=== PATIENT | male | born 1940 | race Caucasian/White ===

== ENCOUNTER 2025-01-16 07:42 | Inpatient (IN) | payer MEDICARE, OTHER, SELFPAY ==
[2025-01-16] VITALS (50 sets, daily range): BP systolic 103–133; BP diastolic 54–88; PULSE 77–114; RESP 16; TEMP 36.4–37.3; O2SAT 88–100; BMI 16.7; BMI 21.4
--- NOTE | 2025-01-16 07:42 | XR_ITS ---
The [address] [address] Patient Name: HOLLY AGUIAR MRN: [id number] date: 1940 Sex: M Assigned Patient Location: ED.MAIN Current Patient Location: ED.MAIN Accession/Order Number: [id number] Exam Date: 01/16/2025 08:04 Report Date: 01/16/2025 08:05 At the request of: ADA RAJPUT MD Procedure: XR chest 1V Single view chest INDICATION: Shortness breath COMPARISON: None FINDINGS: Sternotomy wires. Unremarkable cardiomediastinal silhouette. Prominence of the perihilar vasculature noted. Interstitial thickening involving lungs likely interstitial edema and vascular stent. No large effusion or airspace disease. No pneumothorax. XR/XR chest 1V IMPRESSION: Findings suggestive of edema and CHF. Impression dictated by: Tavo Colon M.D. 01/16/2025 8:05 AM Dictation Location: [place] [address] Electronically authenticated by: [id number] Y Date: 01/16/2025 08:05
--- NOTE | 2025-01-16 07:42 | ECG_ITS ---
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 Measurements Intervals [place] Rate: 106 P: 100 MD: 156 QRS: 78 QRSD: 70 T: 90 QT: 300 QTc: 362 Interpretive Statements 1120 Sinus tachycardia 3433 Septal myocardial infarction, probably old [address] depression 8100 Low QRS voltage 9150 abnormal ECG No previous ECG available for comparison Electronically Signed On 01-16-2025 19:31:15 EDT by DIXON BAHENA M.D.
--- OUTSIDE RECORDS SUMMARY | 2025-01-16 07:48 | XMS_ITS | Encounter Summary ---
Author [facility] tem Address [id number] [address] [place] [address] Care Team Providers Care Garment Liner Name Role Phone Maria Teresa Suresh NON PROFIT FINANCIAL CONTROLLER-[facility] Primary Care Provi tiny Encounter Details Date Type Department Care Team (Late st Contact Info) Description 07/04/2022 [facility] [address] [place] [address] [place] [address] Maria Teresa Suresh, NON PROFIT FINANCIAL CONTROLLER-[facility] [address] [facility] B, [facility] [place] [address] Social History Tobacco Use Types Packs/Day Years Used Date Smoking Tobacco: Former Cigarettes 2 25 Smokeless Tobacco: Never Alcohol Use Standard Drinks/Week Comments No 0 (1 standard drink = 0.6 oz pur e alcohol) PHQ-2 Answer Date Recorded Total Score 0 01/10/2022 Childcare Answer Date Recorded Childcare Unknown 11/12/2018 Employment Answer Date Recorded Employment Unknown 11/12/2018 Purpose - Life Answer Date Recorded Purpose and direction in life Unknown Sex and Gender Information Value Date Recorded Sex Assigned at Not on file Legal Sex Male 1:01 PM EDT Gender Identity Not on file Sexual Orientation Not on file documented as of this encounter Miscellaneous Notes * Telephone Encounter - Sheela Sal - 07/04/2022 11:07 AM EST Patient's spouse called. Patient is applying for assistance for Januvia because previous assistancehas run out. Patient would like provider to send in refill for 90 day to [facility] if possible. Thanks. * Telephone Encounter - JUAN Jarrett - 07/04/2022 11:07 AM EST done documented in this encounter Plan of Treatment Upcoming Encounters Date Type Department Care Team (Late st Contact Info) Description 02/06/2025 4:00 PM EDT Office Visit [facility] [address] [place] [phone] Adal Dhaliwal MD [address] [place] [address] documented as of this encounter Visit Diagnoses Not on filedocumented in this encounter Additional Health Concerns Assessment Noted Time PHQ-9 Depression Total Score: 0 01/11/20 22 1:04 PM EDT documented as of this encounter Care Teams Garment Liner Relationship Specialty Start Date End Date Maria Teresa Suresh APRN-CNP [address] [place] [address] PCP - General Family Medicine 07/28/17 documented as of this encounter
--- OUTSIDE RECORDS SUMMARY | 2025-01-16 07:48 | XMS_ITS | Encounter Summary ---
Author Organization [facility] tem Address [id number] [address] [place] [address] Care Team Providers Care Inspector Motor Vehicles Name Role Phone Maria Teresa Suresh PLASTIC SURGERY ASSISTANT-COMIC WRITER Primary Care Provi tiny Encounter Details Date Type Department Care Team (Late st Contact Info) Description 10/11/2021 Refill [facility] [address] [place] [address] [place] [address] Marcelle Lorenz CMA Social History Tobacco Use Types Packs/Day Years Used Date Smoking Tobacco: Former Cigarettes 2 25 Smokeless Tobacco: Never Alcohol Use Standard Drinks/Week Comments No 0 (1 standard drink = 0.6 oz pur e alcohol) PHQ-2 Answer Date Recorded Total Score 0 07/20/2021 Childcare Answer Date Recorded Childcare Unknown 11/12/2018 [...] encounter Miscellaneous Notes * Telephone Encounter - Marcelle Lorenz CMA - 10/11/2021 12:12 PM EDT ----- Message from Sheela Sal sent at 10/11/2021 12:07 PM EDT ----- Regarding: Prescription Contact: Patient's , Cecilia, contacted [facility] Cilnical Scientist usually orders patient's Rx but has asked the patient to go through PCP for Rosuvastatin 20 mg 1x daily through [facility] mail in. Thanks. documented in this encounter Plan of Treatment Upcoming Encounters Date Type Department Care Team (Late st Contact Info) Description 02/06/2025 4:00 PM EDT Office Visit [facility] [address] [place] [phone] Adal Dhaliwal MD [address] [place], [place] [phone] documented as of this encounter Visit Diagnoses Not on filedocumented in this encounter Additional Health Concerns Assessment Noted Time PHQ-9 Depression Total Score: 0 07/20/19 22 1:08 PM EST documented as of this encounter Care Teams Inspector Motor Vehicles Relationship Specialty Start Date End Date Maria Teresa Suresh, PLASTIC SURGERY ASSISTANT-COMIC WRITER [address], [place] [address] PCP - General Family Medicine 07/28/17 documented as of this encounter
--- OUTSIDE RECORDS SUMMARY | 2025-01-16 07:48 | XMS_ITS | Encounter Summary ---
Author Organization [employer] tem Address [id number] [address] [place] [address] Care Team Providers Care Cargo Service Supervisor Name Role Phone Maria Teresa Suresh HUMAN RELATIONS MANAGER-SUPERVISOR GROUNDS Primary Care Provi tiny Reason for Visit * Reason Comments Med Refill Encounter Details Date Type Department Care Team ([facility] Contact Info) Description 06/15/2022 Refill [facility] [address] [facility] [place] [address] [place] [address] Maria Teresa Suresh, HUMAN RELATIONS MANAGER-SUPERVISOR GROUNDS [address] [facility] B, [facility] [place] [address] Type 2 diabetes mellitus with complication, without long-term current use of insulin ([facility]); Essential hypertension Social History Tobacco Use Types Packs/Day Years [...] on file documented as of this encounter Plan of Treatment Upcoming Encounters Date Type Department Care Team ([facility] Contact Info) Description 02/06/2025 4:00 PM EDT Office Visit [facility] [address] [place] [phone] Adal Dhaliwal MD [address] [place] [address] documented as of this encounter Visit Diagnoses Diagnosis Type 2 diabetes mellitus with complication, without long-term current use of insulin ([facility]) Essential hypertension Unspecified essential hypertension documented in this encounter Additional Health Concerns Assessment Noted Time PHQ-9 Depression Total Score: 0 01/11/20 22 1:04 PM EDT documented as of this encounter Care Teams Cargo Service Supervisor Relationship Specialty Start Date End Date Maria Teresa Suresh, COY-SUPERVISOR GROUNDS [address], [place] [address] PCP - General Family Medicine 07/28/17 documented as of this encounter
--- OUTSIDE RECORDS SUMMARY | 2025-01-16 07:48 | XMS_ITS | Encounter Summary ---
Author Organization [employer] [facility] tem Address [facility][id number] [address] [place] [address] Care Team Providers Care Computer Science Teacher Name Role Phone Maria Teresa Suresh FREIGHT ENGINEER-[facility] Primary Care Provi tiny Reason for Visit * Reason Comments Med Refill Encounter Details Date Type Department Care Team ([facility] Contact Info) Description 02/28/2022 Refill [facility] [address] [place] [phone] Maria Teresa Suresh, FREIGHT ENGINEERBOSTON NURS[facility] FOR BL[facility] [address] [place] [address] B, [place] [phone] Social History Tobacco Use Types Packs/Day Years [...] Upcoming Encounters Date Type Department Care Team ([facility] Contact Info) Description 02/06/2025 4:00 PM EDT Office Visit [facility] [address] [place] [phone] Adal Dhaliwal MD [address] [place], [place] [phone] documented as of this encounter Visit Diagnoses Not on filedocumented in this encounter Additional Health Concerns Assessment Noted Time PHQ-9 Depression Total Score: 0 01/11/20 22 1:04 PM EDT documented as of this encounter Care Teams Computer Science Teacher Relationship Specialty Start Date End Date Maria Teresa Suresh, FREIGHT ENGINEER-GROCERY BAGGER [address], [place] [address] PCP - General Family Medicine 07/28/17 documented as of this encounter
--- OUTSIDE RECORDS SUMMARY | 2025-01-16 07:48 | XMS_ITS | Encounter Summary ---
Author Organization [employer] tem Address [id number] [address] [place] [address] Care Team Providers Care Wall Crane Operator Name Role Phone Maria Teresa Suresh GAS WELDER APPRENTICE-[facility] Primary Care Provi tiny Reason for Visit * Reason Comments Med Refill Encounter Details Date Type Department Care Team (Late Contact Info) Description 10/31/2022 Refill [facility] [address] [place] [phone] Tricia Snider APRN-[facility] [address] [place], [place] [phone] Social History Tobacco Use Types Packs/Day Years [...] Encounters Date Type Department Care Team (Late Contact Info) Description 02/06/2025 4:00 PM EDT Office Visit [facility] [address] [place] [address] Adal Dhaliwal MD [address] [place], [place] [phone] documented as of this encounter Visit Diagnoses Not on filedocumented in this encounter Additional Health Concerns Assessment Noted Time PHQ-9 Depression Total Score: 0 01/11/20 22 1:04 PM EDT documented as of this encounter Care Teams Wall Crane Operator Relationship Specialty Start Date End Date Maria Teresa Suresh, GAS WELDER APPRENTICE-AIR CARRIER OPERATIONS INSPECTOR [address], [place] [address] PCP - General Family Medicine 07/28/17 documented as of this encounter
--- OUTSIDE RECORDS SUMMARY | 2025-01-16 07:48 | XMS_ITS | Encounter Summary ---
Author Organization [employer] tem Address [facility][id number] [address] [place] [address] Care Team Providers Care Manager Outreach Name Role Phone Maria Teresa Suresh PRINCIPAL JAVA DEVELOPER-RESEARCH ANTHROPOLOGIST Primary Care Provi tiny Reason for Visit * Reason Onset Date Comments HomeCare Update 06/06/2024 Encounter Details Date Type Department Care Team (Late Contact Info) Description 06/06/2024 [facility] [address] [place] [address] [place] [address] Anjali Juarez CNA HomeCare Update Social History Tobacco Use Types Packs/Day Years Used Date Smoking Tobacco: Former Cigarettes 2 25 Smokeless Tobacco: Never Alcohol Use Standard Drinks/Week Comments No 0 (1 standard drink = 0.6 oz pur e alcohol) [facility] Utilities Answer Date Recorded In the past 12 months has e [employer], gas, oil, or water company threatened to shut off services in your home? No 04/01/2024 PHQ-2 Answer Date Recorded Total Score 2 02/07/2024 PRAPARE - Transportation Answer Date Re corded In the past 12 months, has l ack of transportation kept you from medical appointments or from getting medications? No 03/06 In the past 12 months, has l ack of transportation kept you from meetings, work, or from getting things needed for daily living? No 04/01/2024 Housing Instability Answer Date Recorde d Are you worried or concerned that in the next two months you may not have stable housing that you own, rent or stay in as a part of a household? No 04/01/2024 Childcare Answer Date Recorded Childcare Unknown 11/12/2018 Employment Answer Date Recorded Employment Unknown 11/12/2018 Hunger Screening Answer Date Recorded Within the past 12 months we worried whether our food would run out before we got money to buy more. Never True 06/07/2024 Within the past 12 months th e food we bought just didn't last and we didn't have money to get more. Never True 06/07/2024 Purpose - Life Answer Date Recorded Purpose and direction in life Unknown Sex and Gender Information Value Date Recorded Sex Assigned at Not on file Legal Sex Male 1:01 PM EDT Gender Identity Not on file Sexual Orientation Not on file documented as of this encounter Miscellaneous Notes * Telephone Encounter - Anjali Juarez CNA - 06/06/2024 12:41 PM EST Radha from [facility] called to inform provider they were able to get Wagner re-certified for another 60 days due to the open wound on his leg. documented in this encounter Plan of Treatment Upcoming Encounters Date Type Department Care Team (Late st Contact Info) Description 02/06/2025 4:00 PM EDT Office Visit [facility] [address] [place] [phone] Adal Dhaliwal MD [address] [place], [place] [phone] documented as of this encounter Goals Goal Patient Goal Type Associated Problems Recent Progress Patient-Stated? Author Home with [facility] General Yes Maya Rasmussen LSW Note: Evaluation of progress towards goal: In progress: Home with [facility] . Updated goal: [place] to home with [facility] son, [facility] OF[facility]IA Boles, 04/05/2024, 12:30 PM documented as of this encounter Visit Diagnoses Not on filedocumented in this encounter Additional Health Concerns Assessment Noted Time PHQ-9 Depression Total Score: 2 02/07/20 24 2:00 PM EDT documented as of this encounter Care Teams Manager Outreach Relationship Specialty Start Date End Date Maria Teresa Suresh, PRINCIPAL JAVA DEVELOPER-RESEARCH ANTHROPOLOGIST [address], [place] [address] PCP - General Family Medicine 07/28/17 documented as of this encounter
--- OUTSIDE RECORDS SUMMARY | 2025-01-16 07:48 | XMS_ITS | Encounter Summary ---
Author Organization [employer] [facility] tem Address [facility][id number] [address] [place] [address] Care Team Providers Care Stretcher Leveler Operator Name Role Phone Maria Teresa Suresh ACCOUNTING RECRUITER-[facility] Primary Care Provi tiny Reason for Visit * Reason Comments Med Refill Encounter Details Date Type Department Care Team (Late Contact Info) Description 08/14/2022 Refill [facility] [address] [place] [phone] Maria Teresa Suresh, ACCOUNTING [facility] [address] [place] [address] B, [place] [phone] Social History Tobacco Use Types Packs/Day Years [...] EDT Office Visit [facility] [address] [place] [phone] Adal Dhaliawl MD [address] [place], [place] [phone] documented as of this encounter Visit Diagnoses Not on filedocumented in this encounter Additional Health Concerns Assessment Noted Time PHQ-9 Depression Total Score: 0 01/11/20 22 1:04 PM EDT documented as of this encounter Care Teams Stretcher Leveler Operator Relationship Specialty Start Date End Date Maria Teresa Suresh, ACCOUNTING RECRUITER-CHEMICAL UNIT OPERATOR [address], [place] [address] PCP - General Family Medicine 07/28/17 documented as of this encounter
--- OUTSIDE RECORDS SUMMARY | 2025-01-16 07:48 | XMS_ITS | Clinical Summary ---
Author Organization [facility] Address [address] [place], [place] [address] Care Team Providers Care Medical Associate Name Role Phone Jacob Jim MD Primary Care Provider [phone] Medications DIOVAN 80MG TABLET Take one(1) tablet daily. 0 12/01/2003 Active GLUCOTROL XL 10MG TABLET SA Take one(1) tablet daily. 0 12/01/2003 Active ASPIRIN 325MG TABLET Take one(1) tablet daily. 0 12/01/2003 Active RA VITAMIN E 400IU TABLET Take one(1) tablet daily. 0 12/01/2003 Active FISH OIL 500MG SOFTGEL Take one(1) tablet daily. 0 12/01/2003 Active RA SAW PALMETTO 80MG CAP Take one(1) tablet daily. 0 12/01/2003 Active LYCOTENE 6MG SOFTGEL Take one(1) tablet daily. 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 Carpal tunnel syndrome 10/08/2003 Social History Tobacco Use Types Packs/Day Years Used Date Smoking Tobacco: Every Day Cigarettes 2 40 Alcohol Use Standard Drinks/Week Comments Yes 0 (1 standard drink = 0.6 oz pur e alcohol) Sex and Gender Information Value Date Recorded Sex Assigned at Not on file Legal Sex Male 10:03 AM EST Gender Identity Not on file Sexual Orientation Not on file Last Filed Vital Signs Vital Sign Reading Time Taken Comments Blood Pressure 140/82 03/30/2004 1:22 PM EDT Pulse 76 03/30/2004 1:22 PM EDT Temperature 36.9 C (98.4 F) 03/30/2004 1:22 PM EDT Respiratory Rate 16 03/30/2004 1:22 PM EDT Oxygen Saturation - - Inhaled Oxygen Concentration - - Weight 104.3 kg (230 lb) 03/30/2004 1:22 PM EDT Height 188 cm (6' 2 ) 03/30/2004 1:22 PM EDT Body Mass Index 29.53 03/30/2004 1:22 PM EDT Plan of Treatment Health Maintenance Due Date Last Done Comments Anxiety Screening 1960 Depression Screening 1958 DTaP,Tdap,Td Vaccine (1 - Tdap) 1961 Pneumococcal Vaccine: 50+ (1 of 1 - PCV) 1992 Shingrix Vaccine (1 of 2) 1992 Diabetes Screening 03/30/2007 03/30/2004, 12/01/2003 RSV Vaccine (1 - 1-dose 75+ series) 2017 Advance Directive Discussion 06/05/2024 Influenza Vaccine (#1) 2025 Procedures Procedure Name Priority Date/Time Associated Diagnosis Comments BASIC METABOLIC PANEL 03/30/2004 1:14 PM EDT from Last 3 Months or Most Recently Relevant to Health Maintenance Results * (ABNORMAL) BASIC METABOLIC PNL (03/30/2004 1:14 PM EDT) Glucose 152(A) 65 - 100 mg/dL [facility] BUN 12 10 - 25 mg/dL [facility] Creatinine 0.9 0.7 - 1.4 mg/dL [facility] Sodium 138 135 - 146 mmol/L [facility] Potassium 4.1 3.5 - 5.0 mmol/L [facility] Chloride 102 98 - 110 mmol/L [facility] CO2 22(A) 24 - 32 mmol/L [facility] Anion Gap 14 0 - 15 mmol/L [facility] Calcium 9.8 8.5 - 10.5 mg/dL [facility] GFR (RENFUN) 91 [facility] 03/30/2004 1:14 PM EDT [facility] Final Result [facility] [address] [place] [address] from Last 3 Months or Most Recently Relevant to Health Maintenance Insurance MEDICARE Member Subscriber Plan / Payer ( fective 2007-Present) Name:Wagner Tran Member ID:[id number] Relation to Subscriber:Self Name:Wagner Tran Subscriber ID:[id number] Payer ID:Not on file Group ID:Not on file Type:Medicare Address: [facility] [place] [id number] [employer] Care Teams Medical Associate Relationship Specialty Start Date End Date Jacob Jim MD [address] [place] [address] PCP - General 10/01/03
--- OUTSIDE RECORDS SUMMARY | 2025-01-16 07:48 | XMS_ITS | Encounter Summary ---
Author Organization [employer] Address [id number] [address] [place] [address] Care Team Providers Care Lead Systems Analyst Name Role Phone Maria Teresa Suresh COMPLAINT CLERK-LANDING SCALER Primary Care Provi tiny Reason for Visit * Reason Comments Med Refill Encounter Details Date Type Department Care Team (Late st Contact Info) Description 12/19/2021 Refill [facility] [address] [place] [address] Maria Teresa Suresh, COMPLAINT CLERK-LANDING SCALER [address] [facility] B, [facility] [address] Type 2 diabetes mellitus with complication, without long-term current use of insulin ([facility]); Essential hypertension Social History Tobacco Use Types Packs/Day Years Used Date Smoking Tobacco: Former Cigarettes 2 25 Smokeless Tobacco: Never Alcohol Use Standard Drinks/Week Comments No 0 (1 standard drink = 0.6 oz pur e alcohol) PHQ-2 Answer Date Recorded Total Score 1 12/22/2021 Childcare Answer Date Recorded Childcare Unknown 11/12/2018 Employment Answer Date Recorded Employment Unknown 11/12/2018 Purpose - Life Answer Date Recorded Purpose and direction in life Unknown Sex and Gender Information Value Date Recorded Sex Assigned at Not on file Legal Sex Male 1:01 PM EDT Gender Identity Not on file Sexual Orientation Not on file COVID-19 Exposure Response Date Recorded In the last month, have you been in contact with someone who was confirmed or suspected to have Coronavirus / COVID-19? No / Unsure 12/22/2021 12:52 PM EDT documented as of this encounter Plan of Treatment Upcoming Encounters Date Type Department Care Team (Late st Contact Info) Description 02/06/2025 4:00 PM EDT Office Visit [facility] [address] [place] [address] Adal Dhaliwal MD [address] [place], [place] [phone] documented as of this encounter Visit Diagnoses Diagnosis Type 2 diabetes mellitus with complication, without long-term current use of insulin ([facility]) Essential hypertension Unspecified essential hypertension documented in this encounter Additional Health Concerns Assessment Noted Time PHQ-9 Depression Total Score: 0 07/20/19 22 1:08 PM EST documented as of this encounter Care Teams Lead Systems Analyst Relationship Specialty Start Date End Date Maria Teresa Suresh, COMPLAINT CLERK-LANDING SCALER [address], [place] [address] PCP - General Family Medicine 07/28/17 documented as of this encounter
--- OUTSIDE RECORDS SUMMARY | 2025-01-16 07:48 | XMS_ITS | Clinical Summary ---
Author Organization [employer] Address [id number] [address] [place] [address] Care Team Providers Care Matlab Developer Name Role Phone Maria Teresa Suresh PROJECT MANAGEMENT SPECIALIST-BEZEL CUTTER Primary Care Provi tiny Allergies No known active allergies Medications aspirin 81 mg Take 1 tablet (81 mg total) by mouth in the morning. Active coenzyme Q10 75 mg capsule Take 1 capsule by mouth daily. Active blood-glucose meter,continuo us (DEXCOM G7 CORPORATE DEVELOPMENT ANALYST) miscIndication s:Type 2 diabetes mellitus with complication, without long-term current use of insulin ([facility]) Use as directed to monitor blood sugar before and after every meal. 1 each 024 Active blood-glucose sensor (DEXCOM G7 SENSOR) deviceIndicati ons:Type 2 diabetes mellitus with complication, without long-term current use of insulin ([facility]) Use as directed to monitor blood sugar before and after every meal. Change every 10 days. 3 each 024 Active multivit,blayne,m n/folic/D3/lyc op (ONE A DAY MEN COMPLETE ORAL) Take 1 capsule by mouth in the morning. Active SITagliptin phosphate (JANUVIA) 100 mg tabletIndicati ons:Type 2 diabetes mellitus with complication, without long-term current use of insulin ([facility]) Take 1 tablet (100 mg total) by mouth in the morning. 90 tablet 2 024 Active metoprolol tartrate (LOPRESSOR) 25 mg tabletIndicati ons:Type 2 diabetes mellitus with complication, without long-term current use of insulin ([facility]),Stag e 3a chronic kidney disease ([facility]),Bila teral leg edema Take 1 tablet (25 mg total) by mouth in the morning and 1 tablet (25 mg total) before bedtime. 180 tablet 1 024 Active rivaroxaban (XARELTO) 2.5 mg tabletIndicati ons:deep vein thrombosis prevention Take 1 tablet (2.5 mg total) by mouth in the morning and 1 tablet (2.5 mg total) before bedtime. Indications: deep vein thrombosis prevention. Active omeprazole (PriLOSEC) 20 mg capsuleIndicat ions:Gastroeso phageal reflux disease without esophagitis Take 1 capsule (20 mg total) by mouth every morning before breakfast. 90 capsule 1 025 Active glipiZIDE (GLUCOTROL XL) 5 mg 24 hr tabletIndicati ons:Stage 3a chronic kidney disease ([facility]),Bila teral leg edema Take 2 tablets (10 mg total) by mouth in the morning. 90 tablet 1 025 Active isosorbide mononitrate (IMDUR) 30 mg 24 hr tablet Take 1 tablet (30 mg total) by mouth daily. 90 tablet 1 025 Active potassium chloride (K-TAB,KLOR-CO N) 10 MEQ CR tabletIndicati ons:Stage 3a chronic kidney disease ([facility]),Bila teral leg edema Take 1 tablet (10 mEq total) by mouth every other day. 90 tablet 025 Active empagliflozin (JARDIANCE) 10 mg tablet tabletIndicati ons:Stage 3a chronic kidney disease ([facility]),Bila teral leg edema Take 1 tablet (10 mg total) by mouth in the morning. 90 tablet 1 025 Active rosuvastatin (CRESTOR) 20 mg tablet Take 1 tablet (20 mg total) by mouth in the morning. 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 60 capsule 3 025 Active ferrous sulfate (FeroSuL) 325 (65 FE) MG tabletIndicati ons:Stage 3a chronic kidney disease ([facility]),Bila teral leg edema Take 1 tablet by mouth once daily with breakfast 90 tablet 2 025 Active LANTUS SOLOSTAR U-100 INSULIN 100 unit/mL (3 mL) insulin penIndications :Type 2 diabetes mellitus with complication, without long-term current use of insulin ([facility]) INJECT 12 UNITS SUBCUTANEOUSLY IN THE MORNING 15 mL 2 025 Active pen needle, diabetic 32 gauge x needle USE 1 ONCE DAILY IN THE MORNING 100 each 1 025 Active magnesium oxide (MAGOX) 400 mg tablet TAKE 2 TABLETS BY MOUTH TWICE DAILY IN THE MORNING AND BEFORE BEDTIME 180 tablet 025 Active bumetanide (BUMEX) 1 mg tabletIndicati ons:Stage 3a chronic kidney disease ([facility]),Bila teral leg edema TAKE 3 TABLETS BY MOUTH EVERY OTHER DAY 90 tablet 025 Active bumetanide (BUMEX) 1 mg tabletIndicati ons:Stage 3a chronic kidney disease ([facility]),Bila teral leg edema TAKE 3 TABLETS BY MOUTH EVERY OTHER DAY 90 tablet 1 025 2024 Discontinued Active Problems Patient Care Coordination No te Formatting of this note migh t be different from the original. 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 05/15/2024 Anemia 05/06/2024 Health care maintenance 04/24/2024 Open wound of left lower extremity, initial enco unter 04/01/2024 ASCVD--CABG x5 2010 [facility] [employer] 06/23/2023 Acute kidney failure, unspecified 06/05/2023 Abnormal EKG 05/08/2023 Stage 3a chronic kidney disease 05/08/2023 Dyspnea on exertion 05/03/2023 Irregular heart beat 01/30/2023 Healthcare maintenance 04/11/2022 Type 2 diabetes mellitus wit h complication, without long-term current use of insulin 08/31/2020 Vitamin B 12 deficiency 07/03/2019 Bilateral leg edema 02/27/2019 Medicare annual wellness visit, subsequent 08/17 Cardiac insufficiency following cardiac surgery 01/12/2011 Acute blood loss anemia 01/11/2011 Pain in limb 12/17/2003 Ulnar nerve abnormality 12/17/2003 Carpal tunnel syndrome 10/08/2003 Hypertension Heart attack Hyperlipidemia Resolved Problems Problem Noted Date Diagnosed Date Resolved Date PVC (premature ventricular contraction) 06/23/2023 02/19/2024 Ankle edema, bilateral 06/23/202302/27 Ankle ulcer, left, limited t o breakdown of skin 07/13/2022 01/30/2023 Abnormal lung sounds 01/10/2022 023 Abrasion of left forearm 12/08/2020 Chronic rhinitis 01/08/2020 05/03/2023 Obesity 07/27/2017 Encounters Date Type Department Care Team Description 12/26/2024 Refill [facility] [address] [place] [address] [place] [phone] Maria Teresa Suresh, PROJECT MANAGEMENT SPECIALIST-BEZEL CUTTER Stage 3a chronic kidney disease ([facility]); Bilateral leg edema 12/03/2024 Refill [facility] [address] [place] [address] Adelina Pritchard, PROJECT MANAGEMENT SPECIALIST-BEZEL CUTTER 11/26/2024 Refill [facility] [address] [place] [address] [place] [phone] Maria Teresa Suresh PROJECT MANAGEMENT SPECIALIST-BEZEL CUTTER 11/24/2024 11:47 AM EDT - 11/25/2024 9:15 AM EDT Emergency [facility] [address] [place] [address] Wesley Ward DO Wound infection (Primary Dx) Discharge Disposition: [facility] 11/24/2024 Travel 11/16/2024 Refill [facility] [address] [place] [address] [place] [address] Maria Teresa Suresh APRN-CNP Type 2 diabetes mellitus with complication, without long-term current use of insulin ([facility]) 11/09/2024 Refill [facility] [address] [place] [phone] Maria Teresa Suresh APRN-CNP Stage 3a chronic kidney disease ([facility]); Bilateral leg edema 10/25/2024 Orders Only [facility] [address] [place] [phone] Maria Teresa Suresh APRN-CNP Non-pressure chronic ulcer of left lower leg with fat layer exposed ([facility]) (Primary Dx) 10/24/2024 Telephone [facility] [address] [place] [phone] Mihaela Gerber CNA medication from Last 3 Months Immunizations Immunization Administration Dates Next Due Covid-19, Mrna, Lnp-s, Pf,valeri-sucrose,30 Mcg/0.3ml Seasonal 04/24/2024 H1N1 Inj Preservative Free 05/18/2009 Influenza (IM) Preservative Free 04/05/2024 Influenza Vaccine, Quadrival ent, Adjuvanted 04/10/2023,04/11/2022 Influenza, High-dose, Quadrivalent 03/22/2021 Influenza, Im Trivalent Preservative 04/22/2014, 04/08/2013 Influenza, Injectable, quadr ivalent (PF) 03/03/2017,05/02/2016,03/09/2015,04/14 Influenza, Trivalent, Adjuvanted 04/01/2020,04/06 Influenza, Unspecified 05/02/2016 Pneumococcal Conjugate 13-Valent 04/16/2015 Pneumococcal Conjugate 20-valent 02/07/2024 Pneumococcal Polysaccharide 02/18/2014 Pneumococcal, Unspecified 04/16/2015,02/18/2014 Tdap 12/26/2018 Family History Medical History Relation Name Comments Diabetes Brother Cancer Father rectal with meggan er mets Dementia Mother Diabetes Mother Angina Paternal Grandfather Relation Name Status Comments Brother Alive Father Mother Paternal Grandfather Social History Tobacco Use Types Packs/Day Years Used Date Smoking Tobacco: Former Cigarettes 2 25 Smokeless Tobacco: Never Tobacco Cessation:Counseling Given: Not Answered Alcohol Use Standard Drinks/Week Comments No 0 (1 standard drink = 0.6 oz pur e alcohol) [facility] Utilities Answer Date Recorded In the past 12 months has th e electric, gas, oil, or water company threatened to shut off services in your home? No 04/01/2024 PHQ-2 Answer Date Recorded Total Score 0 07/29/2024 PRAPARE - Transportation Answer Date Re corded [...] got money to buy more. Never True 11/24/2024 Within the past 12 months th e food we bought just didn't last and we didn't have money to get more. Never True 11/24/2024 Purpose - Life Answer Date Recorded Purpose and direction in life Unknown Sex and Gender Information Value Date Recorded Sex Assigned at Not on file Legal Sex Male 1:01 PM EDT Gender Identity Not on file Sexual Orientation Not on file Last Filed Vital Signs Vital Sign Reading Time Taken Comments Blood Pressure 143/73 11/25/2024 8:45 AM EDT Pulse 82 11/24/2024 3:43 PM EDT Temperature 36.8 C (98.3 F) 11/24/2024 11:56 AM EDT Respiratory Rate 16 11/24/2024 3:43 PM EDT Oxygen Saturation 98% 11/25/2024 1:45 AM EDT Inhaled Oxygen Concentration - - Weight 68 kg (150 lb) 11/24/2024 11:56 AM EDT Height 182.9 cm (6') 11/24/2024 11:56 AM EDT Body Mass Index 20.34 11/24/2024 11:56 AM EDT Plan of Treatment Upcoming Encounters Date Type Department Care Team (Late st Contact Info) Description 02/06/2025 4:00 PM EDT Office Visit [facility] [address] [place] [phone] Adal Dhaliwal MD [address] [place] [address] Health Maintenance Due Date Last Done Comments Zoster (Shingles) Vaccine (1 of 2) 1992 Abdominal Aortic Aneurysm (A AA) Screen 11/08/2007 COVID-19 Vaccine (2023-2 5 season) 2024 04/24/2024, 03/02/2023, 02/10/2022, Additional history exists Influenza Vaccine 02/03/2025 04/05/2024, , 04/11/2022, Additional history exists Fall Risk Screening 02/06/2025 02/07/2024 Medicare Annual Wellness Visit 02/06/2025 0 02/07/2024, 01/04/2023, 12/22/2021, Additional history exists Depression Screening 07/29/2025 07/29/2024 Tobacco Screening 11/24/2025 11/24/2024 DTaP,Tdap and Td Vaccines (2 - Td or Tdap) 12/26/2028 12/26/2018 Goals Goal Patient Goal Type Associated Problems Recent Progress Patient-Stated? Author Home with [facility] General Yes Maya Rasmussen LSW Note: Evaluation of progress towards goal: In progress: Home with [facility] . Updated goal: DC to home with his son, Dakota and [facility]. OFELIA Boles, 04/05/2024, 12:30 PM Medical Devices Implanted Type Area Asset Specialist Device Identifier Shelf Expiration Date Model / Serial / Lot Acrysof Iol +20.5 D Implanted:Qty: 1 on 11/02/2023 by Renetta Bhagat MD at [facility] Other Implant [employer] 12/27/2025 DC60 / [id number] / N/A Procedures Procedure Name Priority Date/Time Associated Diagnosis Comments CBC WITH AUTO DIFFERENTIAL Routine 11/25/2024 5:01 AM EDT COMPREHENSIVE METABOLIC PANEL Routine 11/25/2024 5:01 AM EDT EXTRA TUBES SST TOP Routine 11/25/2024 5 :00 AM EDT EXTRA TUBES BLUE TOP Routine 11/25/2024 5:00 AM EDT EXTRA TUBES Routine 11/25/2024 5:00 AM EDT SUPERFICIAL WOUND CULTURE STAT 11/24/2024 2:49 PM EDT BLOOD CULTURE STAT 11/24/2024 2:12 PM EDT BLOOD CULTURE STAT 11/24/2024 2:05 PM EDT EXTRA TUBES BLUE TOP Routine 11/24/2024 1:21 PM EDT EXTRA TUBES Routine 11/24/2024 1:21 PM EDT LACTATE W/ REFLEX STAT 11/24/2024 1:2 0 PM EDT COMPREHENSIVE METABOLIC PANEL STAT 11/24/2024 1:20 PM EDT CBC WITH AUTO DIFFERENTIAL STAT 11/24/2024 1:20 PM EDT XR TIBIA FIBULA LT MIN 2 VWS STAT 11/24/2024 12:57 PM EDT XR FOOT LT MIN 3 VWS STAT 11/24/2024 12:56 PM EDT from Last 3 Months Results * (ABNORMAL) CBC auto differential (11/25/2024 5:01 AM EDT) Only the most recent of2 resultswithin the time period is included. WBC 23.1(H) 4 - 11 x10E9/L 11/25/2024 6:33 AM EDT [facility] RBC Count 3.63(L) 4.1 - 5.7 X10E12/L 11/25/2024 6:33 AM EDT [facility] Hemoglobin 9.1(L) 13 - 17 g/dL 11/25/2024 6:33 AM EDT [facility] Hematocrit 28.4(L) 39 - 50 % 11/25/2024 6:33 AM EDT [facility] MCV 78(L) 80 - 100 fL 11/25/2024 6:33 AM EDT [facility] MCH 25.0(L) 27 - 34 pg 11/25/2024 6:33 AM EDT [facility] MCHC 31.9(L) 32 - 36 g/dL 11/25/2024 6:33 AM EDT [facility] RDW 16.5(H) 11.5 - 15 % 11/25/2024 6:33 AM EDT [facility] Platelet Count 453(H) 150 - 450 X10E9/L 11/25/2024 6:33 AM EDT [facility] MPV 7.4 7 - 12 fL 11/25/2024 6:33 AM EDT [facility] Bands % 1 % 11/25/2024 6:33 AM EDT [facility] Comment:This is an appended report. These results have been appended to a previously preliminary verified report. Neutrophils % 95 % 11/25/2024 6:33 AM EDT [facility] Comment:This is an appended report. These results have been appended to a previously preliminary verified report. Lymphocytes % 2 % 11/25/2024 6:33 AM EDT [facility] Comment:This is an appended report. These results have been appended to a previously preliminary verified report. Monocytes % 2 % 11/25/2024 6:33 AM EDT [facility] Comment:This is an appended report. These results have been appended to a previously preliminary verified report. Neutrophils Absolute (M) 22.1(H) 1.5 - 6.6 10*3/uL 11/25/2024 6:33 AM EDT [facility] Comment:This is an appended report. These results have been appended to a previously preliminary verified report. Lymphocytes Absolute 0.5(L) 1.0 - 3.5 10*3/uL 11/25/2024 6:33 AM EDT [facility] Comment:This is an appended report. These results have been appended to a previously preliminary verified report. Monocytes Absolute 0.5 0.0 - 0.9 10*3/uL 11/25/2024 6:33 AM EDT [facility] Comment:This is an appended report. These results have been appended to a previously preliminary verified report. RBC Morphology Reviewed 11/25/2024 6:33 AM EDT [facility] Comment:This is an appended report. These results have been appended to a previously preliminary verified report. Differential Type MANUAL DIFFERENTIAL 11/25/2024 6:33 AM EDT [facility] Comment:This is an appended report. These results have been appended to a previously preliminary verified report. Blood Venous blood / Unknown Venipuncture / Unknown 11/25/2024 5:01 AM EDT 11/25/2024 5:05 AM EDT us Vero Whitaker PROJECT MANAGEMENT SPECIALIST-BEZEL CUTTER LAB BLOOD ORDERABLES F inal Result [facility] [address] [place] [address], * (ABNORMAL) Comprehensive metabolic panel (11/25/2024 5:01 AM EDT) Only the most recent of2 resultswithin the time period is included. SODIUM 134 134 - 146 mmol/L 11/25/2024 5:29 AM EDT [facility] POTASSIUM 3.9 3.5 - 5.0 mmol/L 11/25/2024 5:29 AM EDT [facility] CHLORIDE 100 98 - 109 mmol/L 11/25/2024 5:29 AM EDT [facility] CARBON DIOXIDE 24 22 - 32 mmol/L 11/25/2024 5:29 AM EDT [facility] ANION GAP 10 5 - 15 mmol/L 11/25/2024 5:29 AM EDT [facility] BLOOD UREA NITROGEN 19 5 - 27 mg/dL 11/25/2024 5:29 AM EDT [facility] CREATININE 1.38(H) 0.70 - 1.20 mg/dL 11/25/2024 5:29 AM EDT [facility] Comment:METHOD TRACEABLE TO IDMO STANDARD GLUCOSE 251(H) 65 - 99 mg/dL 11/25/2024 5:29 AM EDT [facility] CALCIUM 8.8 8.5 - 10.5 mg/dL 11/25/2024 5:29 AM EDT [facility] TOTAL PROTEIN 5.8(L) 6.0 - 8.0 g/dL 11/25/2024 5:29 AM EDT [facility] ALBUMIN 2.0(L) 3.2 - 5.3 g/dL 11/25/2024 5:29 AM EDT [facility] ALKALINE PHOSPHATASE 283(H) 39 - 130 U/L 11/25/2024 5:29 AM EDT [facility] AST 44(H) <=41 U/L 11/25/2024 5:29 AM EDT [facility] ALT 55(H) <=40 U/L 11/25/2024 5:29 AM EDT [facility] BILIRUBIN,TOTAL 0.5 0.3 - 1.2 mg/dL 11/25/2024 5:29 AM EDT [facility] EGFR Non-Race Dependent 51(L) >=60 ml/min/1.7 3sq.m 11/25/2024 5:29 AM EDT [facility] Comment: eGFR not reported due to non-numeric value for Creatinine. Reported eGFR is based on the CKD-EPI 2020 equation that does not use a race coefficient. Blood Venous blood / Unknown Venipuncture / Unknown 11/25/2024 5:01 AM EDT 11/25/2024 5:05 AM EDT us Vero Whitaker PROJECT MANAGEMENT SPECIALIST-BEZEL CUTTER LAB BLOOD ORDERABLES F inal Result Performing Organization Address City/[facility]/ZIP Co de Phone Number [address] [place] [address], [place] * SST TOP (11/25/2024 5:00 AM EDT) Extra Tube Auto Resulted 11/25/2024 6:03 AM EDT [facility] Blood Venous blood / Unknown 11/25/2024 5:00 AM EDT 11/25/2024 5:06 AM EDT Wesley Ward LAB BLOOD ORDERABLES Final R esult Performing Organization Address [facility] Co de Phone Number [address] [place] [address], [place] * Light Blue Top (11/25/2024 5:00 AM EDT) Only the most recent of2 resultswithin the time period is included. Extra Tube Auto Resulted 11/25/2024 6:03 AM EDT [facility] Blood Venous blood / Unknown 11/25/2024 5:00 AM EDT 11/25/2024 5:06 AM EDT Wesley Ward DO LAB BLOOD ORDERABLES Final R esult Performing Organization Address City/[facility]/ZIP Co de Phone Number [address] [place] [address], [place] * Wound culture (11/24/2024 2:49 PM EDT) CULTURE RESULTS NORMAL SKIN MILTON 11/26/2024 10:23 AM EDT [facility] GRAM STAIN 1 to 9 White Blood Cells/LPF 11/26/2024 10:23 AM EDT [facility] GRAM STAIN 0 Squamous Epithelial Cells/LPF 11/26/2024 10:23 AM EDT [facility] GRAM STAIN No organisms seen 11/26/2024 10:23 AM EDT [facility] Swab Structure of left foot / Unknown 11/24/2024 2:49 PM EDT 11/24/2024 3:43 PM EDT Vero Whitaker PROJECT MANAGEMENT SPECIALIST-BEZEL CUTTER MICROBIOLOGY - GENERAL ORDERABLES Final Result [facility] [address] [place] [address], * Blood culture (11/24/2024 2:12 PM EDT) Only the most recent of2 resultswithin the time period is included. CULTURE RESULTS NO GROWTH 5 DAYS 11/29/2024 10:01 PM EDT [facility] Blood Venous blood / Unknown Venipuncture / Unknown 11/24/2024 2:12 PM EDT 11/24/2024 2:26 PM EDT Vero Whitaker PROJECT MANAGEMENT SPECIALIST-BEZEL CUTTER MICROBIOLOGY - GENERAL ORDERABLES Final Result [facility] [address] [place] [address], * Lactate w/ Reflex (11/24/2024 1:20 PM EDT) LACTATE W/REFLEX 1.2 0.4 - 2.0 mmol/L 11/24/2024 1:45 PM EDT [facility] Blood Venous blood / Unknown Venipuncture / Unknown 11/24/2024 1:20 PM EDT 11/24/2024 1:22 PM EDT Narrative [facility] - 11/24/2024 1:45 PM EDT Result did not trigger repeat Lactate, re-order if needed. Vero Whitaker APRN-BEZEL CUTTER LAB BLOOD ORDERABLES F inal Result [facility] [address] [place] [address], [place] * X-ray tibia fibula left minimum 2 views (11/24/2024 12:57 PM EDT) Anatomical Region Laterality Modality Lower Extremities, MSK, Lower Leg Left Computed Radiography 11/24/2024 1:06 PM EDT Narrative 11/24/2024 1:08 PM EDT Procedure: Left tibia and fibula radiographs performed. Number of views:2 views 5 images History: Pain skin wounds Impression: 1. Seen only on the lateral view is high suspicion for a nondisplaced subtle linear fracture anteriorly at the distal third of the tibia. Please correlate specifically with clinical exam. I am not given a history of trauma. Vascular calcification is present. Finalized by Zach Yusuf MD on 11/24/2024 1:08 PM Procedure Note Zach Yusuf MD - 11/24/2024 Procedure: Left tibia and fibula radiographs performed. Number of views:2 views 5 images History: Pain skin wounds Impression: 1. Seen only on the lateral view is high suspicion for a nondisplacedsubtle linear fracture anteriorly at the distal third of the tibia. Pleasecorrelate specifically with clinical exam. I am not given a history oftrauma. Vascular calcification is present. Finalized by Zach Yusuf MD on 11/24/2024 1:08 PM Vero Whitaker APRN-BEZEL CUTTER IMG DIAGNOSTIC IMAGING ORDERABLES Final Result * X-ray foot left minimum 3 views (11/24/2024 12:56 PM EDT) Anatomical Region Laterality Modality Lower Extremities, MSK, Foot Left Com puted Radiography 11/24/2024 1:09 PM EDT Narrative 11/24/2024 1:10 PM EDT Procedure: Left foot radiographs performed Number of views:3 History:Foot pain wound. Comparison:None Findings: There is no fracture, dislocation, or destructive lesion. There is extensive air in the soft tissues, especially at the top of the foot. There is diffuse soft tissue swelling. Impression: Significant abnormalities in the soft tissues. Please correlate for gas-forming infection as well as cellulitis. Finalized by Zach Yusuf MD on 11/24/2024 1:10 PM Procedure Note Zach Yusuf MD - 11/24/2024 Procedure: Left foot radiographs performed Number of views:3 History:Foot pain wound. Comparison:None Findings: There is no fracture, dislocation, or destructive lesion. Thereis extensive air in the soft tissues, especially at the top of the foot.There is diffuse soft tissue swelling. Impression: Significant abnormalities in the soft tissues. Please correlate forgas-forming infection as well as cellulitis. Finalized by Zach Yusuf MD on 11/24/2024 1:10 PM Vero Whitaker PROJECT MANAGEMENT SPECIALIST-BEZEL CUTTER IMG DIAGNOSTIC IMAGING ORDERABLES Final Result from Last [address] [facility] LIFE INSURANCE MEDICARE [facility] INSURANCE MEDICARE Advance Directives * Full Code (Latest Code Status on File) Date Activated Date Inactivated Comments 11/24/2024 9:45 PM 11/25/2024 11:29 AM * Full Code Date Activated Date Inactivated Comments 04/01/2024 4:40 PM 04/05/2024 6:01 PM Care Teams Matlab Developer Relationship Specialty Start Date End Date Maria Teresa Suresh, COY-LI [address], [place] [address] PCP - General Family Medicine 07/28/17
--- OUTSIDE RECORDS SUMMARY | 2025-01-16 07:48 | XMS_ITS | Clinical Summary ---
Author Organization [facility] Address [address] [place] [address], [address] [place] [address] Care Team Providers Care Sales And Marketing Analyst Name Role Phone Unavailable Primary Care Provider Unavailabl e Social History Tobacco Use Types Packs/Day Years Used Date Smoking Tobacco: Never Assessed Sex and Gender Information Value Date Recorded Sex Assigned at Not on file Legal Sex Male 11:42 AM EST Gender Identity Not on file Sexual Orientation Not on file Plan of Treatment Not on file
--- OUTSIDE RECORDS SUMMARY | 2025-01-16 07:49 | XMS_ITS | Encounter Summary ---
Author Organization [facility] [employer] [facility] tem Address [id number] [address] [place] [address] Care Team Providers Care Prenatal Teacher Name Role Phone Maria Teresa Suresh INDUSTRIAL X RAY OPERATOR-LOGISTICIAN Primary Care Provi tiny Encounter Details Date Type Department Care Team (Late Contact Info) Description 08/27/2020 Orders Only [facility] [address] [place] [phone] Alberto Sorenson CMA Type 2 diabetes mellitus with other specified complication, with long-term current use of insulin ([facility] Hyperlipidemia, unspecified hyperlipidemia type; Bilateral leg edema; Essential hypertension Social History Tobacco Use Types Packs/Day Years Used Date Smoking Tobacco: Former Cigarettes 2 25 Smokeless Tobacco: Never Alcohol Use Standard Drinks/Week Comments No 0 (1 standard drink = 0.6 oz pur e alcohol) PHQ-2 Answer Date Recorded Total Score 0 11/12/2019 Childcare Answer Date Recorded Childcare Unknown 11/12/2018 [...] EDT Office Visit [facility] [address] [place] [address] Adal Dhaliwal MD [address] [place] [address] documented as of this encounter Procedures Procedure Name Priority Date/Time Associated Diagnosis Comments THYROID PROFILE INCLUDES TSH FT4 Routine 08/26/2020 Type 2 diabetes mellitus with other specified complication, with long-term current use of insulin ([facility]) Hyperlipidemia, unspecified hyperlipidemia type Bilateral leg edema Essential hypertension CBC WITH AUTO DIFFERENTIAL Routine 08/26/2020 Type 2 diabetes mellitus with other specified complication, with long-term current use of insulin ([facility]) Hyperlipidemia, unspecified hyperlipidemia type Bilateral leg edema Essential hypertension HEMOGLOBIN A1C Routine 08/26/2020 Type 2 diabetes mellitus with other specified complication, with long-term current use of insulin ([facility]) Hyperlipidemia, unspecified hyperlipidemia type Bilateral leg edema Essential hypertension LIPID PROFILE Routine 08/26/2020 Type 2 diabetes mellitus with other specified complication, with long-term current use of insulin ([facility]) Hyperlipidemia, unspecified hyperlipidemia type Bilateral leg edema Essential hypertension COMPREHENSIVE METABOLIC PANEL Routine 08/26/2020 Type 2 diabetes mellitus with other specified complication, with long-term current use of insulin ([facility]) Hyperlipidemia, unspecified hyperlipidemia type Bilateral leg edema Essential hypertension documented in this encounter Results * Hemoglobin A1c (08/26/2020) External Hemoglobin A1C 7.9 % SUNQUEST 08/26/2020 Maria Teresa Suresh INDUSTRIAL X RAY OPERATOR-LOGISTICIAN LAB BLOOD ORDERABLE S Edited Result - Final SUNQUEST * Thyroid profile includes TSH FT4 (08/26/2020) TSH 0.90 0.49 - 4.67 uIU/mL SUNQUEST 08/26/2020 Maria Teresa Suresh [facility] LAB BLOOD ORDERABLE S Edited Result - Final Performing Organization Address [facility] de Phone Number BECCA * CBC auto differential (08/26/2020) External Wbc Count 8.6 4.0 - 11.0 X10E9/L SUNQUEST External Rbc Count 4.17 4.10 - 5.70 X10E12/L SUNQUEST External Hemoglobin 13.1 13.0 - 17.0 g/dL SUNQUEST External Hematocrit Hct 38.4 39 - 49 % SUNQUEST External Mcv 92 80 - 100 fL SUNQUEST External MCH 31.3 27 - 34 pg SUNQUEST External Mchc 34.0 32 - 36 g/dL SUNQUEST External Rdw 13.7 11.5 - 15.0 % SUNQUEST External Platelet Count 144 150 - 450 X10E9/L SUNQUEST External Mpv 9.7 7 - 12 fL SUNQUEST External Absolute Lymphocyte 1.6 1.0 - 3.5 X10E9/L SUNQUEST External Absolute Neutrophils 6.0 1.5 - 6.6 X10E9/L SUNQUEST External Absolute Monocytes 0.6 0 - 0.9 X10E9/L SUNQUEST External Absolute Basophil 0.1 0.0 - 0.2 X10E9/L SUNQUEST 08/26/2020 Maria Teresa Suresh [facility] S Final Result Performing Organization Address [facility] de Phone Number ANGELQUEST * Comprehensive metabolic panel (08/26/2020) External Albumin 4.3 3.2 - 5.3 g/dL SUNQUEST External Alt Sgpt 15 0 - 40 U/L SUNQUEST External Anion Gap 10 5 - 15 mmol/L SUNQUEST External Ast 18 0 - 41 U/L SUNQUEST External Blood Urea Nitrogen Bun 16 5 - 27 mg/dL SUNQUEST External Calcium Ca 9.5 8.5 - 10.5 mg/dL SUNQUEST External Chloride 106 98 - 109 mmol/L SUNQUEST External Co2 / Carbon Dioxide 27 22 - 32 mmol/L SUNQUEST External Creatinine 1.46 0.60 - 1.30 mg/dL SUNQUEST External Gfr Amer 57 >59 ml/min/1.7 3sq.m SUNQUEST External Gfr Non Amer 47 >59 ml/min/1.7 3sq.m SUNQUEST External Alkaline Phosphatase 55 39 - 130 U/L SUNQUEST External Glucose Fasting Or Random (Fbs) 117 65 - 99 mg/dL SUNQUEST External Potassium K 4.3 3.5 - 5.0 mmol/L SUNQUEST External Sodium Na 143 134 - 146 mmol/L SUNQUEST Total Bilirubin 0.8 0.3 - 1.2 mg/dL SUNQUEST External Total Protein 6.6 6.0 - 8.0 g/dL SUNQUEST 08/26/2020 Maria Teresa Suresh INDUSTRIAL X RAY OPERATORMOVL LAB BLOOD ORDERABLE S Final Result SUNQUEST * Lipid profile (08/26/2020) External Cholesterol 104 150 - 200 mg/dL SUNQUEST External Cholesterol:Hdl 2.3 1.0 - 5.0 SUNQUEST External Hdl Cholesterol 45 >39 mg/dL SUNQUEST External Ldl (Calc) 24 <130 mg/dL SUNQUEST External Triglycerides 176 27 - 150 mg/dL SUNQUEST External Very Low Lipoprotein 35 0 - 30 mg/dL SUNQUEST 08/26/2020 Maria Teresa Suresh INDUSTRIAL X RAY OPERATORMOVL LAB BLOOD ORDERABLE S Final Result SUNQUEST documented in this encounter Visit Diagnoses Diagnosis Type 2 diabetes mellitus with other specified complication, with long-term current use of insulin ([facility]) Hyperlipidemia, unspecified hyperlipidemia type Bilateral leg edema Edema Essential hypertension Unspecified essential hypertension documented in this encounter Additional Health Concerns Assessment Noted Time PHQ-9 Depression Total Score: 0 11/12/19 20 11:00 AM EDT documented as of this encounter Care Teams Prenatal Teacher Relationship Specialty Start Date End Date Maria Teresa Suresh, INDUSTRIAL X RAY OPERATOR-LOGISTICIAN [address], [place] [address] PCP - General Family Medicine 07/28/17 documented as of this encounter
--- OUTSIDE RECORDS SUMMARY | 2025-01-16 07:49 | XMS_ITS | Encounter Summary ---
Author Organization [employer] [facility] tem Address [id number] [address] [place] [address] Care Team Providers Care Element Burner Name Role Phone Maria Teresa Suresh Primary Care Provi tiny Encounter Details Date Type Department Care Team (Late st Contact Info) Description 08/27/2020 [facility]phone [facility] [address] [place] [address] [place] [address] Alberto Sorenson CMA Social History Tobacco Use Types Packs/Day [...] encounter Miscellaneous Notes * Telephone Encounter - Alberto Heath CMA - 08/27/2020 3:08 PM EDT ----- Message from JUAN Castanon sent at 08/27/2020 2:16 PM EDT ----- All labs are WNL Can discuss at next appointment. * Telephone Encounter - Alberto ROBERTO Heath - 08/27/2020 3:08 PM EDT I called [facility] and spoke to his , Cecilia, and informed her his labs were with in normal limits. She verbalized understanding. Alberto Heath CMA 08/27/20 1509 documented in this encounter Plan of Treatment Upcoming Encounters Date Type Department Care Team (Late st Contact Info) Description 02/06/2025 4:00 PM EDT Office Visit [facility] [address] [place] [phone] Adal Dhaliwal MD [address] [place], [place] [phone] documented as of this encounter Visit Diagnoses Not on filedocumented in this encounter Additional Health Concerns Assessment Noted Time PHQ-9 Depression Total Score: 0 11/12/19 20 11:00 AM EDT documented as of this encounter Care Teams Element Burner Relationship Specialty Start Date End Date Maria Teresa Suresh, SLUBBER TENDER-DELIVERY MANAGER [address], [place] [address] PCP - General Family Medicine 07/28/17 documented as of this encounter
--- OUTSIDE RECORDS SUMMARY | 2025-01-16 07:49 | XMS_ITS | Encounter Summary ---
Author Organization [employer] tem Address [id number] [address] [place] [address] Care Team Providers Care Distribution Estimator Name Role Phone Maria Teresa Suresh ECONOMIC CONSULTANT-CENTRAL LAB TECHNICIAN Primary Care Provi tiny Reason for Visit * Reason Comments Med Refill Encounter Details Date Type Department Care Team (Late Contact Info) Description 08/17/2020 Refill [facility] [address] [facility] [place] [address] [place] [address] Maria Teresa Suresh, ECONOMIC CONSULTANT-CENTRAL LAB TECHNICIAN [address] [facility] [address], [facility] [place] [address] Type 2 diabetes mellitus with complication, without long-term current use of insulin ([facility]) Social History Tobacco Use Types Packs/Day Years [...] EDT Office Visit [facility] [address] [place] [phone] Adal Dhaliwal MD [address] [place], [place] [phone] documented as of this encounter Visit Diagnoses Diagnosis Type 2 diabetes mellitus with complication, without long-term current use of insulin ([facility]) documented in this encounter Additional Health Concerns Assessment Noted Time PHQ-9 Depression Total Score: 0 11/12/19 20 11:00 AM EDT documented as of this encounter Care Teams Distribution Estimator Relationship Specialty Start Date End Date Maria Teresa Suresh, ECONOMIC CONSULTANT-CENTRAL LAB TECHNICIAN [address] [facility] [place] [address] PCP - General Family Medicine 07/28/17 documented as of this encounter
--- OUTSIDE RECORDS SUMMARY | 2025-01-16 07:49 | XMS_ITS | Encounter Summary ---
Author Organization [facility] tem Address [id number] [address] [place] [address] Care Team Providers Care Business English Instructor Name Role Phone Maria Teresa Suresh LEATHER STRETCHER-HEMMER CHAINSTITCH Primary Care Provi tiny Encounter Details Date Type Department Care Team (Late st Contact Info) Description 09/17/2020 Orders Only [facility] [address] [place] [phone] Alberto Sorenson CMA Social History Tobacco [...] have Coronavirus / COVID-19? No / Unsure 08/31/2020 10:32 AM EDT documented as of this encounter Plan of Treatment Upcoming Encounters Date Type Department Care Team (Late Contact Info) Description 02/06/2025 4:00 PM EDT Office Visit [facility] [address] [place] [address] Adal Dhaliwal MD [address] [place], [place] [phone] documented as of this encounter Visit Diagnoses Not on filedocumented in this encounter Additional Health Concerns Assessment Noted Time PHQ-9 Depression Total Score: 0 11/12/19 20 11:00 AM EDT documented as of this encounter Care Teams Business English Instructor Relationship Specialty Start Date End Date Maria Teresa Suresh, LEATHER STRETCHER-HEMMER CHAINSTITCH [address], [place] [address] PCP - General Family Medicine 07/28/17 documented as of this encounter
--- OUTSIDE RECORDS SUMMARY | 2025-01-16 07:49 | XMS_ITS | Encounter Summary ---
Author Organization [employer] tem Address [id number] [address] [place] [address] Care Team Providers Care Director Operating Name Role Phone Maria Teresa Suresh AIRPORT OPERATIONS SPECIALIST-BALL POINTS INSPECTOR Primary Care Provi tiny Reason for Visit * Reason Comments Med Refill Encounter Details Date Type Department Care Team (Late Contact Info) Description 06/13/2017 Refill [facility] [address] [place] [phone] Barbara Cameron DO [address] [facility] [place] [address] Type 2 diabetes mellitus without complication, without long-term current use of insulin ([facility]) Social History Tobacco Use Types Packs/Day Years Used Date Smoking Tobacco: Former Smokeless Tobacco: Never Alcohol Use Standard Drinks/Week Comments No 0 (1 standard drink = 0.6 oz pur e alcohol) Sex and Gender Information Value Date Recorded Sex Assigned at Not on file Legal Sex Male 1:01 PM EDT Gender Identity Not on file Sexual Orientation Not on file documented as of this encounter Miscellaneous Notes * Telephone Encounter - Barbara Cameron DO - 06/13/2017 6:51 PM EST Let patient know that he will have to make an appointment with the new provider at [facility]. Since [facility] had not seen the patient a yet I did go ahead and order his diabetic medicine until he can make his 1st appointment documented in this encounter Plan of Treatment Upcoming Encounters Date Type Department Care Team (Late st Contact Info) Description 02/06/2025 4:00 PM EDT Office Visit [facility] [address] [place] [address] Adal Dhaliwal MD [address] [place], [place] [phone] documented as of this encounter Visit Diagnoses Diagnosis Type 2 diabetes mellitus without complication, without long-term current use of insulin ([facility]) documented in this encounter Additional Health Concerns Assessment Noted Time PHQ-9 Depression Total Score: 0 01/28/20 17 3:00 PM EDT documented as of this encounter Care Teams Director Operating Relationship Specialty Start Date End Date Maria Teresa Suresh, AIRPORT OPERATIONS SPECIALIST-BALL POINTS INSPECTOR [address], [address] [place], [place] [phone] PCP - General Family Medicine 07/28/17 documented as of this encounter
--- OUTSIDE RECORDS SUMMARY | 2025-01-16 07:49 | XMS_ITS | Encounter Summary ---
Author Organization [employer] tem Address [facility]-[id number] [address] [place] [address] Care Team Providers Care Distillery Miller Name Role Phone Maria Teresa Suresh ASBESTOS ABATEMENT TECHNICIAN-SALES AUDIT CLERK Primary Care Provi tiny Reason for Visit * Reason Comments Med Refill Encounter Details Date Type Department Care Team ([facility] Contact Info) Description 12/05/2022 Refill [facility] [address] [facility] [place] [address] [place] [address] Maria Teresa Suresh, ASBESTOS ABATEMENT TECHNICIAN-SALES AUDIT CLERK [address] [facility] [address], [facility] [place] [address] Type 2 diabetes mellitus with complication, without long-term current use of insulin ([facility]); Essential hypertension Social History Tobacco Use Types [...] Upcoming Encounters Date Type Department Care Team ([facility] Contact Info) Description 02/06/2025 4:00 PM EDT Office Visit [facility] [address] [place] [phone] Adal Dhaliwal MD [address] [place] [address] documented as of this encounter Visit Diagnoses Diagnosis Type 2 diabetes mellitus with complication, without long-term current use of insulin ([facility]) Essential hypertension Unspecified essential hypertension documented in this encounter Additional Health Concerns Assessment Noted Time PHQ-9 Depression Total Score: 0 01/11/20 22 1:04 PM EDT documented as of this encounter Care Teams Distillery Miller Relationship Specialty Start Date End Date Maria Teresa Suresh, COY-SALES AUDIT CLERK [address], [place] [address] PCP - General Family Medicine 07/28/17 documented as of this encounter
--- OUTSIDE RECORDS SUMMARY | 2025-01-16 07:49 | XMS_ITS | Encounter Summary ---
Author Organization [employer] Address [facility]-[id number] [address] [place] [address] Care Team Providers Care Care Technician Name Role Phone Maria Teresa Suresh BIOLOGY LABORATORY ASSISTANT-MILKING MACHINE TECHNICIAN Primary Care Provi tiny Reason for Visit * Reason Comments Med Refill Encounter Details Date Type Department Care Team (Late st Contact Info) Description 08/20/2024 Refill [facility] [address] [place] [phone] Maria Teresa Suresh, BIOLOGY LABORATORY ASSISTANT-MILKING MACHINE TECHNICIAN [address], [place] [address] Chronic bilateral low back pain without sciatica; Thoracic spine pain Social History Tobacco Use Types Packs/Day Years Used Date Smoking Tobacco: Former Cigarettes 2 25 Smokeless Tobacco: Never Alcohol Use Standard Drinks/Week Comments No 0 (1 standard drink = 0.6 oz pur e alcohol) [facility] Utilities Answer Date Recorded In the past 12 months has [employer], gas, oil, or water [employer] threatened to shut off services in your [...] got money to buy more. Never True 07/29/2024 Within the past 12 months th e food we bought just didn't last and we didn't have money to get more. Never True 07/29/2024 Purpose - Life Answer Date Recorded Purpose and direction in life Unknown Sex and Gender Information Value Date Recorded Sex Assigned at Not on file Legal Sex Male 1:01 PM EDT Gender Identity Not on file Sexual Orientation Not on file documented as of this encounter Miscellaneous Notes * Telephone Encounter - Dayana Cunningham CMA - 08/20/2024 1:38 PM EDT Called and informed patient, Wagner stated that he wanted to discuss things over with his son beforemaking any decisions. Will call office back. documented in this encounter Plan of Treatment Upcoming Encounters Date Type Department Care Team (Late st Contact Info) Description 02/06/2025 4:00 PM EDT Office Visit [facility] [address] [place] [phone] Adal Dhaliwal MD [facility] [place] [address] documented as of this encounter Goals Goal Patient Goal Type Associated Problems Recent Progress Patient-Stated? Author Home with home health General Yes Maya Rasmussen LSW Note: Evaluation of progress towards goal: In progress: Home with [facility] . Updated goal: DC to home with his son, Dakota [facility] OFELIA Boles, 04/05/2024, 12:30 PM documented as of this encounter Visit Diagnoses Diagnosis Chronic bilateral low back pain without sciatica Thoracic spine pain Pain in thoracic spine documented in this encounter Additional Health Concerns Assessment Noted Time PHQ-9 Depression Total Score: 0 07/29/19 25 10:59 AM EST documented as of this encounter Care Teams Care Technician Relationship Specialty Start Date End Date Maria Teresa Suresh, COY-MILKING MACHINE TECHNICIAN [address], [place] [address] PCP - General Family Medicine 07/28/17 documented as of this encounter
--- OUTSIDE RECORDS SUMMARY | 2025-01-16 07:49 | XMS_ITS | Encounter Summary ---
Author Organization [facility] tem Address [facility]-[id number] [address] [place] [address] Care Team Providers Care Tube Puller Name Role Phone Maria Teresa Suresh FORESTRY CREW CHIEF-MANAGER PMO Primary Care Provi tiny Encounter Details Date Type Department Care Team (Late st Contact Info) Description 05/08/2023 Telephone [facility] [address] [place] [address] [place] [address] Doreen Ibarra CMA Social History Tobacco Use Types Packs/Day Years Used Date Smoking Tobacco: Former Cigarettes 2 25 Smokeless Tobacco: Never Alcohol Use Standard Drinks/Week Comments No 0 (1 standard drink = 0.6 oz pur e alcohol) PHQ-2 Answer Date Recorded Total Score 0 01/30/2023 Childcare Answer Date Recorded Childcare Unknown 11/12/2018 Employment Answer Date Recorded Employment Unknown 11/12/2018 Hunger Screening Answer Date Recorded Within the past 12 months we worried whether our food would run out before we got money to buy more. Never True 05/03/2023 Within the past 12 months th e food we bought just didn't last and we didn't have money to get more. Never True 05/03/2023 Purpose - Life Answer Date Recorded Purpose and direction in life Unknown Sex and Gender Information Value Date Recorded Sex Assigned at Not on file Legal Sex Male 1:01 PM EDT Gender Identity Not on file Sexual Orientation Not on file documented as of this encounter Miscellaneous Notes * Telephone Encounter - Doreen Ibarra CMA - 05/08/2023 9:28 AM EST ----- Message from JUAN Jarrett sent at 05/05/2023 6:09 PM EST ----- Chest x-ray showing emphysema. If shortness of breath worsens would like to go to ed ----- Message ----- From: Interface - Rad Results/Orders In 1 Sent: 05/05/2023 3:01 PM EST To: JUAN Jarrett * Telephone Encounter - Doreen Ibarra CMA - 05/08/2023 9:28 AM EST ----- Message from JUAN Jarrett sent at 05/06/2023 7:20 PM EST ----- EKG abnormal suggest he see cardiology. Also kidney function is decreasing, would recommend he see nephrology Will place referral only if he is in agreement ----- Message ----- From: Interface ??? Ecg Results Sent: 05/05/2023 6:29 PM EST To: JUAN Jarrett * Telephone Encounter - Doreen Ibarra CMA - 05/08/2023 9:28 AM EST Called and spoke to patients . She stated they are okay with referrals being placed and would like to move forward. She also stated understanding with directions if he experience increase of SOB. documented in this encounter Plan of Treatment Upcoming Encounters Date Type Department Care Team (Late st Contact Info) Description 02/06/2025 4:00 PM EDT Office Visit [facility] [address] [place] [phone] Adal Dhaliwal MD [address] [place] [address] documented as of this encounter Visit Diagnoses Not on filedocumented in this encounter Additional Health Concerns Assessment Noted Time PHQ-9 Depression Total Score: 0 01/31/20 10:04 AM EDT documented as of this encounter Care Teams Tube Puller Relationship Specialty Start Date End Date Maria Teresa Suresh, COY-MANAGER PMO [address], [place] [address] PCP - General Family Medicine 07/28/17 documented as of this encounter
--- OUTSIDE RECORDS SUMMARY | 2025-01-16 07:49 | XMS_ITS | Encounter Summary ---
Author Organization [facility] tem Address [facility] [place]-[id number] [address] [place] [address] Care Team Providers Care Highway Maintainer Name Role Phone Christopher Suresh LINUX NETWORK ENGINEER-CUTTER HOT KNIFE Primary Care Provi tiny Reason for Visit * Reason Onset Date Comments Transition Of Care 04/08/2024 Encounter Details Date Type Department Care Team (Late st Contact Info) Description 04/08/2024 [facility] [address] [place] [address] [place] [address] Julia Massey, suction roller Of Care Social History Tobacco Use Types Packs/Day Years Used Date Smoking Tobacco: Former Cigarettes 2 25 Smokeless Tobacco: Never Alcohol Use Standard Drinks/Week Comments No 0 (1 standard drink = 0.6 oz pur e alcohol) [facility] Utilities Answer Date Recorded In the past 12 months has e electric, gas, oil, or water company [...] got money to buy more. Never True 04/10/2024 Within the past 12 months th e food we bought just didn't last and we didn't have money to get more. Never True 04/10/2024 Purpose - Life Answer Date Recorded Purpose and direction in life Unknown Sex and Gender Information Value Date Recorded Sex Assigned at Not on file Legal Sex Male 1:01 PM EDT Gender Identity Not on file Sexual Orientation Not on file documented as of this encounter Miscellaneous Notes * Telephone Encounter - Julia Massey RN - 04/08/2024 9:06 AM EST Images from the original note were not included. Transition of Care Additional Questions/Concerns Requiring PCP Follow-Up: -Sample Worker was unable to contact the patient. -Patient does not have a hospital follow up appointment scheduled with his PCP at this time. This documentation is being used for Transition of Care purposes: Yes Goal: Patient will demonstrate a safe transition from hospital to home. Diagnosis on Discharge: Open wound of left lower extremity Discharge Specialty: Infectious Disease Name of Discharging Facility: [facility] Date of Facility Discharge: 04.01.24-04.05.24 Date of Interactive Contact and Name of Awning Hanger Supervisor: 04.08.24 0906 No answer. 04.08.24 1530 No answer. Medication Review Completed: No Follow Up Appointments with Providers: Primary: CHRISTOPHER SURESH APRN-LI TBCait Specialty: Wound Care 04.10.24 920 am Specialty: Nephrology 04.17.24 11 am Review of Pending Lab/Diagnostic Tests and Plan for Completion: -BMP is expected to be completed every Monday and Monday for 2 weeks. Assessment and Support of Treatment Regimen Adherence and Medication Management: Education Provided by [facility] to Support Self-Management, Independent Living and ADLs: Communication with Home Health Agencies and Other Services Utilized/Needed by the Patient: -SN, PT, OT and OFFICE MANAGER EXECUTIVE ASSISTANT services are to be provided by [facility]. Sample Worker spoke with Karolina bhatia [facility] who reports that a start of care was on 04.07.24. documented in this encounter Plan of Treatment Upcoming Encounters Date Type Department Care Team (Late st Contact Info) Description 02/06/2025 4:00 PM EDT Office Visit [facility] [address] [place] [phone] Adal Dhaliwal MD [address] [place], [place] [phone] documented as of this encounter Goals Goal Patient Goal Type Associated Problems Recent Progress Patient-Stated? Author Home with home health General Yes Maya Rasmussen LSW Note: Evaluation of progress towards goal: In progress: Home with [facility] . Updated goal: DC to home with his son, Dakota and [facility]. OFELIA Boles, 04/05/2024, 12:30 PM documented as of this encounter Visit Diagnoses Not on filedocumented in this encounter Additional Health Concerns Assessment Noted Time PHQ-9 Depression Total Score: 2 02/07/20 24 2:00 PM EDT documented as of this encounter Care Teams Highway Maintainer Relationship Specialty Start Date End Date Christopher Suresh, COY-CUTTER HOT KNIFE [address], [place] [address] PCP - General Family Medicine 07/28/17 documented as of this encounter
--- OUTSIDE RECORDS SUMMARY | 2025-01-16 07:49 | XMS_ITS | Encounter Summary ---
Author Organization [facility] tem Address [id number] [address] [place] [address] Care Team Providers Care Shank Pinner Name Role Phone Maria Teresa Suresh SAS ETL DEVELOPER-SPIRAL SPRING WINDER Primary Care Provi tiny Encounter Details Date Type Department Care Team (Late st Contact Info) Description 05/04/2023 Orders Only [facility] [address] [place] [address] [place] [address] Kaylynn Howell CMA Type 2 diabetes mellitus with complication, without long-term current use of insulin ([facility]); Primary hypertension; Hyperlipidemia, unspecified hyperlipidemia type; Screening PSA (prostate specific antigen); Vitamin B 12 deficiency Social History Tobacco Use Types Packs/Day Years [...] Office Visit [facility] [address] [place] [address] Adal Dhaliwal MD [address] [place] [address] documented as of this encounter Procedures Procedure Name Priority Date/Time Associated Diagnosis Comments THYROID PROFILE INCLUDES TSH FT4 Routine 04/26/2023 Type 2 diabetes mellitus with complication, without long-term current use of insulin ([facility]) Primary hypertension CBC WITH AUTO DIFFERENTIAL Routine 04/26/2023 Type 2 diabetes mellitus with complication, without long-term current use of insulin ([facility]) Primary hypertension PROSTATIC SPECIFIC ANTIGEN SCREEN Routine 04/26/2023 Type 2 diabetes mellitus with complication, without long-term current use of insulin ([facility]) Primary hypertension Screening PSA (prostate specific antigen) VITAMIN B12 Routine 04/26/2023 Type 2 diabetes mellitus with complication, without long-term current use of insulin ([facility]) Primary hypertension Vitamin B 12 deficiency LIPID PROFILE Routine 04/26/2023 Type 2 diabetes mellitus with complication, without long-term current use of insulin ([facility]) Primary hypertension Hyperlipidemia, unspecified hyperlipidemia type COMPREHENSIVE METABOLIC PANEL Routine 04/26/2023 Type 2 diabetes mellitus with complication, without long-term current use of insulin ([facility]) Primary hypertension documented in this encounter Results * Vitamin B12 (04/26/2023) Vitamin B-12 800 [facility] Blood 04/26/2023 Maria Teresa Suresh SAS ETL [facility] LAB BLOOD ORDERABLE S Final Result Performing Organization Address [facility] de Phone Number SUNQUEST * Thyroid profile includes TSH FT4 (04/26/2023) TSH 1.320 [facility] T4, free 1.49 [facility] Blood 04/26/2023 Maria Teresa Garcialer [facility] LAB BLOOD ORDERABLE S Final Result Performing Organization Address [facility] de Phone Number SUNQUEST * Prostatic specific antigen screen (04/26/2023) Psa 1.92 [facility] Blood 04/26/2023 Maria Teresa Garcialer [facility] LAB BLOOD ORDERABLE S Final Result Performing Organization Address [facility] de Phone Number SUNQUEST * CBC auto differential (04/26/2023) External Wbc Count 9.3 [facility] External Rbc Count 4.19 [facility] External Hemoglobin 12.7 [facility] External Hematocrit Hct 38.5 [facility] External Mcv 91.9 [facility] External MCH 30.3 [facility] External Mchc 33 [facility]QUEST External Rdw 12.7 [facility] External Platelet Count 157 [facility] External Mpv 12.7 [facility] External Seg Neutrophil 67 [facility] External Lymphocyte, Atypical 22.1 [facility] External Absolute Lymphocyte 2.06 [facility] External Monocytes 7.7 [facility] External % Basophils 1.19 [facility] External Absolute Neutrophils 6.23 [facility] External Absolute Lymphocyte 2.06 [facility] External Absolute Monocytes 0.72 [facility] External Absolute Basophil 0.09 [facility] 04/26/2023 Maria Teresa Garcialer [facility] LAB BLOOD ORDERABLE S Final Result Performing Organization Address [facility] de Phone Number SUNQUEST * Lipid profile (04/26/2023) External Cholesterol 115 [facility] External Cholesterol:Hdl 2.2 [facility] External Hdl Cholesterol 52 [facility] External Ldl (Calc) 32 [facility] External Triglycerides 155 [facility] Blood 04/26/2023 Maria Tersea Suresh [facility] LAB BLOOD ORDERABLE S Final Result Performing Organization Address [facility] de Phone Number SUNQUEST * Comprehensive metabolic panel (04/26/2023) External Albumin 4.9 [facility] External Alt Sgpt 9 [facility] External Anion Gap 11 [facility] External Ast 20 [facility] External Blood Urea Nitrogen Bun 18 [facility] External Calcium Ca 9.6 [facility] External Chloride 103 [facility] External Co2 / Carbon Dioxide 27 [facility] External Creatinine 1.29 [facility] External Gfr Non Amer 47 [facility] External Alkaline Phosphatase 63 [facility] External Glucose Fasting Or Random (Fbs) 179 [facility] External Potassium K 4.6 [facility] External Sodium Na 141 [facility] Total Bilirubin 0.7 [facility] External Total Protein 6.5 [facility] Blood 04/26/2023 Maria Teresa Suresh SAS ETL DEVELOPERP[facility] LAB BLOOD ORDERABLE S Final Result Performing Organization Address [facility] de Phone Number SUNQUEST documented in this encounter Visit Diagnoses Diagnosis Type 2 diabetes mellitus with complication, without long-term current use of insulin ([facility]) Primary hypertension Unspecified essential hypertension Hyperlipidemia, unspecified hyperlipidemia type Screening PSA (prostate specific antigen) Special screening for malignant neoplasm of prostate Vitamin B 12 deficiency Other B-complex deficiencies documented in this encounter Additional Health Concerns Assessment Noted Time PHQ-9 Depression Total Score: 0 01/31/20 23 10:04 AM EDT documented as of this encounter Care Teams Shank Pinner Relationship Specialty Start Date End Date Maria Teresa Suresh APRN-CNP [address], [place] [address] PCP - General Family Medicine 07/28/17 documented as of this encounter
--- OUTSIDE RECORDS SUMMARY | 2025-01-16 07:49 | XMS_ITS | Encounter Summary ---
Author Organization [employer] tem Address [id number] [address] [place] [address] Care Team Providers Care Development Mechanic Name Role Phone Maria Teresa Suresh GRADES 1 THROUGH 5 TEACHER-CUFF SETTER OVERLOCK Primary Care Provi tiny Reason for Visit * Reason Onset Date Comments Med Refill 09/22/2020 Encounter Details Date Type Department Care Team (Late Contact Info) Description 09/22/2020 Refill [facility] [address] [place] [address] [place] [address] Alberto Sorenson CMA Social History [...] EDT Office Visit [facility] [address] [place] [phone] Adal Dhaliwal MD [address] [place], [place] [phone] documented as of this encounter Visit Diagnoses Not on filedocumented in this encounter Additional Health Concerns Assessment Noted Time PHQ-9 Depression Total Score: 0 11/12/19 20 11:00 AM EDT documented as of this encounter Care Teams Development Mechanic Relationship Specialty Start Date End Date Maria Teresa Suresh, GRADES 1 THROUGH 5 TEACHER-CUFF SETTER OVERLOCK [address], [place] [address] PCP - General Family Medicine 07/28/17 documented as of this encounter
--- OUTSIDE RECORDS SUMMARY | 2025-01-16 07:49 | XMS_ITS | Encounter Summary ---
Author Organization [employer] tem Address [facility]-[id number] [address] [place] [address] Care Team Providers Care Lens Finisher Name Role Phone Maria Teresa Suresh CRITICAL CARE UNIT MANAGER-REAL ESTATE CLERK Primary Care Provi tiny Reason for Visit * Reason Comments Med Refill Encounter Details Date Type Department Care Team ([facility] Contact Info) Description 06/10/2021 Refill [facility] [address] [place] [address] Maria Tersea Suresh, CRITICAL CARE UNIT MANAGER-REAL ESTATE CLERK [address] [facility] [address], [facility] [place] [address] Type 2 diabetes mellitus with complication, without long-term current use of insulin ([facility]); Essential hypertension Social History Tobacco Use Types Packs/Day Years Used Date Smoking Tobacco: Former Cigarettes 2 25 Smokeless Tobacco: Never Alcohol Use Standard Drinks/Week Comments No 0 (1 standard drink = 0.6 oz pur e alcohol) PHQ-2 Answer Date Recorded Total Score 0 03/22/2021 Childcare Answer Date Recorded Childcare Unknown 11/12/2018 [...] Upcoming Encounters Date Type Department Care Team ([facility] Contact Info) Description 02/06/2025 4:00 PM EDT Office Visit [facility] [address] [place] [address] Adal Dhaliwal MD [address] [place] [address] documented as of this encounter Visit Diagnoses Diagnosis Type 2 diabetes mellitus with complication, without long-term current use of insulin ([facility]) Essential hypertension Unspecified essential hypertension documented in this encounter Additional Health Concerns Assessment Noted Time PHQ-9 Depression Total Score: 0 03/22/20 21 1:03 PM EDT documented as of this encounter Care Teams Lens Finisher Relationship Specialty Start Date End Date Maria Teresa Suresh, COY-REAL ESTATE CLERK [address], [place] [address] PCP - General Family Medicine 07/28/17 documented as of this encounter
--- OUTSIDE RECORDS SUMMARY | 2025-01-16 07:49 | XMS_ITS | Encounter Summary ---
Author Organization [employer] tem Address [facility]-[id number] [address] [place] [address] Care Team Providers Care Md Physician Dermatologist Name Role Phone Maria Teresa Suresh TAMPING MACHINE OPERATOR ROAD FORMS-BUTTON TUFTER Primary Care Provi tiny Encounter Details Date Type Department Care Team (Late st Contact Info) Description 05/09/2023 Telephone [facility] [address] [place] [phone] Neftali Arias MD [address] [place] [address] Social History Tobacco Use Types Packs/Day Years [...] encounter Miscellaneous Notes * Telephone Encounter - Monica Jani - 05/09/2023 7:58 AM EST This is notification that we have received a referral for the patient. Please reach out to schedulenew patient appointment in your office. Please check the referral tab in appt desk for details and to make sure to assign referral or schedule off of it. Thank you. * Telephone Encounter - Areli Potter MA - 05/09/2023 7:58 AM EST Pt has appt scheduled 06/23/2023 in [facility] w/[facility]. JLW documented in this encounter Plan of Treatment Upcoming Encounters Date Type Department Care Team (Late st Contact Info) Description 02/06/2025 4:00 PM EDT Office Visit [facility] [address] [place] [address] Adal Dhaliwal MD [address] [place], [place] [phone] documented as of this encounter Visit Diagnoses Not on filedocumented in this encounter Additional Health Concerns Assessment Noted Time PHQ-9 Depression Total Score: 0 01/31/20 10:04 AM EDT documented as of this encounter Care Teams Md Physician Dermatologist Relationship Specialty Start Date End Date Maria Teresa Suresh, TAMPING MACHINE OPERATOR ROAD FORMS-BUTTON TUFTER [address], [place] [address] PCP - General Family Medicine 07/28/17 documented as of this encounter
--- OUTSIDE RECORDS SUMMARY | 2025-01-16 07:49 | XMS_ITS | Encounter Summary ---
Author Organization [employer] Address [id number] [address] [place] [address] Care Team Providers Care Slab Inspector Name Role Phone Maria Teresa Suresh BARREL FILLER HEAD-PUBLIC WORKS DIRECTOR Primary Care Provi tiny Encounter Details Date Type Department Care Team (Late st Contact Info) Description 06/11/2024 [facility] [address] [place] [address] [address] Doreen Ibarra CMA Social History Tobacco Use Types Packs/Day Years Used Date Smoking Tobacco: Former Cigarettes 2 25 Smokeless Tobacco: Never Alcohol Use Standard Drinks/Week Comments No 0 (1 standard drink = 0.6 oz pur e alcohol) [facility] Utilities Answer Date Recorded In the [...] Telephone Encounter - Doreen Ibarra CMA - 06/11/2024 2:26 PM EST Patients son called stating he spoke to compound pharmacy today and after them explaining patient can not put cream in or on the wound patients son told them to hold off on it til he spoke to PCP because he doesn't feel the cream will help his father if it can't go on the wound and that is where patients pain is coming from. States patient still does not elevate leg as much as he should be Please advise? * Telephone Encounter - JUAN Jarrett - 06/11/2024 2:26 PM EST Son had called in for his fathers back pain, which is why we decided to go to compound pharmacy. There is a note in encounters that they spoke with you and Dayana. Please let son know the compounding medicine was for the back * Telephone Encounter - Doreen Ibarra CMA - 06/11/2024 2:26 PM EST Okay I will call and inform son. Patient needs something for pain due to wound. Please advise? * Telephone Encounter - JUAN Jarrett - 06/11/2024 2:26 PM EST I will send something in for pain, he is to use sparingly as needed * Telephone Encounter - Doreen Ibarra CMA - 06/11/2024 2:26 PM EST Called patients son but did not answer so I left a voicemail. documented in this encounter Plan of Treatment Upcoming Encounters Date Type Department Care Team (Late st Contact Info) Description 02/06/2025 4:00 PM EDT Office Visit [facility] [address] [place] [phone] Adal Dhaliwal MD [address] [place], [place] [phone] documented as of this encounter Goals Goal Patient Goal Type Associated Problems Recent Progress Patient-Stated? Author Home with home health General Yes Maya Rasmussen LSW Note: Evaluation of progress towards goal: In progress: Home with [facility] . Updated goal: DC to home with his son, Dakota and [facility]. OFELIA Boles, 04/05/2024, 12:30 PM documented as of this encounter Visit Diagnoses Not on filedocumented in this encounter Additional Health Concerns Assessment Noted Time PHQ-9 Depression Total Score: 2 02/07/20 24 2:00 PM EDT documented as of this encounter Care Teams Slab Inspector Relationship Specialty Start Date End Date Maria Teresa Suresh APRN-CNP [address], [place] [address] PCP - General Family Medicine 07/28/17 documented as of this encounter
--- OUTSIDE RECORDS SUMMARY | 2025-01-16 07:49 | XMS_ITS | Encounter Summary ---
Author Organization [employer] Address [id number] [address] [place] [address] Care Team Providers Care Choir Member Name Role Phone Maria Teresa Suresh OCCUPATIONAL PHYSICIAN-AUTOMATIC DRY STARCH OPERATOR Primary Care Provi tiny Encounter Details Date Type Department Care Team (Late st Contact Info) Description [facility] [address] [place] [address] [address] [place] [address] Doreen Ibarra CMA Social History Tobacco Use Types Packs/Day Years Used Date Smoking Tobacco: Former Cigarettes 2 25 Smokeless Tobacco: Never Alcohol Use Standard Drinks/Week Comments No 0 (1 standard drink = 0.6 oz pur e alcohol) [facility] Utilities Answer Date Recorded In the [...] got money to buy more. Never True 05/06/2024 Within the past 12 months th e food we bought just didn't last and we didn't have money to get more. Never True 05/06/2024 Purpose - Life Answer Date Recorded Purpose and direction in life Unknown Sex and Gender Information Value Date Recorded Sex Assigned at Not on file Legal Sex Male 1:01 PM EDT Gender Identity Not on file Sexual Orientation Not on file documented as of this encounter Miscellaneous Notes * Telephone Encounter - Doreen Ibarra CMA - 05/20/2024 11:43 AM EST Patients son called stating he would like to know if PCP can send in rx for some lidocain jell for father. Please advise? * Telephone Encounter - JUAN Jarrett - 05/20/2024 11:43 AM EST I believe I sent a response to Dayana regarding this, can you ask her to check * Telephone Encounter - Dayana Cunningham CMA - 05/20/2024 11:43 AM EST [place], patient's son would like to try a cream from the compound pharmacy. Please advise? documented in this encounter Plan of Treatment Upcoming Encounters Date Type Department Care Team (Late st Contact Info) Description 02/06/2025 4:00 PM EDT Office Visit [facility] [address] [place] [address] Adal Dhaliwal MD [address] [place] [address] documented as of this encounter Goals Goal Patient Goal Type Associated Problems Recent Progress Patient-Stated? Author Home with home health General Yes Maya Rasmussen, OFELIA Note: Evaluation of progress towards goal: In progress: Home with [facility] . Updated goal: DC to home with his son, Dakota and [facility]. OFELIA Boles, 04/05/2024, 12:30 PM documented as of this encounter Visit Diagnoses Not on filedocumented in this encounter Additional Health Concerns Assessment Noted Time PHQ-9 Depression Total Score: 2 02/07/20 24 2:00 PM EDT documented as of this encounter Care Teams Choir Member Relationship Specialty Start Date End Date Maria Teresa Suresh, OCCUPATIONAL PHYSICIAN-AUTOMATIC DRY STARCH OPERATOR [address], [place] [address] PCP - General Family Medicine 07/28/17 documented as of this encounter
--- OUTSIDE RECORDS SUMMARY | 2025-01-16 07:49 | XMS_ITS | Encounter Summary ---
Author Organization [employer] [facility] [employer] Address [facility] [id number] [address] [place] [address] Care Team Providers Care Linseed Cake Trimmer Name Role Phone Maria Teresa Suresh ENVELOPE FOLDER-ALTERNATIVE FINANCING SPECIALIST Primary Care Provi tiny Reason for Visit * Reason Comments Med Refill Encounter Details Date Type Department Care Team (Late st Contact Info) Description 07/01/2024 Refill [facility] [address] [place] [address] [place] [address] Maria Teresa Suresh, ENVELOPE FOLDER-ALTERNATIVE FINANCING SPECIALIST [address] [facility], [facility] [place] [address] 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 Never True 06/21/2024 Within the past 12 months th e food we bought just didn't last and we didn't have money to get more. Never True 06/21/2024 Purpose - Life Answer Date Recorded Purpose [...] EDT Office Visit [facility] [address] [place] [address] Adal Dhaliwal MD [address] [place] [address] documented as of this encounter Goals Goal Patient Goal Type Associated Problems Recent Progress Patient-Stated? Author Home with [facility] General Yes Maya Rasmussen LSW Note: Evaluation of progress towards goal: In progress: [facility] with [facility] . Updated goal: DC to home with his son, Dakota and [facility]. 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
--- OUTSIDE RECORDS SUMMARY | 2025-01-16 07:49 | XMS_ITS | Clinical Summary ---
Author Organization [facility] Address [address] [place] [address] Care Team Providers Care Commercial Real Estate Appraiser Name Role Phone Maria Teresa Suresh MD Unavailable [phone] Medications aspirin 81 MG EC tablet 1 tablet DAILY (route: oral) 04/07/2024 Active bumetanide (Bumex) 1 MG tablet 3 tablet EVERY OTHER DAY (route: oral) 04/07/2024 Active coenzyme Q-10 75 MG capsule 1 capsule DAILY (route: oral) 04/07/2024 Active Ferrous Fumarate 324 (106 Fe) MG tablet 1 tablet DAILY (route: oral) 04/07/2024 Active glipiZIDE (Glucotrol) 5 MG tablet 1 tablet DAILY (route: oral) 04/07/2024 Active SITagliptin (Januvia) 100 MG tablet 1 tablet DAILY (route: oral) 04/07/2024 Active empagliflozin (Jardiance) 10 MG 1 tablet DAILY (route: oral) 04/07/2024 Active Insulin Glargine (LANTUS SOLOSTAR SC) 10 unit DAILY (route: subcutaneous ) 04/07/2024 Active metoprolol tartrate (Lopressor) 12.5 mg split tablet 1 tablet 2 TIMES DAILY (route: oral) 04/07/2024 Active Multiple Vitamins-Minera ls (ONE A DAY MEN 50 PLUS PO) Take 1 capsule by mouth in the morning. Active Omeprazole 20 MG tablet delayed-release 1 capsule DAILY (route: oral) 04/07/2024 Active potassium chloride CR (Klor-Con) 10 MEQ ER tablet 1 tablet EVERY OTHER DAY (route: oral) 04/07/2024 Active rosuvastatin (Crestor) 20 MG tablet 1 tablet DAILY (route: oral) 04/07/2024 Active Social History Tobacco Use Types Packs/Day Years Used Date Smoking Tobacco: Former Cigarettes Tobacco Cessation:Counseling Given: Not Answered Alcohol Use Standard Drinks/Week Comments Not Currently 0 (1 standard drink = 0.6 oz pur e alcohol) Sex and Gender Information Value Date Recorded Sex Assigned at Not on file Legal Sex Male 12:31 PM EST Gender Identity Not on file Sexual Orientation Not on file Last Filed Vital Signs Vital Sign Reading Time Taken Comments Blood Pressure - - Pulse - - Temperature - - Respiratory Rate - - Oxygen Saturation - - Inhaled Oxygen Concentration - - Weight 72.1 kg (159 lb) 06/03/2024 2:44 PM EST Height 182.9 cm (6') 06/03/2024 2:44 PM EST Body Mass Index 21.56 06/03/2024 2:44 PM EST Plan of Treatment Health Maintenance Due Date Last Done Comments Influenza Vaccine (#1) 2025 , 04/10/2023, 04/11/2022, Additional history exists Pneumococcal Vaccine: 65+ Years Completed 02/07/2024, 04/16/2015, 04/16/2015, Additional history exists Insurance [employer] Care Teams Commercial Real Estate Appraiser Relationship Specialty Start Date End Date Maria Teresa Suresh MD [address] [place] [id number] Referring Physician Nurse Practitioner 04/15/24
--- OUTSIDE RECORDS SUMMARY | 2025-01-16 07:49 | XMS_ITS | Encounter Summary ---
Author Organization [employer] Address [facility] [id number] [address] [place] [address] Care Team Providers Care Dining Car Conductor Name Role Phone Maria Teresa Suresh CANINE DEPUTY-VACCINE SPECIALIST Primary Care Provi tiny Reason for Visit * Reason Comments Med Refill Encounter Details Date Type Department Care Team (Late st Contact Info) Description 07/30/2024 Refill [facility] [address] [place] [address] [place] [phone] Maria Teresa Suresh, CANINE DEPUTY-VACCINE SPECIALIST [address] [facility] [place] [address] Stage 3a chronic kidney disease (CMS-HCC); Bilateral leg edema Social History Tobacco Use Types Packs/Day Years Used Date Smoking Tobacco: Former Cigarettes 2 25 Smokeless Tobacco: Never Alcohol Use Standard Drinks/Week Comments No 0 (1 standard drink = 0.6 oz pur e alcohol) [facility] Utilities Answer Date Recorded In the past 12 months has [employer], gas, oil, or water [employer] threatened to shut off services in your [...] encounter Miscellaneous Notes * Telephone Encounter - JUAN Jarrett - 07/30/2024 9:36 AM EST Please done, ordered yesterday documented in this encounter Plan of Treatment Upcoming Encounters Date Type Department Care Team (Late st Contact Info) Description 02/06/2025 4:00 PM EDT Office Visit [facility] [address] [phone] Adal Dhaliwal MD [address] [place] [address] documented as of this encounter Goals Goal Patient Goal Type Associated Problems Recent Progress Patient-Stated? Author Home with [facility] General Yes Maya Rasmussen LSW Note: Evaluation of progress towards goal: In progress: Home with [facility] . Updated goal: DC to home with his son, Dakota and [facility]. OFELIA Boles, 04/05/2024, 12:30 PM documented as of this encounter Visit Diagnoses Diagnosis Stage 3a chronic kidney disease (CMS-HCC) Bilateral leg edema Edema documented in this encounter Additional Health Concerns Assessment Noted Time PHQ-9 Depression Total Score: 0 07/29/19 25 10:59 AM EST documented as of this encounter Care Teams Dining Car Conductor Relationship Specialty Start Date End Date Maria Teresa Suresh APRN-VACCINE SPECIALIST [address], [place] [address] PCP - General Family Medicine 07/28/17 documented as of this encounter
--- OUTSIDE RECORDS SUMMARY | 2025-01-16 07:49 | XMS_ITS | Encounter Summary ---
Author Organization [employer] Address [facility] [id number] [address] [place] [address] Care Team Providers Care Pre Sales Network Engineer Name Role Phone Maria Teresa Suresh Nino CONSUMER LENDER-OBSTETRICS NURSE PRACTITIONER Primary Care Provi tiny Reason for Visit * Reason Comments Med Refill Encounter Details Date Type Department Care Team ([facility] Contact Info) Description 10/27/2016 Refill [facility] [address] [place] [address] Gayle Gordon MD [facility] [place] [address] Social History Tobacco Use Types Packs/Day Years Used Date Smoking Tobacco: Former Sex and Gender Information Value Date Recorded Sex Assigned at Not on file Legal Sex Male 1:01 PM EDT Gender Identity Not on file Sexual Orientation Not on file documented as of this encounter Miscellaneous Notes * Telephone Encounter - Gayle Gordon MD - 11/18/2016 4:53 PM EDT Phoned in. documented in this encounter Plan of Treatment Upcoming Encounters Date Type Department Care Team ([facility] Contact Info) Description 02/06/2025 4:00 PM EDT Office Visit [facility] [address] [place] [phone] Adal Dhaliwal MD [address] [place] [address] documented as of this encounter Visit Diagnoses Not on filedocumented in this encounter Care Teams Pre Sales Network Engineer Relationship Specialty Start Date End Date Maria Teresa Suresh APRN-OBSTETRICS NURSE PRACTITIONER [address], [place] [address] PCP - General Family Medicine 07/28/17 documented as of this encounter
--- OUTSIDE RECORDS SUMMARY | 2025-01-16 07:49 | XMS_ITS | Encounter Summary ---
Author Organization [facility] Address [facility] [id number] [address] [place] [address] Care Team Providers Care Tool Technician Name Role Phone Maria Teresa Suresh YARD SPOTTER-SHIP JOINER Primary Care Provi tiny Encounter Details Date Type Department Care Team (Late st Contact Info) Description 09/10/2020 [facility] [address] [place] [address] [place] [address] Alberto Sorenson CMA Social History [...] AM EDT documented as of this encounter Miscellaneous Notes * Telephone Encounter - Alberto Heath CMA - 09/10/2020 3:28 PM EDT Cecilia called and wanted to know why [facility] prescriptions are not for 90 days and 30. She said they don't want to make the extra trip into town and they don't want to pay the extra money each time to pick them up. * Telephone Encounter - JUAN Jarrett - 09/10/2020 3:28 PM EDT They can ask pharmacy to change them and it wont be an issue * Telephone Encounter - Alberto Heath CMA - 09/10/2020 3:28 PM EDT I called Cecilia back and got a busy signal. documented in this encounter Plan of Treatment Upcoming Encounters Date Type Department Care Team (Late st Contact Info) Description 02/06/2025 4:00 PM EDT Office Visit [facility] [address] [place] [phone] Adal Dhaliwal MD [address] [place] [address] documented as of this encounter Visit Diagnoses Not on filedocumented in this encounter Additional Health Concerns Assessment Noted Time PHQ-9 Depression Total Score: 0 11/12/19 20 11:00 AM EDT documented as of this encounter Care Teams Tool Technician Relationship Specialty Start Date End Date Maria Teresa Suresh APRN-CNP [address], [place] [address] PCP - General Family Medicine 07/28/17 documented as of this encounter
[2025-01-16] MEDS: METHYLPREDNISOLONE SOD SUCC PF 125 MG/2 ML VIAL IVP (07:57)
[2025-01-16] MEDS: ALBUTEROL SULFATE 2.5 MG/3 ML VIAL NEB IH (08:00)
[2025-01-16 08:12] LABS: Hematocrit 27.3 % (42.0-54.0); Hemoglobin 7.8 g/dL (14.0-18.0); Mean Corpuscular HGB Conc 28.6 g/dL (29.9-35.2); Mean Corpuscular Hemoglobin 24.4 pg (25.9-34.0); Mean Corpuscular Volume 85.3 fL (80.0-94.0); Platelet Count 158 10^3/uL (150-450); Red Blood Count 3.20 10^6/uL (4.70-6.10); White Blood Count 10.5 10^3/uL (4.0-11.0)
[2025-01-16 08:13] LABS: Allen Test POSITIVE (POSITIVE); HCO3 ABG 29.5 mmol/L (22.0-26.0); Oxygen Saturation ABG 99.5 %; PO2 ABG 150.0 mmHg (80.0-100.0)
[2025-01-16 08:14] LABS: BIPAP Pressure 18/8; O2 Mode BIPAP; Puncture Site R RAD; Rate 16
[2025-01-16 08:15] LABS: ABG PCO2 69.4 mmHg (35.0-45.0)
[2025-01-16 08:35] LABS: Anion Gap 9.2; Band Neutrophils Absolute 0.2 10^3/uL (0.0-0.3); Basophils Abs Manual 0.00 10^3/uL (0.00-0.10); Basophils Percent Manual 0.0 % (0.2-2.0); Blood Urea Nitrogen 33.0 mg/dL (7.0-18.0); Calcium 8.8 mg/dL (8.5-10.1); Carbon Dioxide 32.9 mmol/L (21.0-32.0); Chloride 107 mmol/L (98-107); Eosinophils Absolute Manual 0.00 10^3/uL (0.00-0.70); Eosinophils Percent Manual 0.0 % (0.9-7.0); Estimated GFR (African America >60 (>=60 mL/min/1.73m^2); Estimated GFR (Non-African Ame 52 (>=60 mL/min/1.73m^2); Glucose 247 mg/dL (74-106); Lactate/Lactic Acid 0.9 mmol/L (0.4-2.0); Lymphocytes Absolute Manual 0.73 10^3/uL (1.20-3.80); Lymphocytes Percent Manual 7.0 % (20.5-60.0); Metamyelocytes Absolute Manual 0.10; Monocytes Absolute Manual 0.31 10^3/uL (0.30-0.80); Monocytes Percent Manual 3.0 % (1.7-12.0); Potassium 4.1 mmol/L (3.5-5.1); Segmented Neut Absolute Manual 9.13 10^3/uL (1.4-6.5); Segmented Neutrophils % Manual 87.0 (43.0-75.0); Sodium 145 mmol/L (136-145)
[2025-01-16 08:37] LABS: Anisocytosis 1+
[2025-01-16 08:42] LABS: SARS-CoV-2 Ag NEGATIVE (NEGATIVE)
[2025-01-16] MEDS: FUROSEMIDE 40 MG/4 ML VIAL IVP ×3 (08:52→22:59)
[2025-01-16 09:24] LABS: HCO3 ABG 28.4 mmol/L (22.0-26.0); PO2 ABG 79.1 mmHg (80.0-100.0)
[2025-01-16 09:25] LABS: Allen Test POSITIVE (POSITIVE); BIPAP Pressure 18/8; O2 Mode BIPAP; Oxygen Saturation ABG 95.0 %; Puncture Site RR; Rate 16
[2025-01-16 09:26] LABS: ABG PCO2 62.8 mmHg (35.0-45.0)
--- NOTE | 2025-01-16 10:55 | CT_ITS ---
The [address] [address] Patient Name: HOLLY AGUIAR MRN: [id number] date: 1940 Sex: M Assigned Patient Location: ED.MAIN Current Patient Location: Accession/Order Number: [id number] Exam Date: 01/16/2025 12:15 Report Date: 01/16/2025 12:23 At the request of: ADA RAJPUT MD Procedure: CT angio chest CT for pulmonary embolism CLINICAL HISTORY: Shortness of breath, rule out PE COMPARISON: None TECHNIQUE: CT chest to evaluate for pulmonary embolism. 3-D reconstructions were created.. This CT exam was performed using one or more following dose reduction techniques: Automated exposure control, adjustment of the mA and/or kV according to patient size, or use of iterative reconstruction technique. FINDINGS: Suboptimal contrast bolus timing. No large saddle embolism. Cardiomegaly. Postsurgical changes identified from prior thoracotomy. No suspicious mediastinal or hilar adenopathy. Moderate aortic plaque. Aorta/aneurysm. Retroesophageal course right subclavian artery. Moderate right-sided and small left-sided effusions. Bibasilar atelectasis. Pleural-parenchymal opacity right lower lobe may represent areas of airspace disease. No pneumothorax. Multilevel changes of the thoracic spine. CT/CT angio chest IMPRESSION: Suboptimal contrast bolus. No large saddle embolism. Consider repeat examination or consider VQ scan as warranted. Moderate right-sided and small left-sided effusion. Bibasilar airspace disease/atelectasis. Impression dictated by: Tavo Colon M.D. 01/16/2025 12:23 PM Dictation Location: [facility] Electronically authenticated by: [id number] Y Date: 01/16/2025 12:23
--- NOTE | 2025-01-16 10:55 | ED.GENADUL1 ---
HPI HPI - General Adult General Chief complaint: Shortness of Breath/Dyspnea Stated complaint: SOB Time Seen by Provider: 01/16/25 07:42 Source: patient Mode of arrival: ambulance Limitations: no limitations History of Present Illness HPI narrative: 84-year-old male presented from [facility] for difficulty breathing. This apparently started today. The patient is unable to provide any history. History is obtained from paramedics and from staff at the [facility]. Later family also came and reports that he had left leg amputation about 2 months ago in [place], at [facility]. He went to rehab facility and has been there since then. They report that he has low quality of life. He had an appointment in [place] and was able to ride in the car there yesterday. He is not able to walk and gets around everywhere with the wheelchair and cannot self transfer. Paramedics did not report any load O2 saturations but noted that he had work of breathing increased. No further history is obtainable. Related Data Home Medications ?Medication ?Instructions ?Recorded ?Confirmed arginine 7 gram-glutam 7 1 packet PO BID 01/16/25 01/16/25 gram-CaHMB 1.5 [id number]-[id number]-min oral pwd pkt (Galen (with collagen)) docusate sodium 100 mg capsule 100 mg PO BID 01/16/25 01/16/25 (Colace) enoxaparin 40 mg/0.4 mL 40 mg subcut DAILY 01/16/25 01/16/25 subcutaneous syringe (Lovenox) furosemide 20 mg tablet (Lasix) 20 mg PO DAILY 01/16/25 01/16/25 insulin glargine 100 unit/mL (3 20 unit subcut DAILY 01/16/25 01/16/25 mL) subcutaneous pen (Lantus Solostar U-100 Insulin) ipratropium 0.5 mg-albuterol 3 mg 3 ml inhalation TID 01/16/25 01/16/25 (2.5 mg base)/3 mL nebulization soln linagliptin 5 mg tablet (Tradjenta) 5 mg PO DAILY 01/16/25 01/16/25 metformin 1,000 mg tablet 1,000 mg PO BID 01/16/25 01/16/25 methocarbamol 500 mg tablet 500 mg PO TID PRN muscle spasm 01/16/25 01/16/25 metoprolol tartrate 25 mg tablet 25 mg PO BID 01/16/25 01/16/25 pantoprazole 20 mg tablet,delayed 20 mg PO DAILY 01/16/25 01/16/25 release prednisone 20 mg tablet 60 mg PO DAILY 01/16/25 01/16/25 tamsulosin 0.4 mg capsule (Flomax) 0.4 mg PO DAILY 01/16/25 01/16/25 tetrahydrozoline 0.05 % eye drops 1 drp ophthalmic (eye) TID 01/16/25 01/16/25 (Visine) trazodone 50 mg tablet 50 mg PO HS 01/16/25 01/16/25 Allergies Allergy/AdvReac Type Severity Reaction Status Date / Time No Known Drug Allergies Allergy Verified 01/16/25 07:41 Review of Systems ROS Narrative Not obtainable, patient acuity [facility] Medical History (Updated 01/16/25 @ 11:22 by Gareth Olea MD) Hyperlipidemia ?E78.5 - Hyperlipidemia, unspecified (ICD-10) Myocardial infarct ?I21.9 - Acute myocardial infarction, unspecified (ICD-10) NSTEMI (non-ST elevated myocardial infarction) ?I21.4 - Non-ST elevation (NSTEMI) myocardial infarction (ICD-10) Elevated white blood cell count ?D72.829 - Elevated white blood cell count, unspecified (ICD-10) Pressure ulcer ?L89.90 - Pressure ulcer of unspecified site, unspecified stage (ICD-10) Dysphagia ?R13.10 - Dysphagia, unspecified (ICD-10) CHF (congestive heart failure) ?I50.9 - Heart failure, unspecified (ICD-10) Type 2 diabetes mellitus ?E11.9 - Type 2 diabetes mellitus without complications (ICD-10) Chronic kidney disease ?N18.9 - Chronic kidney disease, unspecified (ICD-10) COPD (chronic obstructive pulmonary disease) ?J44.9 - Chronic obstructive pulmonary disease, unspecified (ICD-10) Peripheral vascular disease ?I73.9 - Peripheral vascular disease, unspecified (ICD-10) Atherosclerosis ?I70.90 - Unspecified atherosclerosis (ICD-10) Gangrene ?I96 - Gangrene, not elsewhere classified (ICD-10) Surgical History (Updated 01/16/25 @ 10:23 by Joselyn Palacio RN) Amputated left leg ?S88.912A - Complete traumatic amputation of left lower leg, level unspecified, initial encounter (ICD-10) Exam Narrative Exam Narrative: Nurses note and vital signs reviewed and patient is not hypoxic. General: The patient appears dyspneic and is on oxygen upon arrival. Skin: Warm, dry, no pallor noted. There is no rash noted. Head: Normocephalic, atraumatic Eye: Normal conjunctiva, no drainage Ears, Nose, Mouth, and Throat: oral mucosa is somewhat dry. Nares patent. Cardiovascular: Regular Rate and Rhythm, tachycardic Respiratory: The patient appears dyspneic. Breath sounds are equal and he has bilateral rhonchi. He is tachypneic. 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 He has what appears to be an alcohol wipe on a wound on the anterior surface of his left knee. There is a tiny open area at the left leg stump but there is no purulent drainage. Neurological: He appears drowsy. He is able to tell me where he is and his name. He will open his eyes when spoken to. Psychiatric: Cooperative Constitutional Vital Signs, click to edit/add: Last Vital Signs Temp 97.6 F 01/16/25 09:18 Pulse 97 H 01/16/25 10:29 Resp 16 01/16/25 10:29 BP 123/75 01/16/25 10:29 Pulse Ox 98 01/16/25 10:29 O2 Del Method BIPAP 01/16/25 09:18 O2 Flow Rate 2 01/16/25 07:42 FiO2 40 01/16/25 08:18 Course Vital Signs Vital signs: Vital Signs Pulse Oximetry 94 L 01/16/25 07:40 Oxygen Delivery Method Nasal Cannula 01/16/25 07:40 Oxygen Delivery Flow Rate 2 01/16/25 07:40 Temperature 97.6 F 01/16/25 09:18 Pulse Rate 97 H 01/16/25 10:29 Respiratory Rate 16 01/16/25 10:29 Blood Pressure 123/75 01/16/25 10:29 Pulse Oximetry 98 01/16/25 10:29 Oxygen Delivery Method BIPAP 01/16/25 09:18 Oxygen Delivery Flow Rate 2 01/16/25 07:42 Fraction of Inspired Oxygen 40 01/16/25 08:18 Medical Decision Making MDM Narrative Medical decision making narrative: The patient presents in respiratory distress and was placed on BiPAP just after arrival. He was given aerosol treatment. It was determined that he is in heart failure and was given IV Lasix. Initial ABG showed a PCO2 of 69 and the repeat was 62, improved. Carroll catheter was inserted. I had numerous discussions with multiple family members including a daughter and a son and that son's . They have full understanding of the serious nature of the patient's condition. I had talked to the patient about intubation and the patient stated that he did not want to be intubated and the family supports this decision. Family is asking about hospice and I have open the discussion of DNR status. Family states they will wait to speak to their other sibling when he arrives. Initial consideration was given to transferring the patient to [facility] but then the family requested that he be admitted here since there is no service that they would provide here that we cannot here. The patient will be intubated and will not end up having a heart catheterization even though his troponin went up, which is likely due to heart strain. Family agrees that he would not have a heart catheterization. I have spoken to Dr. Morel who is seeing the patient here in the emergency department. CTA chest is pending at the time of this dictation. Differential Diagnosis Differential Diagnosis: Heart failure, OK, pneumonia, respiratory failure Lab Data Lab results reviewed: Yes I reviewed the patient's lab results Labs: Lab Results 01/16/25 01/16/25 01/16/25 Range/Units 08:03 08:05 08:20 WBC 10.5 (4.0-11.0) 10^3/uL RBC 3.20 L (4.70-6.10) 10^6/uL Hgb 7.8 L (14.0-18.0) g/dL Hct 27.3 L (42.0-54.0) % MCV 85.3 (80.0-94.0) fL MCH 24.4 L (25.9-34.0) pg MCHC 28.6 L (29.9-35.2) g/dL RDW 17.4 H (11.0-15.0) % Plt Count 158 (150-450) 10^3/uL MPV 10.3 (9.5-13.5) fL Seg Neuts % (Manual) 87.0 H (43.0-75.0) Band Neutrophils % 2.0 (0-5) % Lymphocytes % (Manual) 7.0 L (20.5-60.0) % Monocytes % (Manual) 3.0 (1.7-12.0) % Eosinophils % (Manual) 0.0 L (0.9-7.0) % Basophils % (Manual) 0.0 L (0.2-2.0) % Metamyelocytes % 1.0 Neutrophils # (Manual) 9.13 H (1.4-6.5) 10^3/uL Band Neutrophils # 0.2 (0.0-0.3) 10^3/uL Lymphocytes # (Manual) 0.73 L (1.20-3.80) 10^3/uL Monocytes # (Manual) 0.31 (0.30-0.80) 10^3/uL Eosinophils # (Manual) 0.00 (0.00-0.70) 10^3/uL Basophils # (Manual) 0.00 (0.00-0.10) 10^3/uL Metamyelocytes # 0.10 Nucleated RBCs 2 Anisocytosis 1+ Puncture Site R rad ABG pH 7.236 L* (7.350-7.450) ABG pCO2 69.4 H* (35.0-45.0) mmHg ABG pO2 150.0 H (80.0-100.0) mmHg ABG HCO3 29.5 H (22.0-26.0) mmol/L ABG O2 Saturation 99.5 % ABG Base Excess 2.0 (-2.0-2.0) mmol/L Adal Test Positive (POSITIVE) FiO2 40 % BiPAP 18/8 Sodium 145 (136-145) mmol/L Potassium 4.1 (3.5-5.1) mmol/L Chloride 107 (98-107) mmol/L Carbon Dioxide 32.9 H (21.0-32.0) mmol/L Anion Gap 9.2 BUN 33.0 H (7.0-18.0) mg/dL Creatinine 1.31 H (0.70-1.30) mg/dL Est GFR ( Amer) >60 (>=60 mL/min/1.73m^2) Est GFR (Non-Af Amer) 52 L (>=60 mL/min/1.73m^2) BUN/Creatinine Ratio 25.2 Glucose 247 H (74-106) mg/dL Lactate 0.9 (0.4-2.0) mmol/L Calcium 8.8 (8.5-10.1) mg/dL Troponin I High Sens 256.1 H* (4.0-76.1) pg/mL SARS-CoV-2 Ag (CV2AG) Negative (NEGATIVE) 01/16/25 01/16/25 Range/Units 09:20 10:33 WBC (4.0-11.0) 10^3/uL RBC (4.70-6.10) 10^6/uL Hgb (14.0-18.0) g/dL Hct (42.0-54.0) % MCV (80.0-94.0) fL MCH (25.9-34.0) pg MCHC (29.9-35.2) g/dL RDW (11.0-15.0) % Plt Count (150-450) 10^3/uL MPV (9.5-13.5) fL Seg Neuts % (Manual) (43.0-75.0) Band Neutrophils % (0-5) % Lymphocytes % (Manual) (20.5-60.0) % Monocytes % (Manual) (1.7-12.0) % Eosinophils % (Manual) (0.9-7.0) % Basophils % (Manual) (0.2-2.0) % Metamyelocytes % Neutrophils # (Manual) (1.4-6.5) 10^3/uL Band Neutrophils # (0.0-0.3) 10^3/uL Lymphocytes # (Manual) (1.20-3.80) 10^3/uL Monocytes # (Manual) (0.30-0.80) 10^3/uL Eosinophils # (Manual) (0.00-0.70) 10^3/uL Basophils # (Manual) (0.00-0.10) 10^3/uL Metamyelocytes # Nucleated RBCs Anisocytosis Puncture Site Rr ABG pH 7.263 L* (7.350-7.450) ABG pCO2 62.8 H* (35.0-45.0) mmHg ABG pO2 79.1 L (80.0-100.0) mmHg ABG HCO3 28.4 H (22.0-26.0) mmol/L ABG O2 Saturation 95.0 % ABG Base Excess 1.4 (-2.0-2.0) mmol/L Adal Test Positive (POSITIVE) FiO2 30 % BiPAP 18/8 Sodium (136-145) mmol/L Potassium (3.5-5.1) mmol/L Chloride (98-107) mmol/L Carbon Dioxide (21.0-32.0) mmol/L Anion Gap BUN (7.0-18.0) mg/dL Creatinine (0.70-1.30) mg/dL Est GFR ( Amer) (>=60 mL/min/1.73m^2) Est GFR (Non-Af Amer) (>=60 mL/min/1.73m^2) BUN/Creatinine Ratio Glucose (74-106) mg/dL Lactate (0.4-2.0) mmol/L Calcium (8.5-10.1) mg/dL Troponin I High Sens 559.0 H* (4.0-76.1) pg/mL SARS-CoV-2 Ag (CV2AG) (NEGATIVE) Imaging Data Chest x-ray: Radiologist's impression: ITS Impressions Chest X-Ray 01/16/25 07:42 IMPRESSION: Findings suggestive of edema and CHF. Impression dictated by: Tavo Colon M.D. 01/16/2025 8:05 AM Dictation Location: [place] [address] Electronically authenticated by: [id number] Y Date: 01/16/2025 08:05 ECG Data Attestation: I personally reviewed and interpreted this ECG as follows: (EKG on my interpretation shows sinus rhythm with a rate of 106) Critical Care Time Critical Care Time Critical Care Time: Yes Total Critical Care Time: 110 Attestation: Due to the high probability of sudden and clinically significant deterioration in the patient's condition he/she required the highest level of my preparedness to intervene urgently I provided critical care time including documentation time, medication orders and management, reevaluation, vital sign assessment, ordering and reviewing of lab tests, ordering and reviewing of x-ray studies, and admission orders. Aggregate critical care time is 110 minutes including only time during which I was engaged in work directly related to his/her care and did not include time spent treating other patients simultaneously. Discharge Plan Discharge Chief Complaint: Shortness of Breath/Dyspnea Clinical Impression: Congestive heart failure, Respiratory failure Patient Disposition: Admitted As Inpatient Time of Disposition Decision: 11:22 Condition: Critical
--- NOTE | 2025-01-16 11:31 | CT_ITS ---
The [address] [address] Patient Name: HOLLY AGUIAR MRN: [id number] date: 1940 Sex: M Assigned Patient Location: ER Current Patient Location: ER Accession/Order Number: [id number] Exam Date: 01/16/2025 12:14 Report Date: 01/16/2025 12:15 At the request of: NICANOR HUNTER MD Procedure: CT head/brain wo con CT BRAIN WITHOUT CONTRAST: CLINICAL HISTORY: Altered mental status COMPARISON: None TECHNIQUE: Contiguous axial unenhanced images were obtained through the brain. This CT exam was performed using one or more following dose reduction techniques: Automated exposure control, adjustment of the mA and/or kV according to patient size, or use of iterative reconstruction technique. FINDINGS: There is no evidence of midline shift, intra or extra-axial fluid collection, hemorrhage or CT evidence of of acute large vascular distribution stroke. Central involutional changes and minor chronic small vessel ischemic disease. Intracranial vascular calcification identified. Cataract surgery. Mild ethmoid sinus mucosal thickening. The surrounding soft tissues are normal. CT/CT head/brain wo con IMPRESSION: NO ACUTE INTRACRANIAL ABNORMALITY. 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 Impression dictated by: Tavo Colon M.D. 01/16/2025 12:15 PM Dictation Location: [place] [address] Electronically authenticated by: [id number] Y Date: 01/16/2025 12:15
--- NOTE | 2025-01-16 11:34 | CA_ITS ---
Patient Name: HOLLY AGUIAR MR#: [id number] : 1940 Exam Date: 01/16/2025 Ordering Doctor: NICANOR HUNTER ECHOCARDIOGRAM REPORT PROCEDURE: CA ECHO DOPPLER COMPLETE INDICATIONS: CHF COMPARISON: None. DESCRIPTION: COMPLETE ECHOCARDIOGRAM Real-time transthoracic echocardiography with 2D, M-mode, spectral and color flow Doppler performed. QUALITY: Technical quality was good. LEFT VENTRICLE: Normal chamber size. Mild concentric left ventricular hypertrophy. There is hypokinesis of the apex and apical segments. Global left ventricular systolic function is at the lower limits of normal. LV EF: Estimated left ventricular ejection fraction is 50%. DIASTOLIC: Grade II diastolic dysfunction. ATRIAL SEPTUM: LEFT ATRIUM: Severe dilatation. RIGHT ATRIUM: Mild dilatation. RIGHT VENTRICLE: Normal chamber size. Normal right ventricular systolic function. TRICUSPID VALVE: Normal mobility and thickness. No stenosis with mild regurgitation. Mild pulmonary hypertension. RVSP 39 mmHg. MITRAL VALVE: Mildly thickened with normal mobility. No evidence of mitral valve stenosis. Mild mitral annular calcification. Mild mitral regurgitation. AORTIC VALVE: Normal trileaflet appearance. Mildly calcified aortic valve. Mildly diminished mobility. Doppler velocity suggest mild aortic valve stenosis. DVI 0.57, LORNE 1.69 cm2, Vmax 1.8 m/s, mean gradient 6 mmHg. Mild aortic regurgitation. AORTIC ROOT: Normal diameter and appearance. PULMONIC VALVE: Thickened valve with normal mobility. No stenosis. Mild regurgitation. PERICARDIUM: No evidence of pericardial effusion. IVC: Normal size with no collapse. PLEURA: CONCLUSION: 1. Mild concentric left ventricular hypertrophy with hypokinesis of the apex and apical segments. Global systolic function is at the lower limits of normal. Estimated LVEF is 50%. 2. Normal right ventricular size and systolic function. 3. Grade 2 diastolic dysfunction. 4. Mild mitral and tricuspid regurgitation. 5. Mild aortic valve stenosis and regurgitation. 6. Mildly elevated right-sided pressures. Adult Echocardiography Procedure Report Left Ventricle LVEDD (3.7 - 5.6 cm): 4.55 cm LVESD (2.2 - 4.0 cm): 3.15 cm LVIVS thickness (0.6 - 1.2 cm): 1.29 cm LVPW thickness (0.5 - 1.0 cm): 1.26 cm e': 0.06 m/s E - e': 17.10 LVOT Max Gradient: 4.20 mm[Hg] LVOT Area (cm2): 1.02 m/s Peak Velocity (LVOT): 1.02 m/s Mean Velocity (LVOT): 0.63 m/s LVOT Diameter 1.87 cm Left Ventricular Ejection Fraction: 50 % Left Atrium LA Volume Index (2D A2C): 55.71 ml/m2 Left Atrium Systolic Dimension: 4.81 cm Mitral Valve MV E to A Ratio: 1.12 Mitral Valve A-Wave Peak Velocity: 0.98 m/s Mitral Valve E-Wave Peak Velocity: 1.10 m/s Right Ventricle RV Internal Diastolic Dimension: 3.31 cm Aorta AO Root Diam: 3.36 cm Aortic Valve AoV Area (Peak Neil): 1.59 cm2, 1.59 cm2 AoV Area (VTI): 1.56 cm2, 1.56 cm2 Deceleration [place]: 3.36 m/s2 Pressure Half-Time: 300.79 ms Peak Velocity(Antegrade Flow): 1.77 m/s Peak Gradient(Antegrade Flow): 12.60 mm[Hg] Mean Velocity(Antegrade Flow): 1.18 m/s Mean Gradient(Antegrade Flow): 6.48 mm[Hg] Velocity Time Integral: 42.57 cm Tricuspid Valve Peak Velocity (Regurgitant Flow): 2.87 m/s, 2.87 m/s, 2.98 m/s, 2.89 m/s Pulmonic Valve Peak Velocity: 0.87 m/s Peak Gradient: 3.02 mm[Hg] Right Atrium Right Atrium Systolic Pressure: 29.26 ml, 29.26 ml Dictated by: Manjit Ramos M.D. on 01/16/2025 at 22:25 Approved by: Manjit Ramos M.D. on 01/16/2025 at 22:31
--- NOTE | 2025-01-16 11:36 | PM.HP ---
HPI H&P: HPI History of Present Illness Chief complaint: SOB Narrative: Mr. Tran is an 84-year-old gentleman who was sent to the emergency room from a snf with a complaint of shortness of breath and altered mental status. He was found to have respiratory failure. pH was 7.26 and [id number]. Patient was placed on BiPAP. Chest x-ray showed interstitial pulmonary edema. Hemoglobin is 7.8. No reported hematemesis or melena. Patient was evaluated in the emergency room department and I was asked to evaluate patient and decide if is appropriate to be admitted here at [facility] or transfer to tertiary care center Patient is currently unresponsive on BiPAP. Respiratory rate is about 22. His family is at the bedside including 2 daughters and 1 son. Family does not want him to be intubated or placed on life support. Family does not want aggressive medical care. Family is waiting for his second son to arrive and discuss this further but for now, family is leaning toward comfort care approach. Patient is known to have coronary artery disease. He had coronary artery bypass graft in the past. He is known to have COPD. He smoked for many years in the past. 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 in November followed by admission to the rehab unit for physical therapy and rehabilitation. [facility] Medical History (Updated 01/16/25 @ 11:41 by Elias Morel MD) Hyperlipidemia ?E78.5 - Hyperlipidemia, unspecified (ICD-10) Myocardial infarct ?I21.9 - Acute myocardial infarction, unspecified (ICD-10) NSTEMI (non-ST elevated myocardial infarction) ?I21.4 - Non-ST elevation (NSTEMI) myocardial infarction (ICD-10) Elevated white blood cell count ?D72.829 - Elevated white blood cell count, unspecified (ICD-10) Pressure ulcer ?L89.90 - Pressure ulcer of unspecified site, unspecified stage (ICD-10) Dysphagia ?R13.10 - Dysphagia, unspecified (ICD-10) CHF (congestive heart failure) ?I50.9 - Heart failure, unspecified (ICD-10) Type 2 diabetes mellitus ?E11.9 - Type 2 diabetes mellitus without complications (ICD-10) Chronic kidney disease ?N18.9 - Chronic kidney disease, unspecified (ICD-10) COPD (chronic obstructive pulmonary disease) ?J44.9 - Chronic obstructive pulmonary disease, unspecified (ICD-10) Peripheral vascular disease ?I73.9 - Peripheral vascular disease, unspecified (ICD-10) Atherosclerosis ?I70.90 - Unspecified atherosclerosis (ICD-10) Gangrene ?I96 - Gangrene, not elsewhere classified (ICD-10) Surgical History (Updated 01/16/25 @ 10:23 by Joselyn Palacio RN) Amputated left leg ?S88.912A - Complete traumatic amputation of left lower leg, level unspecified, initial encounter (ICD-10) Meds Home Medications and Allergies Home Medications ?Medication ?Instructions ?Recorded ?Confirmed ?Type arginine 7 gram-glutam 7 1 packet PO BID 01/16/25 01/16/25 History gram-CaHMB 1.5 njhh-atcxi-of-min oral pwd pkt ([place] (with collagen)) docusate sodium 100 mg capsule 100 mg PO BID 01/16/25 01/16/25 History (Colace) enoxaparin 40 mg/0.4 mL 40 mg subcut DAILY 01/16/25 01/16/25 History subcutaneous syringe (Lovenox) furosemide 20 mg tablet (Lasix) 20 mg PO DAILY 01/16/25 01/16/25 History insulin glargine 100 unit/mL (3 20 unit subcut DAILY 01/16/25 01/16/25 History mL) subcutaneous pen (Lantus Solostar U-100 Insulin) ipratropium 0.5 mg-albuterol 3 mg 3 ml inhalation TID 01/16/25 01/16/25 History (2.5 mg base)/3 mL nebulization soln linagliptin 5 mg tablet (Tradjenta) 5 mg PO DAILY 01/16/25 01/16/25 History metformin 1,000 mg tablet 1,000 mg PO BID 01/16/25 01/16/25 History methocarbamol 500 mg tablet 500 mg PO TID PRN muscle spasm 01/16/25 01/16/25 History metoprolol tartrate 25 mg tablet 25 mg PO BID 01/16/25 01/16/25 History pantoprazole 20 mg tablet,delayed 20 mg PO DAILY 01/16/25 01/16/25 History release prednisone 20 mg tablet 60 mg PO DAILY 01/16/25 01/16/25 History tamsulosin 0.4 mg capsule (Flomax) 0.4 mg PO DAILY 01/16/25 01/16/25 History tetrahydrozoline 0.05 % eye drops 1 drp ophthalmic (eye) TID 01/16/25 01/16/25 History (Visine) trazodone 50 mg tablet 50 mg PO HS 01/16/25 01/16/25 History Allergies Allergy/AdvReac Type Severity Reaction Status Date / Time No Known Drug Allergies Allergy Verified 01/16/25 07:41 Exam Narrative Exam Narrative: Patient is lying in bed. Moderate respiratory distress. He is on BiPAP. He is unresponsive. I called his name but he did not open his eyes. Pale skin buccal mucosa. Cachectic and frail in appearance. Bitemporal muscle wasting. Upper and lower extremities muscle wasting and atrophy. Heart is a regular, slightly tachycardic. Chest exam revealed bilateral crackles. Abdomen soft. Could not assess for tenderness due to diminished responsiveness. Lower extremity showed muscle wasting and atrophy. Loss of subcutaneous fat. Right below-knee amputation. Constitutional Vital Signs, click to edit/add: Last Vital Signs Temp 97.6 F 01/16/25 09:18 Pulse 97 H 01/16/25 10:29 Resp 16 01/16/25 10:29 BP 123/75 01/16/25 10:29 Pulse Ox 98 01/16/25 10:29 O2 Del Method BIPAP 01/16/25 09:18 O2 Flow Rate 2 01/16/25 07:42 FiO2 40 01/16/25 08:18 Results Labs Labs: Short CBC 01/16/25 Range/Units 08:03 WBC 10.5 (4.0-11.0) 10^3/uL Hgb 7.8 L (14.0-18.0) g/dL Hct 27.3 L (42.0-54.0) % Plt Count 158 (150-450) 10^3/uL BMP 01/16/25 08:03 Sodium 145 Potassium 4.1 Chloride 107 Carbon Dioxide 32.9 H BUN 33.0 H Creatinine 1.31 H Glucose 247 H Calcium 8.8 ABG ABG results: 01/16/25 01/16/25 08:05 09:20 ABG pH 7.236 L* 7.263 L* ABG pCO2 69.4 H* 62.8 H* ABG pO2 150.0 H 79.1 L ABG HCO3 29.5 H 28.4 H ABG O2 Saturation 99.5 95.0 ABG Base Excess 2.0 1.4 Assessment and Plan Assessment and Plan (1) Acute respiratory failure with hypoxia and hypercapnia: (2) Acute heart failure: (3) Renal failure: (4) Anemia: (5) Encephalopathy: (6) CAD (coronary artery disease): Plan Patient has multisystem failure as reported above. If patient is a full code, he would require ICU care, transferring to tertiary care center, intubation, mechanical ventilation support, CAD evaluation including cardiac cath, anemia evaluation which may include but not limited to EGD and colonoscopy, monitoring for his encephalopathy and proceed with additional diagnostic investigation and therapeutic intervention such as MRI, neuro consultation and EEG. Family requested not to proceed with intubation or placement on mechanical ventilation. The ER physician as well as myself spent quite a bit of time discussing goals of care with his 2 daughters and 1 son Wagner who just arrived Family thus far is leaning toward comfort care approach. Family stated that patient has a poor quality living and do not want to extend that kind of living. Family stated that the patient is ready to pass and be with his who recently . 2 sisters and 1 son are waiting for his second son to discuss this further and make a final decision. For now, patient will be going for CT head to rule out acute intracranial bleed. Assuming that family will change his CODE STATUS to DNR CC after the arrival of his second son, I would plan to admit him to [facility] stepdown unit. Continue BiPAP support. Change setting up to 22/10. Try to wean him off of BiPAP over the next 48 to 96 hours N.p.o. status. Diuretics. Echocardiogram Trend his troponin. Initiate beta-augustine, CATHERINE inhibitor and nitrate if blood pressure allows. Initiate antiplatelets and anticoagulation if his hemoglobin is stable and CT head is negative for acute bleed. Check stool Hemoccult. Basic anemia workup for now including checking his ferritin, iron study, TIBC and stool Hemoccult. Start patient on PPI for GI bleed prophylaxis Start patient on intravenous antibiotics suspecting that he may have aspiration pneumonia. Carroll catheter and UA. I will try my best to revive him and by him sometime with the limitation of DNR CC approach. Under DNRCC status, there is a likelihood that patient will continue to decline and will pass. We will seek hospice enrollment if and when time is appropriate. Patient's status is dynamic and evolutionary therefore the aforementioned assessment and plan may or may not be complete or conclusive. The patient will likely require to have additional workup, investigation and therapeutic invention that would be determined based on the clinical progress, follow-up test result and family's desire to proceed accordingly. Spent about 1 hour in the critical care evaluation, assessment and treatment of this patient thus far. Patient is in a critical state of condition with multisystem failure. Prognosis is guarded. Urinary Catheter Management Urinary Catheter Management Urethral: Cath placed during this visit: yes Urethral indwelling: No Insertion date: 01/16/25 Insertion time: :
[2025-01-16 11:52] LABS: Alanine Aminotransferase 35 U/L (16-63); Albumin Globulin Ratio 0.7; Albumin Level 2.7 g/dL (3.4-5.0); Alkaline Phosphatase 117 U/L (46-116); Aspartate Amino Transferase 35 U/L (15-37); Globulin 3.9 g/dL; Total Protein 6.6 g/dL (6.4-8.2)
[2025-01-16 12:03] LABS: NT Pro B Type Natriuretic Pept 8337.0 pg/mL (<=1800.0)
[2025-01-16 12:05] LABS: Glucose Urine UA NEGATIVE (NEGATIVE)
[2025-01-16 12:10] LABS: Cast Seen? SEEN #/LPF (NONE SEEN); Crystals Seen? None Seen #/HPF (None Seen); Urine Culture Indicated NO
--- NOTE | 2025-01-16 13:05 | PHOTOS ---
left knee cap
[2025-01-16 13:18] LABS: Iron 10.0 ug/dL (65.0-175.0); Percent Iron Saturation 3.0 %; Total Iron Binding Capacity 331.0 ug/dL (250.0-450.0)
[2025-01-16 13:31] LABS: Ferritin 19.0 ng/mL (26.0-388.0)
[2025-01-16] MEDS: VANCOMYCIN HCL 1,000 MG in 0.9 % SODIUM CHLORIDE 250 ML 250 MG IV (14:30)
[2025-01-16] MEDS: ASPIRIN 300 MG SUPP.RECT PR (14:30)
--- NOTE | 2025-01-16 14:32 | SWNOTE1 ---
SW spoke to nurse. Family is going to change pt to DNRCCA. They would like to see if pt improves, if not then likely will need hospice care. MILLA spoke to pt's son, Wagner. He voiced his brother and sister went over to [facility] to pay and hold bed. He voiced pt was there skilled. He stated his mother a year ago with [facility] at in unit. Pt had amputation on leg 2 months ago, was at [facility] for acute rehab for 3 weeks and now been at [facility] for a few weeks. SW did talk with son about hospice, if pt does needing it. SW let him know that care home care at [facility] with hospice, would not be covered by Medicare, it would be out of pocket expense. He voiced some familiarity with hospice from dealing with [facility] with his mother. At this time he had no further questions. MILLA advised that once his brother and sister return and if they have any further questions, the nurse can reach out to SW and SW can come back. He voice understanding.
[2025-01-16] MEDS: PANTOPRAZOLE SODIUM 40 MG VIAL IV (16:30)
[2025-01-16] MEDS: DEXAMETHASONE SOD PHOS 4 MG/ML VIAL IV ×2 (16:30→22:08)
[2025-01-16] MEDS: PIPERACILLIN SODIUM/TAZOBACTAM 3.375 GM in 0.9 % SODIUM CHLORIDE 50 ML IV ×2 (16:30→23:39)
[2025-01-16] MEDS: ALBUMIN HUMAN 25 GM/100 ML PREMIX IV (16:30)
[2025-01-16 19:02] LABS: Mean Corpuscular HGB Conc 29.3 g/dL (29.9-35.2); Mean Corpuscular Hemoglobin 24.3 pg (25.9-34.0); Mean Corpuscular Volume 83.0 fL (80.0-94.0); Platelet Count 160 10^3/uL (150-450); Red Blood Count 2.59 10^6/uL (4.70-6.10); White Blood Count 6.2 10^3/uL (4.0-11.0)
[2025-01-16 19:04] LABS: Hematocrit 21.5 % (42.0-54.0); Hemoglobin 6.3 g/dL (14.0-18.0)
[2025-01-16 20:04] LABS: Mean Corpuscular HGB Conc 29.2 g/dL (29.9-35.2); Mean Corpuscular Hemoglobin 24.3 pg (25.9-34.0); Mean Corpuscular Volume 83.2 fL (80.0-94.0); Platelet Count 157 10^3/uL (150-450); Red Blood Count 2.80 10^6/uL (4.70-6.10); White Blood Count 5.8 10^3/uL (4.0-11.0)
[2025-01-16 20:05] LABS: Hematocrit 23.3 % (42.0-54.0); Hemoglobin 6.8 g/dL (14.0-18.0)
[2025-01-16] MEDS: IPRATROPIUM/ALBUTEROL SULFATE 3 ML AMPUL.NEB IH (20:17)
--- NOTE | 2025-01-16 20:50 | RESP.RT ---
Pt complaining of BIPAP hurting nose. Duoderm was applied but pt still complaining. Pt becoming very agitated and once BIPAP mask off. Mask was removed and pt was placed on 2L nasal cannula.
[2025-01-16] MEDS: 0.9 % SODIUM CHLORIDE 250 ML 10 ML IV (21:15)
[2025-01-16] MEDS: DIAZEPAM 10 MG/2 ML SYRINGE 2 MG IV (22:09)
[2025-01-17] VITALS (43 sets, daily range): BP systolic 111–144; BP diastolic 53–77; PULSE 71–100; RESP 16; TEMP 36.2–36.9; O2SAT 78–99; BMI 21.3
[2025-01-17] MEDS: IPRATROPIUM/ALBUTEROL SULFATE 3 ML AMPUL.NEB IH ×3 (04:15→21:34)
[2025-01-17 05:35] LABS: Hematocrit 28.8 % (42.0-54.0); Hemoglobin 8.9 g/dL (14.0-18.0); Mean Corpuscular HGB Conc 30.9 g/dL (29.9-35.2); Mean Corpuscular Hemoglobin 25.3 pg (25.9-34.0); Mean Corpuscular Volume 81.8 fL (80.0-94.0); Platelet Count 153 10^3/uL (150-450); Red Blood Count 3.52 10^6/uL (4.70-6.10); White Blood Count 7.1 10^3/uL (4.0-11.0)
[2025-01-17 05:53] LABS: Alanine Aminotransferase 28 U/L (16-63); Albumin Globulin Ratio 0.8; Albumin Level 2.8 g/dL (3.4-5.0); Alkaline Phosphatase 107 U/L (46-116); Anion Gap 9.1; Aspartate Amino Transferase 19 U/L (15-37); Blood Urea Nitrogen 37.0 mg/dL (7.0-18.0); Calcium 8.9 mg/dL (8.5-10.1); Carbon Dioxide 33.0 mmol/L (21.0-32.0); Chloride 105 mmol/L (98-107); Estimated GFR (African America 55 (>=60 mL/min/1.73m^2); Estimated GFR (Non-African Ame 45 (>=60 mL/min/1.73m^2); Globulin 3.4 g/dL; Glucose 393 mg/dL (74-106); Magnesium 1.2 mg/dL (1.8-2.4); Potassium 4.1 mmol/L (3.5-5.1); Sodium 143 mmol/L (136-145); Total Protein 6.2 g/dL (6.4-8.2)
--- NOTE | 2025-01-17 08:13 | ECG_ITS ---
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 Measurements Intervals [place] Rate: 84 P: 80 AR: 158 QRS: 73 QRSD: 78 T: 76 QT: 346 QTc: 386 Interpretive Statements 1100 Sinus rhythm 3433 Septal myocardial infarction, probably old 8100 Low QRS voltage 9150 abnormal ECG Compared to ECG 01/16/2025 07:44:44 Sinus tachycardia no longer present ST (T wave) deviation no longer present Myocardial infarct finding still present Electronically Signed On 01-17-2025 20:50:50 EDT by DIXON BAHENA M.D.
[2025-01-17] MEDS: DEXAMETHASONE SOD PHOS 4 MG/ML VIAL IV ×2 (08:22→15:34)
[2025-01-17] MEDS: PIPERACILLIN SODIUM/TAZOBACTAM 3.375 GM in 0.9 % SODIUM CHLORIDE 50 ML IV ×2 (08:22→15:34)
[2025-01-17] MEDS: MAGNESIUM SULFATE IN WATER 2 GM/50 ML PREMIX IV (08:28)
[2025-01-17] MEDS: ASPIRIN 300 MG SUPP.RECT PR (08:31)
--- NOTE | 2025-01-17 09:21 | P.PN_ITS ---
Progress Note: Subjective Subjective Interval history: Patient is doing much better than yesterday. He is awake. Able to answer questions. Able to follow commands. Somewhat restless. Confused and disoriented. Hungry and asking for food. He denies any pain or discomfort. He is off BiPAP.. He is on nasal cannula. Exam Narrative Exam Narrative: Patient is lying in bed. Awake. Somewhat restless. Asking for food. Unable to focus. Able to answer simple questions. Able to follow simple command. Cachectic and frail in appearance. Neck is supple. Chest exam revealed bilateral crackles. Heart is regular, slightly tachycardic. Abdomen is soft, nontender. Lower extremities no edema. Left below-knee amputation. Constitutional Vital Signs, click to edit/add: Last Vital Signs Temp 98.3 F 01/17/25 08:00 Pulse 82 01/17/25 07:53 Resp 25 H 01/17/25 07:39 BP 138/75 01/17/25 07:39 Pulse Ox 97 01/17/25 07:53 O2 Del Method Nasal Cannula 01/17/25 08:00 O2 Flow Rate 2 01/17/25 08:00 FiO2 30 01/17/25 04:15 Progress Note: Objective Labs Labs: Short CBC 01/16/25 01/16/25 01/17/25 Range/Units 18:35 19:35 05:06 WBC 6.2 5.8 7.1 (4.0-11.0) 10^3/uL Hgb 6.3 L* 6.8 L* 8.9 L (14.0-18.0) g/dL Hct 21.5 L* 23.3 L* 28.8 L (42.0-54.0) % Plt Count 160 157 153 (150-450) 10^3/uL BMP 01/17/25 05:06 Sodium 143 Potassium 4.1 Chloride 105 Carbon Dioxide 33.0 H BUN 37.0 H Creatinine 1.49 H Glucose 393 H Calcium 8.9 Liver Function 01/16/25 01/17/25 Range/Units 10:25 05:06 Total Bilirubin 0.3 0.7 (0.2-1.0) mg/dL Direct Bilirubin 0.1 (0.0-0.2) mg/dL AST 35 19 (15-37) U/L ALT 35 28 (16-63) U/L Alkaline Phosphatase 117 H 107 (46-116) U/L Albumin 2.7 L 2.8 L (3.4-5.0) g/dL Urine 01/16/25 Range/Units 08:20 Urine Color Lt. yellow (YELLOW) Urine Clarity Clear (CLEAR) Urine pH 5.5 (5.0-9.0) Ur Specific [place] 1.020 (1.005-1.025) Urine Protein 30 A (NEG/TRACE) mg/dL Urine Glucose (UA) Negative (NEGATIVE) mg/dL Progress Note: A&P Assessment and Plan (1) Acute respiratory failure with hypoxia and hypercapnia: (2) Acute heart failure: (3) Renal failure: (4) Anemia: (5) Encephalopathy: (6) CAD (coronary artery disease): Plan Acute hypoxic respiratory failure Acute hypercapnic respiratory failure Multifactorial secondary to acute diastolic heart failure, bilateral pleural effusion, underlying COPD, probable aspiration versus healthcare associated pneumonia Echocardiogram does not show any cardiomyopathy Patient is doing much better. He is off BiPAP He is 1 L negative balance. Continue intravenous vancomycin and Zosyn pending culture report. Continue oxygen supplementation, Decadron and DuoNeb NSTEMI. EKGs showed minimal ST depression. No ST elevation. Likely secondary to high demand related to severe hypoxemia, hypercapnia, anemia. Low clinical suspicion for ACS however patient likely has underlying CAD. History of CABG in the past Patient is NPO. He is getting aspirin rectally. I added heparin subcu injection daily. Was monitoring of his hemoglobin Avoid heavy antiplatelets due to hemoglobin drop suspecting slow GI bleed. I started patient on nitrate transdermal I started patient on Lopressor intravenously Echocardiogram does not show significant cardiomyopathy or valvular disease Family yesterday opted not to proceed with urgent cardiac cath therefore patient was not to transfer to [facility], [place] or any other tertiary care center. Family requested no intubation, no aggressive measure but fell short of complete comfort care on hospice. Continue to honor family's wishes not to put him through aggressive medical care unless they change direction Bilateral pleural effusion Likely secondary to transudative process caused by low albumin as well as diastolic heart failure I could not exclude other possible etiologies such as exudative process and/or malignancy. This will need to be followed up with the imaging. No strong clinical justification for urgent diagnostic or therapeutic thoracentesis. May need both in the future. Anemia, no evidence of acute blood loss. Stool Hemoccult is pending. Hemoglobin at [facility] 2 weeks ago was 7.7. Iron studies consistent with iron deficiency. Patient has also an element of CKD that could be contributing to his anemia I started patient on PPI for gastric bleed prevention I started the patient on iron infusion daily. Avoid aggressive antiplatelets or anticoagulation for CAD suspecting that patient may have active slow GI bleed Patient will likely require to have anemia workup to be done in the outpatient setting to be handled by PCP in collaboration with other needed outpatient providers. This may include but not limited to EGD, colonoscopy, referral to see hematology and other needed age-appropriate cancer screening. Hypomagnesemia Magnesium supplementation. Check phosphorus level Knee wound, stump wound Continue IV antibiotic. Wound nurse consultation. Functional cognitive impairment, disability Patient was at the nursing facility for rehabilitation. Requested PT OT eval and treatment. Dysphagia Keep patient n.p.o. pending swallow team evaluation. Diabetes with hyperglycemia I started patient on Accu-Chek with a sliding scale coverage. Check A1c. Acute on chronic kidney failure. Try to keep patient in a euvolemic state. Adjust medications and diuretics accordingly. UA is bland. Patient continues to be in a critical state of condition. His prognosis continues to be poor but improved since yesterday. CODE STATUS currently is a DNR CCA. Family requested no intubation or life support. Family requested no aggressive or heroic measures. Family requested not to transfer him yesterday back to [facility] or any other institution. Family requested admission here to [facility] understanding potential limitation. Spent about 1 hour in the critical care evaluation, assessment and treatment of this patient was 40 Urinary Catheter Management Urinary Catheter Management Urethral: Cath placed during this visit: yes Urethral indwelling: No Insertion date: 01/16/25 Insertion time: 08:26
--- NOTE | 2025-01-17 09:45 | SWNOTE1 ---
MILLA spoke to Abdifatah at [facility] and requested wound care orders. MILLA did ask Abdifatah if pt does have confusion at baseline. She voiced that he does have a little confusion, but does go down to dining area to eat and says hi and usually knows where his room is. Abdifatah sent over wound care orders that they have from previous hospital. Case management has wound care orders as well.
--- NOTE | 2025-01-17 09:48 | CM.NOTE ---
Called Abdifatah for wound care orders from [facility]. Updated Dr. Morel of wound care order, consult entered for wound care.
[2025-01-17] MEDS: MORPHINE SULFATE 2 MG/ML SYRINGE 1 MG IV ×2 (09:55→15:48)
[2025-01-17] MEDS: METOPROLOL TARTRATE 5 MG/5 ML VIAL 2.5 MG IVP (10:02)
--- NOTE | 2025-01-17 10:18 | SWNOTE1 ---
MILLA faxed updates to [facility]. Updates included face sheet, physician notes, labs, vitals, diagnostic imaging, nursing notes, and Speech eval.
[2025-01-17] MEDS: IRON SUCROSE COMPLEX 200 MG in 0.9 % SODIUM CHLORIDE 100 ML 220 MG IV (11:34)
[2025-01-17] MEDS: INSULIN ASPART 300 UNIT/3 ML PEN SUBQ ×3 (11:34→21:48)
[2025-01-17] MEDS: QUETIAPINE FUMARATE 25 MG TABLET PO ×2 (11:53→21:37)
[2025-01-17] MEDS: METOPROLOL TARTRATE 25 MG TABLET PO ×2 (11:53→21:34)
[2025-01-17] MEDS: INSULIN GLARGINE 300 UNIT/3 ML INSULN.PEN 20 UNIT SQ (11:53)
[2025-01-17] MEDS: CLOPIDOGREL BISULFATE 75 MG TABLET PO (11:53)
--- NOTE | 2025-01-17 13:38 | SWNOTE1 ---
Important Message from Medicare reviewed and discussed with patient's youngest son. He verbalized understanding and signed the form. Original given to patient's youngest son and copy placed in patient?s chart.
[2025-01-17] MEDS: HEPARIN SODIUM (PORCINE) 5,000 UNIT/ML VIAL 5000 UNIT SUBQ ×2 (13:40→21:39)
[2025-01-17] MEDS: NITROGLYCERIN 2% 1 GRAM PACKET 0.5 GM TD (13:41)
[2025-01-17] MEDS: VANCOMYCIN HCL 1,000 MG in 0.9 % SODIUM CHLORIDE 250 ML 250 MG IV (13:41)
[2025-01-17] MEDS: ARTIFICIAL TEARS 300 DROP/15 ML BOTTLE OP ×2 (13:52→21:40)
--- NOTE | 2025-01-17 16:32 | PC.NURSE ---
family members at bedside. RT informed this nurse that family is attempting to give pt sips of thickened liquids while wearing bipap. family member stated we can't understand him when he's wearing that mask this nurse attempted to educate family members on the risks of aspiration while giving him drinks while wearing bipap. also encouraged pts family to allow pt to rest on bipap for periods of time. pt medicated per order for comfort, c/o generalized pain. call light within reach, chair alarm on.
--- NOTE | 2025-01-17 17:22 | P.EN_ITS ---
Event Note Event Note: I updated his dtr in law at the bed side this morning about his condition, status and tx plan. Family is very appreciative of care that he head recieved here at [facility] and the dramtic improvement over night. She confirmed that family made a villalobos decison yesterday not to transfer him to [facility] for any needed care or intervention. She asked for my my private cell number so pt's son in law Dr Hermelindo Ng can call me, get an update and discuss case and tx plan. Dr Ng is the family spokesperson from the medical stand point. Dr Ng called me. I updated him on condition, diagnoses and tx plan as listed on my note. I infomed him about anemia and the possible need for additional investigation and endoscopies. I informed about Trop rise and the likely smith that pt has progressive CAD. I informed him that pt may require a cardiac cath if pt and / or family are willing to proceed. Pt is not having any chest pain and no ST elevation. Dr Ng confirmed that pt and family's wishes are to focus on basic medical care and avoid all interventions as much as possible. Family does not want any heroic or aggressive measures just basic medical mgt. Family hopes that pt will be able to return back to SNF in few days. Dr Ng is very appreciative of excellent care provided at [facility].
[2025-01-17 19:57] LABS: Hematocrit 29.5 % (42.0-54.0); Hemoglobin 9.3 g/dL (14.0-18.0)
[2025-01-17 20:40] LABS: Magnesium 1.6 mg/dL (1.8-2.4)
[2025-01-17] MEDS: TAMSULOSIN HCL 0.4 MG CAPSULE PO (21:36)
[2025-01-17] MEDS: ATORVASTATIN CALCIUM 40 MG TABLET 80 MG PO (21:37)
[2025-01-18] VITALS (40 sets, daily range): BP systolic 129–143; BP diastolic 63–73; PULSE 62–103; TEMP 36.3–36.8; O2SAT 88–98
[2025-01-18] MEDS: DEXAMETHASONE SOD PHOS 4 MG/ML VIAL IV ×4 (00:24→22:04)
[2025-01-18] MEDS: PIPERACILLIN SODIUM/TAZOBACTAM 3.375 GM in 0.9 % SODIUM CHLORIDE 50 ML IV ×3 (00:24→15:42)
[2025-01-18 06:11] LABS: Hematocrit 29.0 % (42.0-54.0); Hemoglobin 9.0 g/dL (14.0-18.0); Mean Corpuscular HGB Conc 31.0 g/dL (29.9-35.2); Mean Corpuscular Hemoglobin 25.8 pg (25.9-34.0); Mean Corpuscular Volume 83.1 fL (80.0-94.0); Platelet Count 154 10^3/uL (150-450); Red Blood Count 3.49 10^6/uL (4.70-6.10); White Blood Count 12.5 10^3/uL (4.0-11.0)
[2025-01-18] MEDS: PANTOPRAZOLE SODIUM 40 MG TABLET.DR PO (06:14)
[2025-01-18] MEDS: HEPARIN SODIUM (PORCINE) 5,000 UNIT/ML VIAL 5000 UNIT SUBQ (06:14)
[2025-01-18] MEDS: ARTIFICIAL TEARS 300 DROP/15 ML BOTTLE OP ×3 (06:15→22:05)
[2025-01-18 06:29] LABS: Alanine Aminotransferase 24 U/L (16-63); Albumin Globulin Ratio 0.8; Albumin Level 2.7 g/dL (3.4-5.0); Alkaline Phosphatase 88 U/L (46-116); Anion Gap 8.2; Aspartate Amino Transferase 18 U/L (15-37); Blood Urea Nitrogen 44.0 mg/dL (7.0-18.0); Calcium 8.7 mg/dL (8.5-10.1); Carbon Dioxide 35.1 mmol/L (21.0-32.0); Chloride 105 mmol/L (98-107); Estimated GFR (African America 54 (>=60 mL/min/1.73m^2); Estimated GFR (Non-African Ame 45 (>=60 mL/min/1.73m^2); Globulin 3.5 g/dL; Glucose 117 mg/dL (74-106); Magnesium 1.7 mg/dL (1.8-2.4); Potassium 4.3 mmol/L (3.5-5.1); Sodium 144 mmol/L (136-145); Total Protein 6.2 g/dL (6.4-8.2)
[2025-01-18] MEDS: NITROGLYCERIN 2% 1 GRAM PACKET 0.5 GM TD ×2 (07:21→13:01)
[2025-01-18] MEDS: METOPROLOL TARTRATE 25 MG TABLET PO (08:48)
[2025-01-18] MEDS: INSULIN GLARGINE 300 UNIT/3 ML INSULN.PEN 20 UNIT SQ (08:48)
[2025-01-18] MEDS: IRON SUCROSE COMPLEX 200 MG in 0.9 % SODIUM CHLORIDE 100 ML 220 MG IV (08:48)
[2025-01-18] MEDS: MAGNESIUM OXIDE 400 MG TABLET PO ×3 (08:48→21:55)
[2025-01-18] MEDS: ASPIRIN 81 MG TABLET.DR PO (08:48)
--- NOTE | 2025-01-18 08:56 | PT.DAILY ---
Physical Therapy Daily Note PT Daily Note/Assess Start: 01/18/25 08:39 Freq: Status: Active Protocol: Document 01/18/25 08:40 [id number] (Rec: 01/18/25 08:55 [id number]) Physical Therapy Daily Note/Assessment Time In/Time Out Time In 08:06 Time Out 08:35 Pain In Pain N/A Pain Out Pain N/A Subjective Subjective Patient received supine in bed. Patient confused to day and time. Unable to provide pain rating other than to say his L knee hurts. Patient agreeable to participate with PT after considerable encouragement. Therapeutic Exercise Time Therapeutic Exercise 12 Minutes (minutes) Therapeutic Exercise 1 Units Therapeutic Exercise Treatment Therapeutic Exercise Patient performed GERBER LE ther ex for strengthening. R Treatment LE: ankle pumps, quad sets, SLR, hip ABD and heel slides for 15 reps. L LE: quad set, SLR, SAQ, hip ABD and heel slides for 15 reps. GERBER triceps extension and bicep curls with lite MRE for 10 reps. Patient requires verbal and tactile cues for elbow ther ex. Therapeutic Activity Time Therapeutic Activity 17 Minutes (minutes) Therapeutic Activity 1 Units Therapeutic Activity Treatment Bed Mobility Ability Minimum Assist Chair Transfer Moderate Assist,2 Person Assist Ability Therapeutic Activity Bed mobility: supine to R sit EOB with use of bed rail Comments is MIN A +1. Verbal cues to use hand rail for assist. Patient sate EOB ~6 minutes with GERBER UE support on bed . Encouraged patient to sit without UE support, does not follow command and becomes agitated. Pivot transfer: sit to stand with R pivot to chair is MOD A + 2. Patient LE elevated on foot rest w/ pillow to float R heel and support L residual stump. All patient needs met, CBWR. Nursing notified of patient placement and acknowledged information. Total Physical Therapy Time Total Therapy 29 Minutes Total Physical 2 Therapy Units Summary Daily Note Summary Patient confused and agitated multiple times throughout treatment. Also, C/O difficulty breathing. Verbal cues of encouragement to sit tall and breath deep. Patient is able to sit EOB 4 minutes long then first PT treatment. Patient requires constant verbal cues of encouragement to participate and ensure that he is able to help to stand to pivot to the chair. Patient would benefit from skilled care to address functional deficit to allow return to prior level of function.
[2025-01-18] MEDS: IPRATROPIUM/ALBUTEROL SULFATE 3 ML AMPUL.NEB IH ×3 (09:09→20:59)
[2025-01-18] MEDS: MAGNESIUM SULFATE/D5W 1 GM/100 ML PREMIX IV (09:14)
[2025-01-18] MEDS: ENOXAPARIN SODIUM 30 MG/0.3 ML SYRINGE SUBQ (09:15)
--- NOTE | 2025-01-18 09:21 | P.PN_ITS ---
Progress Note: Subjective Subjective Interval history: Uneventful night. Patient continues to cough. Patient continues to have mild to moderate tachypnea. Patient is off from BiPAP. Is on 2 L nasal cannula. Exam Narrative Exam Narrative: Patient is lying in bed. Awake. Somewhat restless. Asking for food. Unable to focus. Able to answer simple questions. Able to follow simple command. Cachectic and frail in appearance. Neck is supple. Chest exam revealed bilateral crackles. Bilateral wheezing as well. Heart is regular, slightly tachycardic. Abdomen is soft, nontender. Lower extremities no edema. Left below-knee amputation. Constitutional Vital Signs, click to edit/add: Last Vital Signs Temp 98.2 F 01/18/25 07:33 Pulse 71 01/18/25 08:00 Resp 20 01/18/25 08:10 BP 129/65 01/18/25 07:27 Pulse Ox 95 01/18/25 07:30 O2 Del Method Nasal Cannula 01/18/25 08:10 O2 Flow Rate 2 01/18/25 08:10 FiO2 30 01/17/25 21:45 Progress Note: Objective Labs Labs: Short CBC 01/17/25 01/18/25 Range/Units 17:48 06:02 WBC 12.5 H (4.0-11.0) 10^3/uL Hgb 9.3 L 9.0 L (14.0-18.0) g/dL Hct 29.5 L 29.0 L (42.0-54.0) % Plt Count 154 (150-450) 10^3/uL BMP 01/18/25 06:02 Sodium 144 Potassium 4.3 Chloride 105 Carbon Dioxide 35.1 H BUN 44.0 H Creatinine 1.50 H Glucose 117 H Calcium 8.7 Liver Function 01/18/25 Range/Units 06:02 Total Bilirubin 0.3 (0.2-1.0) mg/dL AST 18 (15-37) U/L ALT 24 (16-63) U/L Alkaline Phosphatase 88 (46-116) U/L Albumin 2.7 L (3.4-5.0) g/dL Progress Note: A&P Assessment and Plan (1) Acute respiratory failure with hypoxia and hypercapnia: (2) Acute heart failure: (3) Renal failure: (4) Anemia: (5) Encephalopathy: (6) CAD (coronary artery disease): Plan Acute hypoxic respiratory failure Acute hypercapnic respiratory failure Acute COPD exacerbation Pleural effusion Multifactorial secondary to acute diastolic heart failure, bilateral pleural effusion, underlying COPD, probable aspiration versus healthcare associated pneumonia Echocardiogram does not show any cardiomyopathy Patient is doing much better. He is off BiPAP He is 1 L negative balance. Continue intravenous vancomycin and Zosyn pending culture report. Continue oxygen supplementation, Decadron and DuoNeb Continue Decadron NSTEMI. EKGs showed minimal ST depression. No ST elevation. Likely secondary to high demand related to severe hypoxemia, hypercapnia, anemia. Low clinical suspicion for ACS however patient likely has underlying CAD. History of CABG in the past Patient is able to take p.o. aspirin Started patient on oral beta-augustine I added heparin subcu injection daily. Was monitoring of his hemoglobin Avoid heavy antiplatelets due to hemoglobin drop suspecting slow GI bleed. Echocardiogram does not show significant cardiomyopathy or valvular disease Family yesterday opted not to proceed with urgent cardiac cath therefore patient was not to transfer to [facility] or any other tertiary care center. Family requested no intubation, no aggressive measure but fell short of complete comfort care on hospice. Continue to honor family's wishes not to put him through aggressive medical care unless they change direction Bilateral pleural effusion Likely secondary to transudative process caused by low albumin as well as diastolic heart failure I could not exclude other possible etiologies such as exudative process and/or malignancy. This will need to be followed up with the imaging. Continue diuretics No strong clinical justification for urgent diagnostic or therapeutic thoracentesis. May need both in the future. Anemia, no evidence of acute blood loss. Status post units of RBC transfusion. Stool Hemoccult is pending. Hemoglobin at [facility] 2 weeks ago was 7.7. Iron studies consistent with iron deficiency. Patient has also an element of CKD that could be contributing to his anemia I started patient on PPI for gastric bleed prevention I started the patient on iron infusion daily. Avoid aggressive antiplatelets or anticoagulation for CAD suspecting that patient may have active slow GI bleed Patient will likely require to have anemia workup to be done in the outpatient setting to be handled by PCP in collaboration with other needed outpatient providers. This may include but not limited to EGD, colonoscopy, referral to see hematology and other needed age-appropriate cancer screening. PO/CKD. Could be related to cardiorenal disease and hemodynamic compromise on pre sentation. Continue gentle diuresis. Acceptable rise of her creatinine for the sake of keeping patient in a euvolemic state. Hypomagnesemia Magnesium supplementation. Check phosphorus level Knee wound, stump wound Continue IV antibiotic. Wound nurse consultation. Functional cognitive impairment, disability Patient was at the nursing facility for rehabilitation. Requested PT OT eval and treatment. Dysphagia Keep patient n.p.o. pending swallow team evaluation. Diabetes with hyperglycemia I started patient on Accu-Chek with a sliding scale coverage. Check A1c. Severe cachexia, frailty, failure to thrive. Moderate to severe protein calorie malnutrition Start patient on oral protein supplementation. Family is not interested in pursuing aggressive diagnostic investigation rule out underlying malignancy His prognosis continues to be poor but improved since admission CODE STATUS currently is a DNR CCA. Family requested no intubation or life support. Family requested no aggressive or heroic measures. Family requested no intervention such as endoscopy and cardiac cath.. Family requested not to transfer him yesterday back to [facility] or any other institution. Family requested admission here to [place] understanding potential limitation. Urinary Catheter Management Urinary Catheter Management Urethral: Cath placed during this visit: yes Urethral indwelling: No Insertion date: 01/16/25 Insertion time: :
[2025-01-18] MEDS: ENSURE HP 237 ML LIQUID PO ×2 (09:34→21:54)
[2025-01-18] MEDS: FUROSEMIDE 40 MG/4 ML VIAL IVP ×2 (09:34→21:54)
[2025-01-18 09:52] LABS: NT Pro B Type Natriuretic Pept 9235.0 pg/mL (<=1800.0)
[2025-01-18] MEDS: DOXYCYCLINE MONOHYDRATE 100 MG CAPSULE PO ×2 (11:34→21:54)
[2025-01-18] MEDS: INSULIN ASPART 300 UNIT/3 ML PEN SUBQ ×3 (11:35→22:08)
[2025-01-18] MEDS: ATORVASTATIN CALCIUM 40 MG TABLET 80 MG PO (21:54)
[2025-01-18] MEDS: TAMSULOSIN HCL 0.4 MG CAPSULE PO (21:54)
[2025-01-18] MEDS: QUETIAPINE FUMARATE 25 MG TABLET PO (21:54)
[2025-01-18] MEDS: METOPROLOL TARTRATE 25 MG TABLET 12.5 MG PO (21:55)
[2025-01-19] VITALS (30 sets, daily range): BP systolic 129–149; BP diastolic 61–68; PULSE 63–95; RESP 12; TEMP 36.4–36.9; O2SAT 93–100
[2025-01-19 06:38] LABS: Hematocrit 29.5 % (42.0-54.0); Hemoglobin 9.2 g/dL (14.0-18.0); Mean Corpuscular HGB Conc 31.2 g/dL (29.9-35.2); Mean Corpuscular Hemoglobin 25.9 pg (25.9-34.0); Mean Corpuscular Volume 83.1 fL (80.0-94.0); Platelet Count 136 10^3/uL (150-450); Red Blood Count 3.55 10^6/uL (4.70-6.10); White Blood Count 13.8 10^3/uL (4.0-11.0)
[2025-01-19 06:39] LABS: Anion Gap 7.0; Blood Urea Nitrogen 46.0 mg/dL (7.0-18.0); Calcium 8.6 mg/dL (8.5-10.1); Carbon Dioxide 36.1 mmol/L (21.0-32.0); Chloride 101 mmol/L (98-107); Estimated GFR (African America 48 (>=60 mL/min/1.73m^2); Estimated GFR (Non-African Ame 40 (>=60 mL/min/1.73m^2); Glucose 311 mg/dL (74-106); Potassium 4.1 mmol/L (3.5-5.1); Sodium 140 mmol/L (136-145)
[2025-01-19 06:41] LABS: Magnesium 1.7 mg/dL (1.8-2.4)
[2025-01-19] MEDS: DEXAMETHASONE SOD PHOS 4 MG/ML VIAL IV (07:38)
[2025-01-19] MEDS: INSULIN ASPART 300 UNIT/3 ML PEN SUBQ ×3 (07:43→22:39)
[2025-01-19] MEDS: PIPERACILLIN SODIUM/TAZOBACTAM 3.375 GM in 0.9 % SODIUM CHLORIDE 50 ML IV ×4 (07:45→23:47)
[2025-01-19] MEDS: NITROGLYCERIN 2% 1 GRAM PACKET 0.5 GM TD ×2 (07:51→13:28)
[2025-01-19] MEDS: IPRATROPIUM/ALBUTEROL SULFATE 3 ML AMPUL.NEB IH ×3 (08:17→20:00)
[2025-01-19] MEDS: INSULIN GLARGINE 300 UNIT/3 ML INSULN.PEN 20 UNIT SQ (09:34)
[2025-01-19] MEDS: FUROSEMIDE 40 MG/4 ML VIAL IVP (09:34)
[2025-01-19] MEDS: ENOXAPARIN SODIUM 30 MG/0.3 ML SYRINGE SUBQ (09:34)
[2025-01-19 09:43] LABS: Allen Test POSITIVE (POSITIVE); HCO3 ABG 34.9 mmol/L (22.0-26.0); Liters per Minute 3; O2 Mode N/C; Oxygen Saturation ABG 96.9 %; PO2 ABG 86.8 mmHg (80.0-100.0); Puncture Site L RAD
[2025-01-19 09:45] LABS: ABG PCO2 64.5 mmHg (35.0-45.0)
[2025-01-19] MEDS: IRON SUCROSE COMPLEX 200 MG in 0.9 % SODIUM CHLORIDE 100 ML 220 MG IV (11:46)
--- NOTE | 2025-01-19 12:09 | PM.PN ---
Progress Note: Subjective Subjective Interval history: Patient did not sleep well last night according to the nurse. He stayed up all night longer. Increased agitation and restlessness. This morning the patient is lethargic and groggy. Arousable for 10 seconds but then he falls back to sleep. Exam Narrative Exam Narrative: Patient is a groggy this morning. Arousable for 10 seconds when he falls back to sleep. Able to answer yes or no questions without consistency or accuracy. Chest exam improvement of rhonchi and wheezing noted the previously. Heart is regular. Abdomen is soft. Constitutional Vital Signs, click to edit/add: Last Vital Signs Temp 97.6 F 01/19/25 11:34 Pulse 73 01/19/25 12:07 Resp 16 01/19/25 11:34 BP 149/66 H 01/19/25 11:34 Pulse Ox 97 01/19/25 11:34 O2 Del Method BIPAP 01/19/25 11:34 O2 Flow Rate 3 01/19/25 09:30 FiO2 30 01/19/25 11:34 Progress Note: Objective Labs Labs: Short CBC 01/19/25 Range/Units 06:13 WBC 13.8 H (4.0-11.0) 10^3/uL Hgb 9.2 L (14.0-18.0) g/dL Hct 29.5 L (42.0-54.0) % Plt Count 136 L (150-450) 10^3/uL BMP 01/19/25 06:13 Sodium 140 Potassium 4.1 Chloride 101 Carbon Dioxide 36.1 H BUN 46.0 H Creatinine 1.66 H Glucose 311 H Calcium 8.6 Progress Note: A&P Assessment and Plan (1) Acute respiratory failure with hypoxia and hypercapnia: (2) Acute heart failure: (3) Renal failure: (4) Anemia: (5) Encephalopathy: (6) CAD (coronary artery disease): Plan Patient did not sleep well last night. This morning the patient is a groggy. This could be acute delirium secondary to underlying cognitive loss This could be related to metabolic encephalopathy Discontinued Decadron as may be contributing to his encephalopathy. Furthermore I did repeat the blood gas and showed that his PCO2 is climbing up and the pH is drifting down. I placed patient back on BiPAP Keep n.p.o. while on BiPAP Acute hypoxic respiratory failure Acute hypercapnic respiratory failure Acute COPD exacerbation Pleural effusion Multifactorial secondary to acute diastolic heart failure, bilateral pleural effusion, underlying COPD, probable aspiration versus healthcare associated pneumonia Echocardiogram does not show any cardiomyopathy Patient is doing much better. He is off BiPAP He is 1 L negative balance. Continue intravenous vancomycin and Zosyn pending culture report. Continue oxygen supplementation, Decadron and DuoNeb Continue Decadron NSTEMI. EKGs showed minimal ST depression. No ST elevation. Likely secondary to high demand related to severe hypoxemia, hypercapnia, anemia. Low clinical suspicion for ACS however patient likely has underlying CAD. History of CABG in the past Patient is able to take p.o. aspirin Started patient on oral beta-augustine I added heparin subcu injection daily. Was monitoring of his hemoglobin Avoid heavy antiplatelets due to hemoglobin drop suspecting slow GI bleed. Echocardiogram does not show significant cardiomyopathy or valvular disease Family yesterday opted not to proceed with urgent cardiac cath therefore patient was not to transfer to [facility] or any other tertiary care center. Family requested no intubation, no aggressive measure but fell short of complete comfort care on hospice. Continue to honor family's wishes not to put him through aggressive medical care unless they change direction Bilateral pleural effusion Likely secondary to transudative process caused by low albumin as well as diastolic heart failure I could not exclude other possible etiologies such as exudative process and/or malignancy. This will need to be followed up with the imaging. Continue diuretics No strong clinical justification for urgent diagnostic or therapeutic thoracentesis. May need both in the future. Anemia, no evidence of acute blood loss. Status post units of RBC transfusion. Stool Hemoccult is pending. Hemoglobin at [facility] 2 weeks ago was 7.7. Iron studies consistent with iron deficiency. Patient has also an element of CKD that could be contributing to his anemia I started patient on PPI for gastric bleed prevention I started the patient on iron infusion daily. Avoid aggressive antiplatelets or anticoagulation for CAD suspecting that patient may have active slow GI bleed Patient will likely require to have anemia workup to be done in the outpatient setting to be handled by PCP in collaboration with other needed outpatient providers. This may include but not limited to EGD, colonoscopy, referral to see hematology and other needed age-appropriate cancer screening. PO/CKD. Could be related to cardiorenal disease and hemodynamic compromise on presentation. His PO also could be caused by contrast nephropathy secondary to CAT scan of the chest completed in the emergency room department prior to my involvement Hold diuretics for now Hypomagnesemia Magnesium supplementation. Phosphorus level is normal. Knee wound, stump wound Continue IV antibiotic. Wound nurse consultation. Functional cognitive impairment, disability Patient was at the nursing facility for rehabilitation. Requested PT OT eval and treatment. Dysphagia Keep patient n.p.o. pending swallow team evaluation. Diabetes with hyperglycemia I started patient on Accu-Chek with a sliding scale coverage. Check A1c. Severe cachexia, frailty, failure to thrive. Moderate to severe protein calorie malnutrition Start patient on oral protein supplementation. Family is not interested in pursuing aggressive diagnostic investigation rule out underlying malignancy His prognosis continues to be poor but improved since admission CODE STATUS currently is a DNR CCA. Family requested no intubation or life support. Family requested no aggressive or heroic measures. Family requested no intervention such as endoscopy and cardiac cath.. Family requested not to transfer him yesterday back to [facility] or any other institution. Family requested admission here to [place] understanding potential limitation. I called his son-in-law Dr. Ng (family spokesperson from the medical standpoint ) to give him update on condition, status and treatment plan. He did not answer the phone. I left a message for him Urinary Catheter Management Urinary Catheter Management Urethral: Cath placed during this visit: yes, but has since been removed by the nurse Urethral indwelling: No Insertion date: 01/16/25 Insertion time: : Removal date: 01/18/25 Removal time: 17:00
--- NOTE | 2025-01-19 12:26 | PC.NURSE ---
large incontinent void, pale yellow in color
[2025-01-19] MEDS: DEXTROSE 5%-0.9% NACL 1,000 ML 1,000 ML 65 ML IV (12:39)
[2025-01-19] MEDS: ARTIFICIAL TEARS 300 DROP/15 ML BOTTLE OP ×2 (13:29→22:38)
[2025-01-19] MEDS: ATORVASTATIN CALCIUM 40 MG TABLET 80 MG PO (20:01)
[2025-01-20] VITALS (13 sets, daily range): BP systolic 123–156; BP diastolic 58–77; PULSE 60–95; RESP 12; TEMP 36.6–36.7; O2SAT 92–99
[2025-01-20] MEDS: DEXTROSE 5%-0.9% NACL 1,000 ML 1,000 ML 65 ML IV (03:31)
[2025-01-20 07:10] LABS: Hematocrit 36.2 % (42.0-54.0); Hemoglobin 11.2 g/dL (14.0-18.0); Mean Corpuscular HGB Conc 30.9 g/dL (29.9-35.2); Mean Corpuscular Hemoglobin 26.0 pg (25.9-34.0); Mean Corpuscular Volume 84.0 fL (80.0-94.0); Platelet Count 157 10^3/uL (150-450); Red Blood Count 4.31 10^6/uL (4.70-6.10); White Blood Count 14.0 10^3/uL (4.0-11.0)
[2025-01-20 07:37] LABS: Alanine Aminotransferase 30 U/L (16-63); Albumin Globulin Ratio 0.7; Albumin Level 2.6 g/dL (3.4-5.0); Alkaline Phosphatase 87 U/L (46-116); Anion Gap 8.8; Aspartate Amino Transferase 27 U/L (15-37); Blood Urea Nitrogen 38.0 mg/dL (7.0-18.0); Calcium 9.1 mg/dL (8.5-10.1); Carbon Dioxide 35.7 mmol/L (21.0-32.0); Chloride 105 mmol/L (98-107); Estimated GFR (African America 57 (>=60 mL/min/1.73m^2); Estimated GFR (Non-African Ame 47 (>=60 mL/min/1.73m^2); Globulin 3.7 g/dL; Glucose 138 mg/dL (74-106); Potassium 3.5 mmol/L (3.5-5.1); Sodium 146 mmol/L (136-145); Total Protein 6.3 g/dL (6.4-8.2)
--- NOTE | 2025-01-20 07:52 | RESP.RT ---
Patient taken off BIPAP AT 0800 FOR NURSING TO DO ORAL CARE , Patient maintaining pox of 97% on 2 liters NC RR 16 HR 85
[2025-01-20] MEDS: IPRATROPIUM/ALBUTEROL SULFATE 3 ML AMPUL.NEB IH (08:00)
[2025-01-20 08:01] LABS: NT Pro B Type Natriuretic Pept 12668.0 pg/mL (<=1800.0)
[2025-01-20] MEDS: DOXYCYCLINE MONOHYDRATE 100 MG CAPSULE PO (08:33)
[2025-01-20] MEDS: ASPIRIN 81 MG TABLET.DR PO (08:33)
[2025-01-20] MEDS: NITROGLYCERIN 2% 1 GRAM PACKET 0.5 GM TD (08:33)
[2025-01-20] MEDS: METOPROLOL TARTRATE 25 MG TABLET 12.5 MG PO (08:33)
[2025-01-20] MEDS: ENOXAPARIN SODIUM 30 MG/0.3 ML SYRINGE SUBQ (08:34)
[2025-01-20] MEDS: INSULIN GLARGINE 300 UNIT/3 ML INSULN.PEN 20 UNIT SQ (08:34)
[2025-01-20] MEDS: ENSURE HP 237 ML LIQUID PO (08:34)
[2025-01-20] MEDS: PIPERACILLIN SODIUM/TAZOBACTAM 3.375 GM in 0.9 % SODIUM CHLORIDE 50 ML IV (08:35)
--- NOTE | 2025-01-20 08:48 | W.PM.WC_ITS ---
Wound Consult Note Assessment and Plan (1) Acute respiratory failure with hypoxia and hypercapnia: (2) Acute heart failure: (3) Renal failure: (4) Anemia: (5) Encephalopathy: (6) CAD (coronary artery disease): Plan Consult: left stump ulcers Patient seen for left stump ulcers. Patient has one area on his knee and one area on his medial left BKA incision line from dehiscence. Patient arouses easily. States his name and birthday. Knows he is in the hospital. Patient has orders printed at bedside of his current treatment regimen at his SNF from his vascular doctor that performed the surgery. Being patient is currently under this physician's treatment, I will not change the orders. Patient is currently having open dehiscence packed lightly with packing strips and rubbing alcohol is being used on scabbed area on his knee. Photos taken. Patient does have a halo of erythema to both ulcers. This is most likely inflammatory response. No acute infection noted today. Patient is currently on IV antibiotics and no photos were taken on admission for comparison. Ulcer treatment completed as ordered and covered with mepilex border foam dressings. Recommendations: Continue treatment plan as per vascular See wound documentation for more details. Abdifatah Hawthorne RN, CWON Wound Assessment Patient Status Premedicated Prior to Dressing Change: No (Patient did not have any complaints of pain prior to change) Wound Left Knee: Wound Type: scabbed area Is This a Chronic Wound: No Length: 3.9 Width: 1.5 Depth: 0 Wound Bed Appearance: Yellow (dry, flaky) and Slough Percentage Slough: 100 Wound Margins Description: Well Defined Surrounding Tissue Appearance: [place] (halo of pink erythema, most likely inflammatory response) Surrounding Tissue Temperature: warm (WNL) Drainage Amount: None Primary Dressing: Absorbant Pad (covered with mepilex border dressing) Dressing Change Date: 01/20/25 left medial BKA stump: Wound Type: Incision (dehiscence) Is This a Chronic Wound: No Length: 2.5 Width: 1 Depth: 1 Wound Bed Appearance: [place], Yellow and White Percentage Granulated: 0 Percentage Slough: 100 Wound Margins Description: Well Defined Surrounding Tissue Appearance: [place] (halo of pink erythema, most likely inflammatory process) Surrounding Tissue Temperature: warm (WNL) Drainage Description: Serosanguineous Drainage Amount: Scant Drainage Odor: No Odor Dressing Status: Dry & Intact Wound Topical Solution/Irrigant: Saline Irrigant Packing Type: Gauze Packing Strips Primary Dressing: Absorbant Pad (mepilex border dressing) Were photos of the wound(s) taken and uploaded to the chart?: Yes Dressing Change Date: 01/20/25 Dressing Change Patient Tolerance: Tolerated Well
--- NOTE | 2025-01-20 09:43 | CM.NOTE ---
Rounds made with Dr. Morel, discussed with pt discharge planning. Pt will discharge to [place] today.
--- NOTE | 2025-01-20 10:00 | CM.NOTE ---
CRF completed for pt's discharge to [facility]. SS will fax to [facility] and set up transfer for pt.
--- NOTE | 2025-01-20 10:02 | SWNOTE1 ---
Pt is ready for discharge today. SW reached out to [facility] and they do have availability today to transport pt back over skilled. SW to notify nurse and family. [facility] will be here around 1:30 to get patient.
--- NOTE | 2025-01-20 10:26 | SWNOTE1 ---
MILLA called family, Makenzie, and let her know of discharge today. She voiced she will meet him back at [place]. MILLA let her know time. She voiced to make sure that his digital picture frame, another picture frame, and his hat is sent back to [place] with him. She is alright with pt returning in the hospital gown and she will bring clothes to [place]. Makenzie also stated she will notify the rest of the family. MILLA updated pt's nurse, Catie.
--- NOTE | 2025-01-20 10:30 | PT.DAILY ---
Physical Therapy Daily Note PT Daily Note/Assess Start: 01/18/25 08:39 Freq: Status: Active Protocol: Document 01/20/25 10:20 DEVONTE (Rec: 01/20/25 10:30 DEVONTE [id number]) Physical Therapy Daily Note/Assessment Time In/Time Out Time In 09:05 Time Out 10:00 Pain In Pain N/A Pain Out Pain N/A Subjective Subjective Pt supine upon arrival. Agrees to PT with motivation. Therapeutic Exercise Time Therapeutic Exercise 8 Minutes (minutes) Therapeutic Exercise 1 Units Therapeutic Exercise Treatment Therapeutic Exercise Supine R AP and heel slides, bilat QS, GS, SLR, and Treatment abduction slides 10x ea. Seated EOB R LAQ, marches, and AP 10x ea. Therapeutic Activity Time Therapeutic Activity 15 Minutes (minutes) Therapeutic Activity 1 Units Therapeutic Activity Treatment Bed Mobility Ability Minimum Assist Chair Transfer Moderate Assist Ability Therapeutic Activity Supine>sit Vivien. Bed is soiled and needs changed. Pt Comments sits EOB unsupported while back is washed. Washes his face with set up needed. Assistance to doff gown and new gown donned. Sit>stand to RW with ModA while linen is changed on bed - 2 min static standing at RW with ModA due to posterior lean. Seated rest break. Sit> stand again ModA at RW while bed is reset. Sits EOB 30 min to eat breakfast. Sit>supine CGA. Pillow under L stump for comfort. Bed alarm set and needs met upon completion. Total Physical Therapy Time Total Therapy 23 Minutes Total Physical 2 Therapy Units Summary Daily Note Summary Improved transfer ability on this date. Good endurance with static sitting.
--- NOTE | 2025-01-20 10:31 | P.DS_ITS ---
DS: Providers Provider Date of admission: 01/16/25 12:50 Primary care physician: MIKAEL NAQVI DO Consults: 01/16/25 21:51 Speech Therapy Eval and Treat Routine Reason for consultation: Swallow eval 01/17/25 09:09 Occupational Therapy Eval and Treat Routine Reason for consultation: Weakness Physical Therapy Eval and Treat Routine Reason for consultation: Weakness 01/17/25 09:34 Consult to Wound Care Routine Consulting Provider: Abdifatah Hawthorne Reason for consultation: Wound care DS: Diagnosis Discharge Diagnosis (1) Acute respiratory failure with hypoxia and hypercapnia: (2) Acute heart failure: (3) Renal failure: (4) Anemia: (5) Encephalopathy: (6) CAD (coronary artery disease): Plan As listed above and others that are not listed DS: Summary Hospital Course Hospital Course: Mr. Tran is an 84-year-old gentleman with multiple complex medical conditions including recent left below-knee amputation completed at [facility] [place] and prolonged hospitalization. He was at the correction for physical therapy rehabilitation when he was sent to the emergency room with worsening shortness of breath and unresponsive state. He was found to have the following: Acute hypoxic respiratory failure Acute hypercapnic respiratory failure Acute COPD exacerbation Pleural effusion, at least moderate size Multifactorial secondary to acute diastolic heart failure, bilateral pleural effusion, underlying COPD, probable aspiration versus healthcare associated pneumonia Echocardiogram does not show any cardiomyopathy Patient is doing much better. He is off BiPAP, he is on 2 L this morning. On discharge we will continue gentle diuresis Continue antibiotic. Continue aerosol bronchodilators Continue prednisone No intubation, no life support DNR CCA but family leaning towards complete comfort. NSTEMI. EKGs showed minimal ST depression. No ST elevation. Likely secondary to high demand related to severe hypoxemia, hypercapnia, anemia. Low clinical suspicion for ACS however patient likely has underlying CAD. History of CABG in the past Patient is able to take p.o. aspirin Started patient on oral beta-augustine I added heparin subcu injection daily. Was monitoring of his hemoglobin Avoid heavy antiplatelets due to hemoglobin drop suspecting slow GI bleed. Echocardiogram does not show significant cardiomyopathy or valvular disease Family opted not to proceed with urgent cardiac cath therefore patient was not to transfer to [facility] or any other tertiary care center. Family no intubation, no aggressive measure but fell short of complete comfort care on hospice. Continue to honor family's wishes not to put him through aggressive medical care unless they change direction Bilateral pleural effusion Likely secondary to transudative process caused by low albumin as well as diastolic heart failure I could not exclude other possible etiologies such as exudative process and/or malignancy. This will need to be followed up with the imaging. Continue diuretics No strong clinical justification for urgent diagnostic or therapeutic thoracentesis. Patient is on 2 L of oxygen. May need both in the future. Anemia, no evidence of acute blood loss. Status post units of RBC transfusion. Hemoglobin stable posttransfusion. Stool Hemoccult is pending. Hemoglobin at [facility] [place] 2 weeks ago was 7.7. Iron studies consistent with iron deficiency. Patient has also an element of CKD that could be contributing to his anemia I started patient on PPI for gastric bleed prevention I started the patient on iron infusion daily. Avoid aggressive antiplatelets or anticoagulation for CAD suspecting that patient may have active slow GI bleed Family requested to avoid any GI intervention at this time such as bleeding to have EGD and colonoscopy. PO/CKD. Could be related to cardiorenal disease and hemodynamic compromise on presentation. His PO also could be caused by contrast nephropathy secondary to CAT scan of the chest completed in the emergency room department prior to my involvement Kidney function started to improve. Resume diuretics Altered mental status, metabolic, hypoxic and hypercapnic encephalopathy on admission responded to the aforementioned treatment plan as well as the initiation of BiPAP. Patient had a setback yesterday with worsening confusion requiring re implementation of her BiPAP. This morning the patient is much more awake. He is coherent and able to answer questions. He is on 2 L. BiPAP may need to be implemented at the nursing facility if the patient decompensates. Continue treatment for his metabolic and respiratory issues as listed above Hypomagnesemia Magnesium supplementation. Phosphorus level is normal. Knee wound, stump wound No clinical evidence of active infection Wound nurse consultation. Functional cognitive impairment, disability Patient was at the nursing facility for rehabilitation. Requested PT OT eval and treatment. Dysphagia Patient was started on pur?e with nectar thick as per speech I recommend ongoing speech therapy and hopefully upgrade his diet at the nursing facility. Diabetes with hyperglycemia I started patient on Accu-Chek with a sliding scale coverage. Check A1c. Severe cachexia, frailty, failure to thrive. Moderate to severe protein calorie malnutrition Start patient on oral protein supplementation. Family is not interested in pursuing aggressive diagnostic investigation rule out underlying malignancy His prognosis continues to be poor but improved since admission. CODE STATUS currently is a DNR CCA. Family requested no intubation or life support. Family requested no aggressive or heroic measures. Family requested no intervention such as endoscopy and cardiac cath.. Family requested not to transfer him yesterday back to [facility] [place] or any other institution. Essentially, family is leaning toward comfort care approach and implementation of end-of-life care. Given the limitation of family's wishes not to put him through intervention or aggressive medical care, I believe that we have reached the maximum improvement that he would get from being in the hospital. Patient continues to have high risk of decompensation of condition jail providers with need to titrate his medications to keep him in a euvolemic state. Guarded outlook. Time Spent with Patient Time attestation: Total time spent providing and/or coordinating discharge services: Exam Constitutional Vital Signs, click to edit/add: Last Vital Signs Temp 97.8 F 01/20/25 08:15 Pulse 79 01/20/25 10:00 Resp 18 01/20/25 08:15 BP 145/77 H 01/20/25 08:15 Pulse Ox 97 01/20/25 08:15 O2 Del Method Nasal Cannula 01/20/25 08:15 O2 Flow Rate 2 01/20/25 08:15 FiO2 30 01/20/25 04:00 DS: Data Data Completed and Pending Labs on day of discharge: Labs from last 24 hours 01/20/25 01/20/25 01/19/25 07:00 06:00 22:36 WBC 14.0 H RBC 4.31 L Hgb 11.2 L Hct 36.2 L MCV 84.0 MCH 26.0 MCHC 30.9 RDW 17.4 H Plt Count 157 MPV 10.9 Sodium 146 H Potassium 3.5 Chloride 105 Carbon Dioxide 35.7 H Anion Gap 8.8 BUN 38.0 H Creatinine 1.44 H Est GFR ( Amer) 57 L Est GFR (Non-Af Amer) 47 L BUN/Creatinine Ratio 26.4 Glucose 138 H Calcium 9.1 Total Bilirubin 0.3 Direct Bilirubin 0.1 AST 27 ALT 30 Alkaline Phosphatase 87 NT-Pro-B Natriuret Pep 51064.0 H* Total Protein 6.3 L Albumin 2.6 L Globulin 3.7 Albumin/Globulin Ratio 0.7 Stool Occult Blood Positive A POC Glucose 166 H 01/19/25 01/19/25 17:18 11:05 WBC RBC Hgb Hct MCV MCH MCHC RDW Plt Count MPV Sodium Potassium Chloride Carbon Dioxide Anion Gap BUN Creatinine Est GFR ( Amer) Est GFR (Non-Af Amer) BUN/Creatinine Ratio Glucose Calcium Total Bilirubin Direct Bilirubin AST ALT Alkaline Phosphatase NT-Pro-B Natriuret Pep Total Protein Albumin Globulin Albumin/Globulin Ratio Stool Occult Blood POC Glucose 130 H 143 H Preliminary micro results at discharge 01/16/25 08:03 Blood Culture Result 2 - Preliminary Blood - Left Forearm NO GROWTH AT 36-48 HOURS. FINAL TO FOLLOW. 01/16/25 07:52 Blood Culture Result 1 - Preliminary Blood - Right Wrist NO GROWTH AT 36-48 HOURS. FINAL TO FOLLOW. Discharge Plan Discharge Disposition: Xfer SNF Condition: Serious Discharge Medications: New magnesium oxide 400 mg (241.3 mg magnesium) Tablet 400 mg PO BID Qty: 0 0RF Glucagon Emergency Kit (human) 1 mg Recon Soln 1 mg IV Q15M PRN (Reason: Hypoglycemia) Qty: 0 0RF Ensure Active Protein-Muscle Liquid 1 ea PO BID Qty: 0 0RF insulin aspart U-100 [Novolog FlexPen U-100 Insulin] 100 unit/mL (3 mL) Insulin Pen 3 - 15 unit subcut ACHS Qty: 15 0RF metoprolol tartrate 25 mg Tablet 12.5 mg PO BID Qty: 0 0RF insulin glargine [Lantus Solostar U-100 Insulin] 100 unit/mL (3 mL) Insulin Pen 20 unit SQ QD Qty: 0 0RF Insta-Glucose (with dextrin) 24 gram/31 gram Gel 31 g PO Q15M PRN (Reason: Hypoglycemia) Qty: 0 0RF amoxicillin-pot clavulanate [Augmentin] 500-125 mg tablet 1 tab PO BID Qty: 14 0RF prednisone 10 mg tablet 10 mg PO BID Qty: 20 0RF Rx Instructions: Tapered down gradually over the next 10 days to 10 mg daily isosorbide mononitrate 30 mg tablet extended release 24 hr 30 mg PO DAILY Qty: 30 0RF torsemide 20 mg tablet 30 mg PO DAILY Qty: 60 0RF Continued pantoprazole 20 mg tablet,delayed release (DR/EC) 20 mg PO DAILY tamsulosin [Flomax] 0.4 mg capsule 0.4 mg PO .QHS Tradjenta 5 mg tablet 5 mg PO DAILY Galen (with collagen) 7-7-1.5 gram powder in packet 1 packet PO BID Rx Instructions: mix 1 packet with 8-10 oz liquid docusate sodium [Colace] 100 mg capsule 100 mg PO BID PRN (Reason: constipation) tetrahydrozoline [Visine] 0.05 % drops 1 drp ophthalmic (eye) TID PRN (Reason: dry eyes) ipratropium-albuterol 0.5 mg-3 mg(2.5 mg base)/3 mL solution for nebulization 3 ml inhalation TID aspirin 81 mg tablet,chewable 81 mg PO DAILY atorvastatin [Lipitor] 80 mg tablet 80 mg PO QPM pediatric [id number] Tablet,Chewable 1 tab PO DAILY Rx Instructions: administer with a meal artificial tear([id number]) [GenTeal Tears Moderate] 0.1-0.3-0.2 % drops 2 drp ophthalmic (eye) TID acetaminophen 500 mg tablet 500 mg PO Q6H PRN (Reason: pain) polyethylene glycol 3350 [Miralax] 17 gram powder in packet 17 g PO DAILY PRN (Reason: constipation) ferrous sulfate [FeroSul] 325 mg (65 mg iron) tablet 325 mg PO .QD Rx Instructions: WITH BREAKFAST Discontinued metformin 1,000 mg tablet 1,000 mg PO BID metoprolol tartrate 25 mg tablet 25 mg PO BID trazodone 50 mg tablet 50 mg PO HS methocarbamol 500 mg tablet 500 mg PO TID PRN (Reason: muscle spasm) enoxaparin [Lovenox] 40 mg/0.4 mL syringe 40 mg subcut DAILY Patient Comments: Last dose 01/20/25 furosemide [Lasix] 20 mg tablet 20 mg PO DAILY prednisone 20 mg tablet 60 mg PO DAILY Patient Comments: 01/16/25-01/18/25 insulin lispro 100 unit/mL insulin pen 2 - 10 sliding scale dose subcut TIDWM Rx Instructions: IF GLUCOSE 150-200 -GIVE 2 UNITS 201-250 4 UNITS 251-300 6 UNITS 301-350 8 UNITS 351-400 10 UNITS GREATER THAN 400 CALL MD G[place] Tempo Pen(U-100)Insln 100 unit/mL (3 mL) insulin pen, sensor 20 unit subcut DAILY gabapentin 100 mg capsule 100 mg PO .QHS glipizide 10 mg tablet 10 mg PO .ACB Print Language: Polish Activity Restrictions/Additional Instructions: I may not have addressed or treated all of your medical illnesses or the abnormal blood work or imaging studies during this hospitalization. Please ask your primary care provider to obtain [facility] records entirely to follow up on all of the abnormal physical, laboratory, and imaging findings that I have not addressed. For correction providers Patient is DNR CCA. No intubation, no CPR, no chest compression, no shocks Diet is pur?e with nectar thick liquid. Recommend swallow team to follow patient in the continue with swallowing training hoping to upgrade his diet Fall risk, fall precaution. Recommend wound nurse care at the facility Recommend BMP and CBC every Monday and for 2 weeks and if stable make it less frequent. Recommend 2 to 4 L of oxygen to keep saturation above 92% Recommend BiPAP 16/8 with O2 bleed in to be used at night, as needed patient taking naps, as needed patient is more tachypneic or lethargic Please return back to the emergency room or seek medical attention if your symptoms worsen or return. Discharging you from [facility] does not mean that your medical care ends here and now. You may still need additional monitoring, work up, investigation, and treatment plan to be handled from this point on by out patient providers including your primary care provider and specialists. For any medication question, please contact your retail pharmacist or your [facility]. Thank you. Swimming Pool Installer/Processing Spec Instructions: Discharge to [facility] skilled Forms: Portal Instructions
--- NOTE | 2025-01-20 10:52 | DIETREC ---
Pureed diet nectar thick liquids; Ensure high portien muscle 237 ml bid po nectar thick
--- NOTE | 2025-01-20 11:15 | PM.EN ---
Event Note Event Note: I called his son in law Dr Ng to give him update. he didnt answer the phone. I left a message for him. I called his dtr Leah. I spent about 30 mins given her update on status, tx plan and discharge to SNF. I informed her that we may be dealing with end of life phase. Leah is aware that dad is at risk having future decompensation of condition. Leah is on board to continue to focus on comfort and basic medical mgt. Family is on board not to proceed with additional interventions at this time. Leah and the entire family is very appreciative of care he had received here at [facility].
[2025-01-20] MEDS: INSULIN ASPART 300 UNIT/3 ML PEN SUBQ (11:28)
--- NOTE | 2025-01-20 11:38 | CM.NOTE ---
Important Message From Medicare discussed with pt, pt verbalizes understanding and signs paper. Original given to pt and copy placed in pt's chart. Pt admitted with exacerbation COPD, talked with pt about preventative care. Pt was seeing Dr. Marroquin in the outpatient setting, pt at this time does not plan on following Dr. Marroquin. Dr. Marroquin has relocated practice, pt requesting to see another phlebotomy services technician. Pt provided with contact information for [facility], pt will need referral provided from PCP. Pt verbalizes understanding. CM also discussed pulmonary rehab with pt and provided educational pamphlet. Pt verbalizes he does have nebulizer machine at home and uses daily along with inhaler. Pt does verbalize he is active at home. CM will also put on discharge instructions pt's need for PCP referral to pulmonology for reminder.
--- NOTE | 2025-01-20 11:40 | SWNOTE1 ---
In pt's discharge is recommendation of Bipap with 02 bleed in, at naps, or when pt is more lethargic. MILLA let case management know. MILLA called Shanna, no answer. MILLA sent email to Abdifatah Michel, and [facility] to let them know. [facility] called MILLA back, MILLA explained the recommendation of Bipap. [facility] is reaching out to [facility] to see if they have a Bipap or can get one. MILLA did advise that physician would like pt to have this for severiano. [facility] to call MILLA back.
--- NOTE | 2025-01-20 11:50 | SWNOTE1 ---
SW did fax over dc summary with the physician recommendations listed, dc med rec, bipap settings from this morning, and DNRCCA order to [facility].
--- NOTE | 2025-01-20 12:49 | PC.NURSE ---
Report called to nurse Downs at the [facility]. Nurse oDwns denies any questions.
== END 2025-01-20 13:32 | DRG 280 ==
LOC: ER 11:22 → MS 12:53
PROVIDERS: Admitting Provider Internal Medicine; Emergency Provider Emergency Medicine; PCP Family Medicine; Visit Provider Internal Medicine
DX: I50.31 Acute diastolic (congestive) heart failure (principal); G93.41 Metabolic encephalopathy; I21.A1 Myocardial infarction type 2; J18.9 Pneumonia, unspecified organism; J96.01 Acute respiratory failure with hypoxia; J96.02 Acute respiratory failure with hypercapnia; J69.0 Pneumonitis due to inhalation of food and vomit; N17.9 Acute kidney failure, unspecified; J44.1 Chronic obstructive pulmonary disease with (acute) exacerbation; R64 Cachexia; Z66 Do not resuscitate; E44.0 Moderate protein-calorie malnutrition; J44.0 Chronic obstructive pulmonary disease with (acute) lower respiratory infection; K92.2 Gastrointestinal hemorrhage, unspecified; I25.2 Old myocardial infarction; I25.10 Atherosclerotic heart disease of native coronary artery without angina pectoris; N18.9 Chronic kidney disease, unspecified; E11.22 Type 2 diabetes mellitus with diabetic chronic kidney disease; D63.1 Anemia in chronic kidney disease; E83.42 Hypomagnesemia; E61.1 Iron deficiency; Z68.20 Body mass index [BMI] 20.0-20.9, adult; R54 Age-related physical debility; R62.7 Adult failure to thrive; T87.81 Dehiscence of amputation stump; Y95 Nosocomial condition; R13.10 Dysphagia, unspecified; E11.51 Type 2 diabetes mellitus with diabetic peripheral angiopathy without gangrene; E11.65 Type 2 diabetes mellitus with hyperglycemia; Z99.3 Dependence on wheelchair; Z79.01 Long term (current) use of anticoagulants; Z79.4 Long term (current) use of insulin; Z79.84 Long term (current) use of oral hypoglycemic drugs; Z79.52 Long term (current) use of systemic steroids; Z89.512 Acquired absence of left leg below knee; Z95.1 Presence of aortocoronary bypass graft; Z87.891 Personal history of nicotine dependence
CPT/HCPCS: 36415; 36430; 36600; 51702; 70450; 71045; 71275; 80048; 80053; 80076; 81001; 82728; 82805; 82948; 83540; 83550; 83605; 83735; 83880; 84100; 84484; 85007; 85014; 85018; 85027; 86850; 86900; 86901; 86923; 87040; 87811; 92610; 93005; 93306; 94640; 94660; 94761; 96374; 96375; 97110; 97161; 97165; 97530; 99291; 99292; A6213; G0328; J1100; J1644; J1650; J1756; J1938; J2270; J2543; J2919; J3360; J3373; J3475; P9016; P9046; Q9967